=== PATIENT | female | born 1980 | race Caucasian/White ===

== ENCOUNTER 2018-08-13 10:33 | Emergency (ER) | payer MEDICAID ==
[2018-08-13 11:58] LABS: Urine Blood TRACE (NEG); Urine Glucose NEGATIVE (NEG); Urine Protein NEGATIVE (NEG); Urine Specific Gravity 1.025 (1.005-1.030)
--- NOTE | 2018-08-13 12:36 | RAD REPORT ---
EXAM DESCRIPTION: RAD - Hip Right 2 View - 08/13/2018 12:24 pm CLINICAL HISTORY: Fall, persistent right hip pain COMPARISON: None. FINDINGS: AP and frog-leg views of the right hip were obtained. There is no fracture or dislocation . No acute or destructive bony process seen. IMPRESSION: Negative right hip examination for acute findings.
--- NOTE | 2018-08-13 12:46 | EDPHYS ---
Physician Documentation [facility] Name: Meredith Gillette Age: 38 yrs Sex: Female : 1980 Arrival Date: 08/13/2018 Time: 10:35 Bed 12 [facility] MD: DK RAYO ED Physician Masoud Camp HPI: 08/13 12:42 This 38 yrs old Female presents to ER via Ambulatory with complaints of Right pm1 Hip Pain. 12:42 The patient or guardian reports pain. that occurred at home, sustained from a fall, pm1 from a standing position, There is no obvious deformity, The patient is able to self ambulate. The patient is able to bear their full body weight. There is no radiation of the patient's discomfort. The complaints affect the right hip. Onset: The symptoms/episode began/occurred 2 week(s) ago. Modifying factors: The symptoms are alleviated by remaining still, the symptoms are aggravated by palpation and walking. Associated signs and symptoms: Pertinent negatives: chest pain, fever, shortness of breath, calf pain and tenderness. Severity of symptoms: in the emergency department the symptoms are unchanged. The patient has not experienced similar symptoms in the past. The patient has not recently seen a physician. Patient tripped on her bed frame and landed on her hips. Patient with bruise to left hip with initial pain that has resolved. Patient with right hip pain that has continued. Patient has been able to walk since the injury. 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 - Social history:: Smoking status: Patient uses tobacco products, unknown amount. - Ebola Screening: : No symptoms or risks identified at this time. ROS: 12:42 Constitutional: Negative for fever, chills, and weight loss, Eyes: Negative for injury, pm1 pain, redness, and discharge, ENT: Negative for injury, pain, and discharge, Neck: Negative for injury, pain, and swelling, Cardiovascular: Negative for chest pain, palpitations, and edema, Respiratory: Negative for shortness of breath, cough, wheezing, and pleuritic chest pain, Abdomen/GI: Negative for abdominal pain, nausea, vomiting, diarrhea, and constipation, Back: Negative for injury and pain, : Negative for injury, bleeding, discharge, and swelling. 12:42 Skin: Negative for injury, rash, and discoloration, Neuro: Negative for headache, weakness, numbness, tingling, and seizure. 12:42 MS/extremity: Positive for pain, of the right hip, Negative for decreased range of motion, deformity. Exam: 12:42 Constitutional: This is a well developed, well nourished patient who is awake, alert, pm1 and in no acute distress. Head/Face: Normocephalic, atraumatic. Eyes: Pupils equal round and reactive to light, extra-ocular motions intact. Lids and lashes normal. Conjunctiva and sclera are non-icteric and not injected. Cornea within normal limits. Periorbital areas with no swelling, redness, or edema. ENT: Nares patent. No nasal discharge, no septal abnormalities noted. Tympanic membranes are normal and external auditory canals are clear. Oropharynx with no redness, swelling, or masses, exudates, or evidence of obstruction, uvula midline. Mucous membranes moist. Neck: Trachea midline, no thyromegaly or masses palpated, and no cervical lymphadenopathy. Supple, full range of motion without nuchal rigidity, or vertebral point tenderness. No Meningismus. Chest/axilla: Normal chest wall appearance and motion. Nontender with no deformity. No lesions are appreciated. Cardiovascular: Regular rate and rhythm with a normal S1 and S2. No gallops, murmurs, or rubs. Normal PMI, no JVD. No pulse deficits. Respiratory: Lungs have equal breath sounds bilaterally, clear to auscultation and percussion. No rales, rhonchi or wheezes noted. No increased work of breathing, no retractions or nasal flaring. Abdomen/GI: Soft, non-tender, with normal bowel sounds. No distension or tympany. No guarding or rebound. No evidence of tenderness throughout. Back: No spinal tenderness. No costovertebral tenderness. Full range of motion. Skin: Warm, dry with normal turgor. Normal color with no rashes, no lesions, and no evidence of cellulitis. MS/ Extremity: Pulses equal, no cyanosis. Neurovascular intact. Full, normal range of motion. 12:42 Neuro: Orientation: is normal, Motor: is normal, Sensation: is normal, no obvious gross deficits. Vital Signs: 11:07 BP 101 / 74; Pulse 90; Resp 18; Temp 98.1; Pulse Ox 100% on R/A; Weight 90.72 kg; ph Height 5 ft. 9 in. (175.26 cm); Pain 4/10; 11:37 BP 103 / 81; Pulse 90; Resp 18; Pulse Ox 100% on R/A; ph 11:07 Body Mass Index 29.53 (90.72 kg, 175.26 cm) ph MDM: 10:57 Patient medically screened. pm1 12:42 Data reviewed: vital signs. Data interpreted: Pulse oximetry: on room air is 100 %. pm1 Interpretation: normal. Counseling: I had a detailed discussion with the patient and/or guardian regarding: the historical points, exam findings, and any diagnostic results supporting the discharge/admit diagnosis, radiology results, the need for outpatient follow up, to return to the emergency department if symptoms worsen or persist or if there are any questions or concerns that arise at home. 08/13 11:46 Order name: Urine Dipstick--Ancillary (enter results); Complete Time: 11:59 eb 08/13 11:46 Order name: Urine --Ancillary (enter results); Complete Time: 11:59 eb 08/13 11:12 Order name: Hip Right 2 View XRAY; Complete Time: 12:37 pm1 08/13 11:12 Order name: Urine Dipstick-Ancillary (obtain specimen); Complete Time: 11:26 pm1 08/13 11:12 Order name: Urine Test (obtain specimen); Complete Time: 11:26 pm1 Administered Medications: 12:50 Drug: [place] 5 mg-325 mg 1 tabs Route: PO; iw 12:50 Drug: Ibuprofen 600 mg Route: PO; iw Disposition: 08/13/18 12:45 Discharged to Home. Impression: Pain in right hip. - Condition is Stable. - Discharge Instructions: Musculoskeletal Pain, Hip Pain. - Prescriptions for Tylenol- Codeine #3 300-30 mg Oral Tablet - take 2 tablets by ORAL route every 6 hours As needed; 20 tablet. - Medication Reconciliation Form, Thank You Letter, Antibiotic Education, Prescription Opioid Use form. - Follow up: Emergency Department; When: As needed; Reason: Worsening of condition. Follow up: Private Physician; When: 2 - 3 days; Reason: Recheck today's complaints, Continuance of care, Re-evaluation by your physician. - Problem is new. - Symptoms have improved. Addendum: 08/16/2018 08:24 Co-signature as Attending Physician, Masoud Camp MD I agree with the assessment and k dr plan of care. Signatures: Dispatcher [employer] EDMS Masoud Camp MD MD kdr Fifi Bob RN RN iw Danielle Bowers RN RN ph Joselo Deutsch, ASHANTI GRAIN MILLER HELPER pm1 Corrections: (The following items were deleted from the chart) 08/13 13:25 12:45 08/13/2018 12:45 Discharged to Home. Impression: Pain in right hip. Condition is ph Stable. Forms are Medication Reconciliation Form, Thank You Letter, Antibiotic Education, Prescription Opioid Use. Follow up: Emergency Department; When: As needed; Reason: Worsening of condition. Follow up: Private Physician; When: 2 - 3 days; Reason: Recheck today's complaints, Continuance of care, Re-evaluation by your physician. Problem is new. Symptoms have improved. pm1
--- NOTE | 2018-08-13 12:46 | ER ---
Nurse's Notes [facility] Name: Meredith Gillette Age: 38 yrs Sex: Female : 1980 Arrival Date: 08/13/2018 Time: 10:35 Bed 12 [facility] MD: DK RAYO Diagnosis: Pain in right hip Presentation: 08/13 10:59 Presenting complaint: Patient states: she "tripped over her bed" about a week and a ph half ago. PT states she has right hip pain that radiates down her leg. Transition of care: patient was not received from another setting of care. Onset of symptoms was August 13, 2018. Risk Assessment: Do you want to hurt yourself or someone else? Patient reports no desire to harm self or others. Initial Sepsis Screen: Does the patient meet any 2 criteria? No. Patient's initial sepsis screen is negative. Does the patient have a suspected source of infection? No. Patient's initial sepsis screen is negative. Care prior to arrival: None. 10:59 Method Of Arrival: Ambulatory ph 10:59 Acuity: MIL 4 ph Triage Assessment: 11:09 General: Appears in no apparent distress. uncomfortable, Behavior is calm, cooperative, ph appropriate for age, Denies fever. Pain: Complains of pain in right leg Pain radiates to lower leg Pain currently is 4 out of 10 on a pain scale. Pain began 1.5 weeks ago. EENT:. Neuro: Level of Consciousness is awake, alert, obeys commands, Oriented to person, place, time, situation. Cardiovascular: Capillary refill < 3 seconds in bilateral toes Patient's skin is warm and dry. Pulses are all present. Respiratory: Airway is patent Trachea midline Respiratory effort is even, unlabored, Respiratory pattern is regular, symmetrical. Derm: Skin is intact, is healthy with good turgor, Skin is dry, Skin is pink, warm \\T\\ dry. Skin temperature is warm. Musculoskeletal: Circulation, motion, and sensation intact. Range of motion: intact in all extremities. 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 - Social history:: Smoking status: Patient uses tobacco products, unknown amount. - Ebola Screening: : No symptoms or risks identified at this time. Screenin:14 Abuse screen: Denies threats or abuse. Nutritional screening: No deficits noted. ph Tuberculosis screening: No symptoms or risk factors identified. Fall Risk None identified. Assessment: 11:50 Reassessment: Patient appears in no apparent distress at this time. Patient and/or iw family updated on plan of care and expected duration. Pain level reassessed. Patient is alert, oriented x 3, equal unlabored respirations, skin warm/dry/pink. pt ambulatory to bed 12. Vital Signs: 11:07 BP 101 / 74; Pulse 90; Resp 18; Temp 98.1; Pulse Ox 100% on R/A; Weight 90.72 kg; ph Height 5 ft. 9 in. (175.26 cm); Pain 4/10; 11:37 BP 103 / 81; Pulse 90; Resp 18; Pulse Ox 100% on R/A; ph 11:07 Body Mass Index 29.53 (90.72 kg, 175.26 cm) ph ED Course: 10:35 Patient arrived in ED. rg4 10:36 DK RAYO is Private Physician. rg4 10:55 Danielle Bowers, RN is Primary Nurse. ph 10:56 Joselo Deutsch [facility] pm1 10:56 Masoud Camp MD is Attending Physician. pm1 11:00 Arm band placed on. ph 11:03 Triage completed. ph 11:16 Patient has correct armband on for positive identification. Bed in low position. Call ph light in reach. Warm blanket given. 12:18 Patient moved to radiology via wheelchair. mh1 12:19 Hip Right 2 View XRAY In Process Unspecified. EDMS 12:22 Primary Nurse role handed off by Danielle Bowers, MARTIN iw 12:22 Fifi Bob, RN is Primary Nurse. iw 12:22 No provider procedures requiring assistance completed. Patient did not have IV access iw during this emergency room visit. Administered Medications: 12:50 Drug: [place] 5 mg-325 mg 1 tabs Route: PO; iw 12:50 Drug: Ibuprofen 600 mg Route: PO; iw Outcome: 12:45 Discharge ordered by . pm1 13:24 Discharged to home ambulatory. iw 13:24 Condition: good 13:24 Discharge instructions given to patient, Instructed on discharge instructions, follow up and referral plans. medication usage, Demonstrated understanding of instructions, follow-up care, medications, Prescriptions given X 1. 13:25 Patient left the ED. ph Signatures: Dispatcher [employer] EDMS Cassie Bella 1 Fifi Bob RN RN iw Danielle Bowers RN RN ph Joselo Deutsch, ASHANTI NEUROLOGY PROFESSOR pm[address] rg4 Corrections: (The following items were deleted from the chart) 11:20 11:07 BP 101 / 74; Pulse 90bpm; Resp 18bpm; Pulse Ox 100% RA; Pain 4/10; ph ph
[2018-08-13] MEDS ORDERED: IBUPROFEN 200 MG TAB PO ONE (13:04)
[2018-08-13] MEDS ORDERED: HYDROCODONE/APAP 5/325 MG TAB ONE (13:04)
[2018-08-13 13:30] VITALS: TEMP 98.1; O2SAT 100
[2018-08-13 13:31] VITALS: BP 103/81
== END 2018-08-13 13:25 | disposition home or self-care (01) ==
LOC: ER 10:33
DX: M25.551 Pain in right hip (principal); I10 Essential (primary) hypertension; J44.9 Chronic obstructive pulmonary disease, unspecified; F32.9 Major depressive disorder, single episode, unspecified; Z72.0 Tobacco use
CPT/HCPCS: 81003; 81025; 99283

== ENCOUNTER 2019-01-31 17:48 | Emergency (ER) | payer MEDICAID ==
--- NOTE | 2019-01-31 19:50 | ER ---
Nurse's Notes [facility] Name: Meredith Gillette Age: 38 yrs Sex: Female : 1980 Arrival Date: 01/31/2019 Time: 17:53 Bed 5 Private MD: Diagnosis: Dental caries on smooth surface penetrating into dentin Presentation: 01/31 17:59 Presenting complaint: Patient states: Left lower dental pain. Went to dentist today, la1 needs to see oral surgeonmissy not working. Transition of care: patient was not received from another setting of care. Onset of symptoms was January 31, 2019. Risk Assessment: Do you want to hurt yourself or someone else? Patient reports no desire to harm self or others. Initial Sepsis Screen: Does the patient meet any 2 criteria? No. Patient's initial sepsis screen is negative. Does the patient have a suspected source of infection? No. Patient's initial sepsis screen is negative. Care prior to arrival: None. 17:59 Method Of Arrival: Ambulatory la1 17:59 Acuity: MIL 5 la1 Historical: - Allergies: 18:00 No Known Allergies; la1 - Home Meds: 20:10 Buspirone Oral [Active]; gabapentin Oral [Active]; lisinopril Oral [Active]; Topamax lp1 Oral [Active]; - PMHx: 18:00 COPD; Depression; Hypertension; Migraines; la1 - Immunization history:: Adult Immunizations up to date. - Social history:: Smoking status: Patient/guardian denies using tobacco. - Ebola Screening: : No symptoms or risks identified at this time. Screenin:04 Abuse screen: Denies threats or abuse. Denies injuries from another. Nutritional lp1 screening: No deficits noted. Tuberculosis screening: No symptoms or risk factors identified. Fall Risk Assessment: 20:04 General: Appears uncomfortable, Behavior is appropriate for age. Pain: Complains of lp1 pain in mouth Pain currently is 10 out of 10 on a pain scale. Neuro: Level of Consciousness is awake, alert, obeys commands, Oriented to person, place, time, situation. Cardiovascular: Patient's skin is warm and dry. Respiratory: Respiratory effort is even, unlabored, Respiratory pattern is regular, Breath sounds are clear bilaterally. GI: No deficits noted. : No deficits noted. EENT: Oral mucosa is moist. Poor dentition noted. Reports pain in mouth. Derm: Skin is pink, warm \T\ dry. Musculoskeletal: No deficits noted. Vital Signs: 18:00 BP 144 / 102; Pulse 98; Resp 16; Temp 98.7; Pulse Ox 100% on R/A; Weight 99.79 kg; la1 Height 5 ft. 9 in. (175.26 cm); 20:03 BP 138 / 88; Pulse 86; Resp 18; Pulse Ox 96% on R/A; lp1 18:00 Body Mass Index 32.49 (99.79 kg, 175.26 cm) la1 ED Course: 17:53 Patient arrived in ED. am2 18:00 Triage completed. la1 18:00 Arm band placed on right wrist. la1 18:53 Ramonita Chavis FNP-C is [facility]. snw 18:54 Kyle Vera MD is Attending Physician. snw 19:50 Apple Douglas, RN is Primary Nurse. lp1 20:05 Patient has correct armband on for positive identification. lp1 20:05 No provider procedures requiring assistance completed. Patient did not have IV access lp1 during this emergency room visit. Administered Medications: 20:02 Drug: Augmentin 875 mg Route: PO; lp1 20:08 Follow up: Response: Medication administered at discharge. lp1 20:02 Drug: TORadol 30 mg Route: IM; Site: right deltoid; lp1 20:08 Follow up: Response: Medication administered at discharge. lp1 20:03 Drug: [place] 5 mg-325 mg 1 tabs Route: PO; lp1 20:08 Follow up: Response: Medication administered at discharge. lp1 Outcome: 19:49 Discharge ordered by . snw 20:09 Discharged to home ambulatory, with significant other. lp1 20:09 Condition: good 20:09 Discharge instructions given to patient, Instructed on discharge instructions, follow up and referral plans. medication usage, Demonstrated understanding of instructions, follow-up care, medications, Prescriptions given X 3. 20:12 Patient left the ED. lp1 Signatures: Ramonita Chavis FNP-C GARMENT SEWING MACHINE OPERATOR-Csnw Apple Douglas RN RN lp1 Bola Cade RN RN la1 Meredith Deleon am2 Corrections: (The following items were deleted from the chart) 20:05 20:04 Pain: Complains of pain in mouth Pain currently is 10 out of 10 on a pain scale. lp1 lp1 20:06 20:04 EENT: Oral mucosa is moist. Poor dentition noted. lp1 lp1
--- NOTE | 2019-01-31 19:50 | EDPHYS ---
Physician Documentation [facility] Name: Meredith Gillette Age: 38 yrs Sex: Female : 1980 Arrival Date: 01/31/2019 Time: 17:53 Bed 5 Private MD: ED Physician Kyle Vera HPI: 02/01 00:25 This 38 yrs old Female presents to ER via Ambulatory with complaints of snw Toothache. 00:25 The patient presents with pain. The problem is located in the lower right second molar. snw Onset: The symptoms/episode began/occurred gradually, 2 month(s) ago, and became worse yesterday, and became persistent. Duration: The symptoms are continuous. Associated signs and symptoms: Pertinent positives: pain. Severity of symptoms: At their worst the symptoms were moderate. It is unknown whether or not the patient has had similar symptoms in the past. The patient has not recently seen a physician. Historical: - Allergies: 01/31 18:00 No Known Allergies; la1 - Home Meds: 20:10 Buspirone Oral [Active]; gabapentin Oral [Active]; lisinopril Oral [Active]; Topamax lp1 Oral [Active]; - PMHx: 18:00 COPD; Depression; Hypertension; Migraines; la1 - Immunization history:: Adult Immunizations up to date. - Social history:: Smoking status: Patient/guardian denies using tobacco. - Ebola Screening: : No symptoms or risks identified at this time. ROS: 02/01 00:21 Constitutional: Negative for fever, chills, and weight loss, Eyes: Negative for injury, snw pain, redness, and discharge, ENT: Negative for injury, pain, and discharge, Neck: Negative for injury, pain, and swelling, Cardiovascular: Negative for chest pain, palpitations, and edema, Respiratory: Negative for shortness of breath, cough, wheezing, and pleuritic chest pain, Abdomen/GI: Negative for abdominal pain, nausea, vomiting, diarrhea, and constipation, Back: Negative for injury and pain, : Negative for injury, bleeding, discharge, and swelling, MS/Extremity: Negative for injury and deformity, Skin: Negative for injury, rash, and discoloration, Neuro: Negative for headache, weakness, numbness, tingling, and seizure. ENT: Positive for dental pain, Negative for injury or acute deformity. Exam: 00:21 Constitutional: This is a well developed, well nourished patient who is awake, alert, snw and in no acute distress. Head/Face: Normocephalic, atraumatic. Eyes: Pupils equal round and reactive to light, extra-ocular motions intact. Lids and lashes normal. Conjunctiva and sclera are non-icteric and not injected. Cornea within normal limits. Periorbital areas with no swelling, redness, or edema. ENT: Nares patent. No nasal discharge, no septal abnormalities noted. Tympanic membranes are normal and external auditory canals are clear. Oropharynx with no redness, swelling, or masses, exudates, or evidence of obstruction, uvula midline. Mucous membranes moist. dental pain to left mandibular 1st molar Neck: Trachea midline, no thyromegaly or masses palpated, and no cervical lymphadenopathy. Supple, full range of motion without nuchal rigidity, or vertebral point tenderness. No Meningismus. Chest/axilla: Normal chest wall appearance and motion. Nontender with no deformity. No lesions are appreciated. Cardiovascular: Regular rate and rhythm with a normal S1 and S2. No gallops, murmurs, or rubs. Normal PMI, no JVD. No pulse deficits. Respiratory: Lungs have equal breath sounds bilaterally, clear to auscultation and percussion. No rales, rhonchi or wheezes noted. No increased work of breathing, no retractions or nasal flaring. Abdomen/GI: Soft, non-tender, with normal bowel sounds. No distension or tympany. No guarding or rebound. No evidence of tenderness throughout. Back: No spinal tenderness. No costovertebral tenderness. Full range of motion. Skin: Warm, dry with normal turgor. Normal color with no rashes, no lesions, and no evidence of cellulitis. MS/ Extremity: Pulses equal, no cyanosis. Neurovascular intact. Full, normal range of motion. Neuro: Awake and alert, GCS 15, oriented to person, place, time, and situation. Cranial nerves II-XII grossly intact. Motor strength 5/5 in all extremities. Sensory grossly intact. Cerebellar exam normal. Normal gait. Psych: Awake, alert, with orientation to person, place and time. Behavior, mood, and affect are within normal limits. Vital Signs: 01/31 18:00 BP 144 / 102; Pulse 98; Resp 16; Temp 98.7; Pulse Ox 100% on R/A; Weight 99.79 kg; la1 Height 5 ft. 9 in. (175.26 cm); 20:03 BP 138 / 88; Pulse 86; Resp 18; Pulse Ox 96% on R/A; lp1 18:00 Body Mass Index 32.49 (99.79 kg, 175.26 cm) la1 MDM: 19:48 Patient medically screened. snw 02/01 00:24 Data reviewed: vital signs, nurses notes. Data interpreted: Pulse oximetry: on room air snw is 96 %. Interpretation: acceptable. Counseling: I had a detailed discussion with the patient and/or guardian regarding: the historical points, exam findings, and any diagnostic results supporting the discharge/admit diagnosis, the presence of at least one elevated blood pressure reading (>120/80) during this emergency department visit, the need for outpatient follow up, to return to the emergency department if symptoms worsen or persist or if there are any questions or concerns that arise at home. Response to treatment: the patient's symptoms have mildly improved after treatment. Special discussion: Based on the history and exam findings, there is no indication for further emergent testing or inpatient evaluation. I discussed with the patient/guardian the need to see a dentist for further evaluation of the symptoms. Administered Medications: 01/31 20:02 Drug: Augmentin 875 mg Route: PO; lp1 20:08 Follow up: Response: Medication administered at discharge. lp1 20:02 Drug: TORadol 30 mg Route: IM; Site: right deltoid; lp1 20:08 Follow up: Response: Medication administered at discharge. lp1 20:03 Drug: [place] 5 mg-325 mg 1 tabs Route: PO; lp1 20:08 Follow up: Response: Medication administered at discharge. lp1 Disposition: 01/31/19 19:49 Discharged to Home. Impression: Dental caries on smooth surface penetrating into dentin. - Condition is Stable. - Discharge Instructions: Dental Caries, Adult, Dental Pain, Preventive Dental Care, Adult. - Prescriptions for chlorhexidine gluconate 0.12 % Mucous Membrane mouthwash - place 15 milliliter by MUCOUS MEMBRANE route 2 times per day after brushing teeth, swish in mouth for 30 seconds then spit out; 480 milliliter. Amoxicillin 500 mg Oral Capsule - take 1 capsule by ORAL route every 8 hours for 10 days; 30 tablet. Mobic 7.5 mg Oral Tablet - take 1 tablet by ORAL route once daily take with food; 20 tablet. - Medication Reconciliation Form, Thank You Letter, Antibiotic Education, Prescription Opioid Use form. - Follow up: Private Physician; When: 2 - 3 days; Reason: Recheck today's complaints, Continuance of care, Re-evaluation by your physician. Follow up: Emergency Department; When: As needed; Reason: Fever > 102 F. Signatures: Ramonita Chavis, GLOBAL COMPENSATION DIRECTOR-C GLOBAL COMPENSATION DIRECTOR-Csnw Apple Douglas, RN RN lp1 Bola Cade RN RN la1 Corrections: (The following items were deleted from the chart) 20:12 19:49 01/31/2019 19:49 Discharged to Home. Impression: Dental caries on smooth surface lp1 penetrating into dentin. Condition is Stable. Forms are Medication Reconciliation Form, Thank You Letter, Antibiotic Education, Prescription Opioid Use. Follow up: Private Physician; When: 2 - 3 days; Reason: Recheck today's complaints, Continuance of care, Re-evaluation by your physician. Follow up: Emergency Department; When: As needed; Reason: Fever > 102 F. snw
[2019-01-31] MEDS ORDERED: KETOROLAC 30 MG/ML INJ ONE (19:55)
[2019-01-31] MEDS ORDERED: HYDROCODONE/APAP 5/325 MG TAB ONE (19:55)
[2019-01-31] MEDS ORDERED: AMOX/K CLAV 875 MG TAB ONE (19:55)
[2019-01-31 21:43] VITALS: TEMP 98.7
[2019-01-31 21:44] VITALS: BP 138/88; O2SAT 96
== END 2019-01-31 20:12 | disposition home or self-care (01) ==
LOC: ER 17:48
DX: K02.62 Dental caries on smooth surface penetrating into dentin (principal); I10 Essential (primary) hypertension; J44.9 Chronic obstructive pulmonary disease, unspecified; G43.909 Migraine, unspecified, not intractable, without status migrainosus; F32.9 Major depressive disorder, single episode, unspecified
CPT/HCPCS: 96372; 99283

== ENCOUNTER 2019-05-02 10:05 | Emergency (ER) | payer MEDICAID ==
--- NOTE | 2019-05-02 11:34 | RAD REPORT ---
EXAM DESCRIPTION: CT - Thorax Wo Con - 05/02/2019 11:17 am CLINICAL HISTORY: Chest pain 5 COMPARISON: None TECHNIQUE: Computed axial tomography of the chest was obtained. Contrast was not requested. All CT scans are performed using dose optimization technique as appropriate and may include automated exposure control or mA/KV adjustment according to patient size. FINDINGS: The evaluation of mediastinum, blaire and vessels is limited secondary to lack of IV contras t administration. Nondisplaced fractures involve the left fourth and fifth anterolateral ribs Small left pleural effusion. Minimal ground-glass opacities left lung. No mediastinal hematoma IMPRESSION: Nondisplaced fractures involve the left fourth and fifth anterolateral ribs Small left pleural effusion
--- NOTE | 2019-05-02 11:49 | ER ---
Nurse's Notes [facility] Name: Meredith Gillette Age: 39 yrs Sex: Female : 1980 Arrival Date: 05/02/2019 Time: 10:07 Bed 14 Private MD: Diagnosis: Multiple fractures of ribs, left side Presentation: 05/02 10:15 Presenting complaint: Patient states: I was seated on the floor when my son picked me sg up from behind to help me up, squeezing my ribs, have pain on the left side of my ribs and chest, reports increased pain with deep breathing and cough, denies SOB at rest. Transition of care: patient was not received from another setting of care. Onset of symptoms was May 02, 2019. Risk Assessment: Do you want to hurt yourself or someone else? Patient reports no desire to harm self or others. Initial Sepsis Screen: Does the patient meet any 2 criteria? No. Patient's initial sepsis screen is negative. Does the patient have a suspected source of infection? No. Patient's initial sepsis screen is negative. Care prior to arrival: None. 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 - Social history:: Smoking status: Patient/guardian denies using tobacco. - Ebola Screening: : Patient negative for fever greater than or equal to 101.5 degrees Fahrenheit, and additional compatible Ebola Virus Disease symptoms Patient denies exposure to infectious person Patient denies travel to an Ebola-affected area in the 21 days before illness onset No symptoms or risks identified at this time. Screenin:51 Abuse screen: Denies threats or abuse. Denies injuries from another. Nutritional ca1 screening: No deficits noted. Tuberculosis screening: No symptoms or risk factors identified. Fall Risk None identified. Assessment: 10:51 General: Appears in no apparent distress. comfortable, Behavior is calm, cooperative, ca1 appropriate for age. Pain: Complains of pain in left lateral posterior chest Pain does not radiate. Pain currently is 8 out of 10 on a pain scale. Neuro: Level of Consciousness is awake, alert, obeys commands, Oriented to person, place, time, situation, Appropriate for age. Cardiovascular: Heart tones S1 S2 present Capillary refill < 3 seconds Patient's skin is warm and dry. Respiratory: Airway is patent Respiratory effort is even, unlabored, Respiratory pattern is regular, symmetrical, Breath sounds are clear bilaterally. GI: Abdomen is round non-distended, Bowel sounds present X 4 quads. Abd is soft and non tender X 4 quads. : No deficits noted. No signs and/or symptoms were reported regarding the genitourinary system. EENT: No deficits noted. No signs and/or symptoms were reported regarding the EENT system. Derm: Skin is intact, is healthy with good turgor, Skin is pink, warm \T\ dry. Musculoskeletal: Circulation, motion, and sensation intact. Capillary refill < 3 seconds, Range of motion: intact in all extremities. 11:56 Reassessment: Instructed on use of Incentive Spirometer. Demonstrated understanding by ca1 use of IS. Reassessment: Patient appears in no apparent distress at this time. Patient is alert, oriented x 3, equal unlabored respirations, skin warm/dry/pink. Vital Signs: 10:17 BP 154 / 95; Pulse 89; Resp 18; Pulse Ox 100% on R/A; sg 11:25 BP 137 / 94; Pulse 86; Resp 17 S; Pulse Ox 98% on R/A; ca1 ED Course: 10:07 Patient arrived in ED. rg4 10:15 Arm band placed on. sg 10:17 Triage completed. sg 10:39 Alondra Menjivar, MARTIN is Primary Nurse. ca1 10:41 William Angeles PA is PHCP. jr8 10:41 Dejuan Tolbert MD is Attending Physician. jr8 10:51 Patient has correct armband on for positive identification. Bed in low position. Call ca1 light in reach. Side rails up X 1. Pulse ox on. NIBP on. Warm blanket given. 11:17 CT Chest Wo Con In Process Unspecified. EDMS 12:05 No provider procedures requiring assistance completed. Patient did not have IV access ca1 during this emergency room visit. Administered Medications: No medications were administered Outcome: 11:48 Discharge ordered by . jr8 12:05 Discharged to home ambulatory, with significant other. ca1 12:05 Condition: stable 12:05 Discharge instructions given to patient, Instructed on discharge instructions, follow up and referral plans. no drinking with medication, no driving heavy equipment, medication usage, Demonstrated understanding of instructions, follow-up care, medications, Prescriptions given X 2. 12:06 Patient left the ED. ca1 Signatures: Dispatcher [employer] EDMS Maurice Lopez RN RN sg Roszak, Josh, PA PA jr[address] Alondra Menjivar RN RN ca1 Corrections: (The following items were deleted from the chart) 12:06 12:05 Discharge instructions given to patient, Instructed on discharge instructions, ca1 follow up and referral plans. no drinking with medication, no driving heavy equipment, medication usage, Demonstrated understanding of instructions, follow-up care, medications, ca1
--- NOTE | 2019-05-02 11:49 | EDPHYS ---
Physician Documentation [facility] Name: Meredith Gillette Age: 39 yrs Sex: Female : 1980 Arrival Date: 05/02/2019 Time: 10:07 Bed 14 Private MD: ED Physician Dejuan Tolbert HPI: 05/02 11:14 This 39 yrs old Female presents to ER via Ambulatory with complaints of Rib jr8 Pain. 11:14 The patient or guardian reports chest pain that is located primarily in the left jr8 lateral anterior chest. Onset: acutely, 5 day(s) ago. The pain does not radiate. Associated signs and symptoms: The patient has no apparent associated signs or symptoms. The chest pain is described as sharp. Modifying factors: The symptoms are alleviated by nothing. the symptoms are aggravated by activity, breathing, cough. Severity of pain: At its worst the pain was moderate in the emergency department the pain is unchanged. The patient has not experienced similar symptoms in the past. The patient has not recently seen a physician. Patient stated that she was intoxicated and was found on the floor. Son of patient had put her in bed. Stated that upon waking up stated that she had left sided rib pain that is not going away now . 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 - Social history:: Smoking status: Patient/guardian denies using tobacco. - Ebola Screening: : Patient negative for fever greater than or equal to 101.5 degrees Fahrenheit, and additional compatible Ebola Virus Disease symptoms Patient denies exposure to infectious person Patient denies travel to an Ebola-affected area in the 21 days before illness onset No symptoms or risks identified at this time. ROS: 11:14 Constitutional: Negative for fever, chills, and weight loss. jr8 11:14 Cardiovascular: Positive for chest pain, Negative for edema, orthopnea, palpitations, paroxysmal nocturnal dyspnea. 11:14 All other systems are negative. Exam: 11:14 Eyes: Pupils equal round and reactive to light, extra-ocular motions intact. Lids and jr8 lashes normal. Conjunctiva and sclera are non-icteric and not injected. Cornea within normal limits. Periorbital areas with no swelling, redness, or edema. ENT: Nares patent. No nasal discharge, no septal abnormalities noted. Tympanic membranes are normal and external auditory canals are clear. Oropharynx with no redness, swelling, or masses, exudates, or evidence of obstruction, uvula midline. Mucous membranes moist. Neck: Trachea midline, no thyromegaly or masses palpated, and no cervical lymphadenopathy. Supple, full range of motion without nuchal rigidity, or vertebral point tenderness. No Meningismus. Respiratory: Lungs have equal breath sounds bilaterally, clear to auscultation and percussion. No rales, rhonchi or wheezes noted. No increased work of breathing, no retractions or nasal flaring. Abdomen/GI: Soft, non-tender, with normal bowel sounds. No distension or tympany. No guarding or rebound. No evidence of tenderness throughout. Back: No spinal tenderness. No costovertebral tenderness. Full range of motion. Skin: Warm, dry with normal turgor. Normal color with no rashes, no lesions, and no evidence of cellulitis. MS/ Extremity: Pulses equal, no cyanosis. Neurovascular intact. Full, normal range of motion. Neuro: Awake and alert, GCS 15, oriented to person, place, time, and situation. Cranial nerves II-XII grossly intact. Motor strength 5/5 in all extremities. Sensory grossly intact. Cerebellar exam normal. Normal gait. 11:14 Cardiovascular: Regular rate and rhythm with a normal S1 and S2. No gallops, murmurs, or rubs. Normal PMI, no JVD. No pulse deficits. 11:14 Chest/axilla: Inspection: normal, Palpation: tenderness, that is moderate, of the left lateral anterior chest, that totally reproduces the patient's complaints. Vital Signs: 10:17 BP 154 / 95; Pulse 89; Resp 18; Pulse Ox 100% on R/A; sg 11:25 BP 137 / 94; Pulse 86; Resp 17 S; Pulse Ox 98% on R/A; ca1 MDM: 10:41 Patient medically screened. jr8 11:46 Data reviewed: vital signs, nurses notes, radiologic studies, CT scan. Data jr8 interpreted: Pulse oximetry: on room air is 98 %. Interpretation: normal. Counseling: I had a detailed discussion with the patient and/or guardian regarding: the historical points, exam findings, and any diagnostic results supporting the discharge/admit diagnosis, radiology results, the need for outpatient follow up, a family practitioner, to return to the emergency department if symptoms worsen or persist or if there are any questions or concerns that arise at home. 05/02 11:04 Order name: CT Chest Wo Con; Complete Time: 11:36 jr8 Administered Medications: No medications were administered Disposition: 16:23 Co-signature as Attending Physician, Dejuan Tolbert MD Signing chart for administrative ps1 purposes. Did not see or evaluate patient. . Disposition: 05/02/19 11:48 Discharged to Home. Impression: Multiple fractures of ribs, left side. - Condition is Stable. - Discharge Instructions: Rib Fracture, Incentive Spirometer. - Prescriptions for Ibuprofen 800 mg Oral Tablet - take 1 tablet by ORAL route every 12 hours As needed take with food; 20 tablet. Tylenol- Codeine #3 300-30 mg Oral Tablet - take 2 tablets by ORAL route every 6 hours As needed; 20 tablet. - Medication Reconciliation Form, Thank You Letter, Antibiotic Education, Prescription Opioid Use form. - Follow up: Private Physician; When: 5 - 6 days; Reason: Recheck today's complaints, Continuance of care, Re-evaluation by your physician. - Problem is new. - Symptoms have improved. Signatures: Dispatcher [employer] EDID Maurice Lopez, RN RN sg William Angeles PA PA jr8 Dejuan Tolbert MD MD ps1 Alondra Menjivar RN RN ca1 Corrections: (The following items were deleted from the chart) 11:10 10:20 Chest Pa And Lat (2 Views)+[id number] ordered. [facility] 12:06 11:48 05/02/2019 11:48 Discharged to Home. Impression: Multiple fractures of ribs, left ca1 side. Condition is Stable. Forms are Medication Reconciliation Form, Thank You Letter, Antibiotic Education, Prescription Opioid Use. Follow up: Private Physician; When: 5 - 6 days; Reason: Recheck today's complaints, Continuance of care, Re-evaluation by your physician. Problem is new. Symptoms have improved. jr8
[2019-05-02 12:29] VITALS: BP 137/94; O2SAT 98
== END 2019-05-02 12:06 | disposition home or self-care (01) ==
LOC: ER 10:05
DX: S22.42XA Multiple fractures of ribs, left side, initial encounter for closed fracture (principal); I10 Essential (primary) hypertension
CPT/HCPCS: 71250; 99283

== ENCOUNTER 2020-07-31 16:50 | Emergency (ER) | payer MEDICAID, OTHER ==
--- OUTSIDE RECORDS SUMMARY | 2020-07-31 16:53 | XMS REPORT | Continuity of Care Document ---
:1980 Author Organization [facility] t Address [address] [place] [address] Care Team Providers Name Role Phone Unavailable Unavailable Unavailable Problems This patient has no known problems. Allergies, Adverse Reactions, Alerts This patient has no known allergies or adverse reactions. Medications Ordered Filled Start Stop Current Ordering Indication Dosage Frequency Signature Comments Components Source Medication Medication Date Date Medication? Clinician (SIG) Name Name Depo-Benzene Worker Depo-Benzene Worker 2019-0 2020- No Na Mathias [address] [facility] Lisinopril Lisinopril Yes Na Mathias [address] [facility] Topamax Topamax Yes Na Mathias [address] [facility] Amlodipine Amlodipine Yes Na Mathias [address] [facility] Besylate Besylate [facility] Gabapentin Gabapentin Yes Na Mathias [address] [facility] Procedures This patient has no known procedures. Encounters Start End Encounter Admission Attending Care Care Encounter Source Date/Time Date/Time Type Type Clinicians Facility Department ID 2020-05-24 2020-05-24 [facility] [id number] 2020-04-17 2020-04-17 [facility] [id number] [facility] 2020-03-21 2020-03-21 [facility] [id number] [facility] 2020-03-19 2020-03-19 Outpatient [facility] [id number] [facility] 2020-01-25 2020-01-25 Outpatient [facility] [id number] [facility] 2020-01-17 2020-01-17 [facility] [id number] [facility] 13[facility]40[facility]40[facility] 2020-01-16 2020-01-16 [facility] [id number] [facility] 10:47[facility]00 10:47[facility]00 [facility] 2020-01-06 2020-01-06 [facility] [id number] [facility] 18:38[facility]00 18:38:00 [facility] 2020-01-06 2020-01-06 [facility] [id number] [facility] 09[facility]00[facility]00 09[facility]00[facility]00 [facility] Clin[facility] Results This patient has no known results.
[2020-07-31] MEDS ORDERED: METOCLOPRAMIDE 10 MG/2mL INJ ONE (19:05)
[2020-07-31] MEDS ORDERED: DIPHENHYDRAMINE 50 MG/ML VIAL ONE (19:05)
[2020-07-31] MEDS ORDERED: MORPHINE 4 MG/ML SYR ONE (19:06)
[2020-07-31] MEDS ORDERED: NA CHLORIDE 0.9% 1,000 ML ONE ×2 (19:06→20:44)
[2020-07-31] MEDS ORDERED: KETOROLAC 30 MG/ML INJ ONE (19:06)
--- NOTE | 2020-07-31 19:30 | RAD REPORT ---
EXAM DESCRIPTION: Ciarra Single View07/31/2020 7:13 pm CLINICAL HISTORY: Chest pain COMPARISON: 2017 FINDINGS: The lungs appear clear of acute infiltrate. The heart is normal size IMPRESSION: No acute abnormalities displayed
[2020-07-31 19:37] LABS: Absolute Lymphocytes (CBC) 2.8 K/uL (0.7-4.9); Basophils % 0.9 % (0-1.3); Hematocrit 41.9 % (36.0-45.0); Lymphocytes % 29.4 % (15.3-44.8); MPV 8.1 fL (7.6-11.3); Protime INR 1.08; RBC Red Blood Cell Count 4.41 M/uL (3.86-4.86)
--- NOTE | 2020-07-31 19:43 | RAD REPORT ---
EXAM DESCRIPTION: CT - Head Brain Wo Cont - 07/31/2020 7:35 pm CLINICAL HISTORY: Headache COMPARISON: 2014 TECHNIQUE: Computed axial tomography of the head was obtained. IV contrast was not requested. All CT scans are performed using dose optimization technique as appropriate and may include automated exposure control or mA/KV adjustment according to patient size. FINDINGS: An intracranial bleed is not seen . The ventricles are normal in caliber. No extra-axial fluid collection is noted. Fluid within the sinuses/ mastoids is not seen. IMPRESSION: No acute intracranial abnormality is seen. If patient's symptoms persist MRI of the bra in would be recommended.
[2020-07-31 19:52] LABS: ALT/SGPT 29 U/L (12-78); AST/SGOT 32 U/L (15-37); Albumin 3.3 g/dL (3.4-5.0); Alkaline Phosphatase 109 U/L (45-117); BUN Blood Urea Nitrogen 7 mg/dL (7-18); Bicarbonate 29 mmol/L (21-32); Bilirubin Direct < 0.1 mg/dL (0-0.2); Bilirubin Total 0.2 mg/dL (0.2-1.0); Glucose Level 120 mg/dL (74-106); NT PRO-BNP 49 pg/mL (<125); Protein, Total 7.5 g/dL (6.4-8.2); Sodium Level 141 mmol/L (136-145); Troponin (Emerg Dept Use Only) < 0.02 ng/mL (0.0-0.045)
[2020-07-31 19:55] LABS: Magnesium 1.2 mg/dL (1.8-2.4); Potassium 2.8 mmol/L (3.5-5.1)
[2020-07-31] MEDS ORDERED: Magnesium Sulfate 2gm IVPB 2 G/50 ML BAG IV ONE (20:39)
[2020-07-31] MEDS ORDERED: POTASSIUM 25 MEQ EFFERV TAB ONE (20:39)
[2020-07-31] MEDS ORDERED: KCL 20 MEQ/100 mL IVPB 20 MEQ/100 ML BAG IV ONE (20:39)
[2020-07-31 22:01] LABS: SARS-COV-2 RT PCR NEGATIVE (NEGATIVE)
--- NOTE | 2020-07-31 22:58 | ER ---
Nurse's Notes [facility] Name: Meredith Gillette Age: 40 yrs Sex: Female : 1980 Arrival Date: 07/31/2020 Time: 16:54 Bed 20 Private MD: Natalia Mathias Diagnosis: Hypokalemia;Hypomagnesemia;Chest pain, unspecified;Headache Presentation: 07/31 16:57 Chief complaint: Patient states: R CP radiates down R arm for 2 days. NIETO, cold sweats, ll1 fatigue for 1 week. Coronavirus screen: Client denies travel out of the [place] in the last 14 days. chills, congestion, cough unrelated to allergies, diarrhea, difficulty breathing, fatigue, headache, muscle pain, nausea, runny nose, shaking with chills, shortness of breath, Client presents with at least one sign or symptom that may indicate coronavirus-19. Standard/surgical mask placed on the client. Ebola Screen: Patient denies travel to an Ebola-affected area in the 21 days before illness onset. Initial Sepsis Screen: Does the patient meet any 2 criteria? HR > 90 bpm. No. Patient's initial sepsis screen is negative. Does the patient have a suspected source of infection? Yes: Productive cough/pneumonia. Risk Assessment: Do you want to hurt yourself or someone else? Patient reports no desire to harm self or others. Onset of symptoms was July 25, 2020. 16:57 Method Of Arrival: Ambulatory ll1 16:57 Acuity: MIL 3 ll1 Historical: - Allergies: 20:32 No Known Allergies; rr5 - PMHx: 17:00 Hypertension; Depression; COPD; Migraines; ll1 - PSHx: 17:00 ; Tonsillectomy; ll1 - Immunization history:: Flu vaccine is up to date. - Social history:: Smoking status: Patient reports the use of cigarette tobacco products, smokes one-half pack cigarettes per day. Screenin:35 Abuse screen: Denies threats or abuse. Denies injuries from another. Nutritional zb screening: No deficits noted. Tuberculosis screening: No symptoms or risk factors identified. Fall Risk None identified. Assessment: 19:00 General: Appears uncomfortable, Behavior is calm, cooperative, appropriate for age. zb Pain: Complains of pain in headache, and right side chest pain Pain does not radiate. Pain currently is 10 out of 10 on a pain scale. Quality of pain is described as sharp, Pain began 1 day ago. Neuro: Level of Consciousness is awake, alert, obeys commands, Oriented to person, place, time, situation. Cardiovascular: Heart tones S1 S2 present Capillary refill < 3 seconds Patient's skin is warm and dry. Rhythm is regular Chest pain is described as mild. Respiratory: Reports cough that is Airway is patent Respiratory effort is even, unlabored, Respiratory pattern is regular, symmetrical, Breath sounds are clear bilaterally. Denies shortness of breath. GI: Abdomen is flat. Derm: Skin is intact, is healthy with good turgor, Skin is dry, Skin is normal, Skin temperature is warm. Musculoskeletal: Range of motion: intact in all extremities. 19:55 Reassessment: MG 1.2, K 2.8 christian from laboratory called ED provider aware. rr5 20:36 Reassessment: Patient appears in no apparent distress at this time. Patient and/or zb family updated on plan of care and expected duration. Pain level reassessed. Patient is alert, oriented x 3, equal unlabored respirations, skin warm/dry/pink. Patient states feeling better. 21:30 Reassessment: Patient appears in no apparent distress at this time. Patient and/or zb family updated on plan of care and expected duration. Pain level reassessed. Patient is alert, oriented x 3, equal unlabored respirations, skin warm/dry/pink. no changes at this time. pain well manage IV medication infusing. 22:14 Reassessment: IV medication completed. zb 23:03 Reassessment: Patient appears in no apparent distress at this time. Patient and/or zb family updated on plan of care and expected duration. Pain level reassessed. Patient is alert, oriented x 3, equal unlabored respirations, skin warm/dry/pink. Patient denies pain at this time. Vital Signs: 16:57 BP 117 / 75; Pulse 110; Resp 18; Temp 98.9; Pulse Ox 95% on R/A; Weight 107.05 kg; ll1 Height 5 ft. 9 in. (175.26 cm); Pain 10/10; 20:00 BP 104 / 78; Pulse 99; Resp 16; Pulse Ox 99% on R/A; zb 21:00 BP 105 / 82; Pulse 87; Resp 16; Pulse Ox 97% on R/A; zb 22:20 BP 111 / 89; Pulse 89; Resp 16; Pulse Ox 98% on R/A; zb 16:57 Body Mass Index 34.85 (107.05 kg, 175.26 cm) ll1 ED Course: 16:54 Patient arrived in ED. mr 16:54 Natalia Mathias MD is Private Physician. mr 17:00 Triage completed. ll1 17:01 Arm band placed on. ll1 18:21 Joselo Deutsch NP is PHCP. pm1 18:21 Kyle Vera MD is Attending Physician. pm1 18:34 Raya Tomlin RN is Primary Nurse. zb 18:59 Inserted saline lock: 20 gauge in right antecubital area, using aseptic technique. zb Blood collected. Patient maintains SpO2 saturation greater than 95% on room air. 19:13 XRAY Chest (1 view) In Process Unspecified. EDMS 19:35 CT Head Brain wo Cont In Process Unspecified. EDMS 20:35 Patient has correct armband on for positive identification. Bed in low position. Call zb light in reach. Side rails up X 1. hall monitor on. Pulse ox on. NIBP on. Door closed. Noise minimized. Warm blanket given. 20:35 No provider procedures requiring assistance completed. zb 23:03 IV discontinued, intact, bleeding controlled, No redness/swelling at site. Pressure zb dressing applied. Administered Medications: 19:09 Drug: NS 0.9% 1000 ml Route: IV; Rate: 1000 ml; Site: right antecubital; zb 23:33 Follow up: Response: No adverse reaction; Marked relief of symptoms; IV Status: zb Completed infusion; IV Intake: 1000ml 19:09 Drug: Reglan 10 mg Route: IVP; Site: right antecubital; zb 19:20 Follow up: Response: No adverse reaction; Marked relief of symptoms zb 19:09 Drug: Benadryl (diphenhydrAMINE) 25 mg Route: IVP; Site: right antecubital; zb 20:00 Follow up: Response: No adverse reaction; Marked relief of symptoms zb 19:09 Drug: TORadol 30 mg Route: IVP; Site: right antecubital; zb 19:59 Follow up: Response: No adverse reaction; No change in condition zb 20:37 Follow up: Response: No adverse reaction; Marked relief of symptoms; Pain is decreased zb 19:10 Drug: morphine 4 mg {Note: RASS 0.} Route: IVP; Site: right antecubital; zb 19:30 Follow up: Response: No adverse reaction; Marked relief of symptoms; Pain is decreased; zb RASS: Alert and Calm (0) 20:31 Drug: Potassium Effervescent Tablet 50 mEq Route: PO; rr5 22:17 Follow up: Response: No adverse reaction zb 20:31 Drug: NS 0.9% 1000 ml Route: IV; Rate: 1000 ml; Site: right antecubital; rr5 22:16 Follow up: Response: No adverse reaction; Marked relief of symptoms; IV Status: zb Completed infusion; IV Intake: 1000ml 20:32 Drug: Potassium Chloride 20 mEq Route: IV; Rate: calculated rate; Site: right rr5 antecubital; 22:17 Follow up: Response: No adverse reaction; IV Status: Completed infusion; IV Intake: 50mlzb 21:32 Drug: Magnesium Sulfate 2 grams Route: IVPB; Infused Over: 2 hrs; Site: right zb antecubital; 22:17 Follow up: Response: No adverse reaction; IV Status: Completed infusion; IV Intake: 50mlzb Intake: 22:16 IV: 1000ml; Total: 1000ml. zb 22:17 IV: 50ml; Total: 1050ml. zb 22:17 IV: 50ml; Total: 1100ml. zb 23:33 IV: 1000ml; Total: 2100ml. zb Outcome: 22:58 Discharge ordered by . pm1 23:02 Condition: stable zb 23:33 Discharged to home ambulatory. zb 23:33 Discharge instructions given to patient, Instructed on discharge instructions, follow up and referral plans. Demonstrated understanding of instructions, follow-up care. 23:34 Patient left the ED. zb Signatures: Dispatcher [employer] EDAdry Mejía Joselo, MEDICARE INTERVIEWER MEDICARE INTERVIEWER pm1 Codey Cardozo RN RN rr5 Jb David RN RN ll1 Raya Tomlin RN RN zb Corrections: (The following items were deleted from the chart) 22:21 22:14 BP 104 / 78; Pulse 99bpm; Resp 16bpm; Pulse Ox 99% RA; zb zb
--- NOTE | 2020-07-31 22:59 | EDPHYS ---
Physician Documentation [facility] Name: Meredith Gillette Age: 40 yrs Sex: Female : 1980 Arrival Date: 07/31/2020 Time: 16:54 Bed 20 Private MD: Natalia Mathias ED Physician Kyle Vera HPI: 07/31 19:06 This 40 yrs old Female presents to ER via Ambulatory with complaints of Chest pm1 Pain, Headache. 19:06 The patient or guardian reports chest pain that is located primarily in the anterior pm1 aspect of right upper chest. 19:06 Onset: 2 day(s) ago. The pain radiates to the right arm. Associated signs and symptoms: pm1 Pertinent positives: headache, Pertinent negatives: nausea, shortness of breath, vomiting. The chest pain is described as sharp. Duration: The patient or guardian reports multiple episodes, that have now resolved. Modifying factors: The symptoms are alleviated by nothing. the symptoms are aggravated by emotionally stressful situations. Severity of pain: in the emergency department the pain chest pain is resolved. Headache still present. The patient has not recently seen a physician. Historical: - Allergies: 20:32 No Known Allergies; rr5 - PMHx: 17:00 Hypertension; Depression; COPD; Migraines; ll1 - PSHx: 17:00 ; Tonsillectomy; ll1 - Immunization history:: Flu vaccine is up to date. - Social history:: Smoking status: Patient reports the use of cigarette tobacco products, smokes one-half pack cigarettes per day. ROS: 19:06 Constitutional: Negative for fever, chills, and weight loss. pm1 19:06 Respiratory: Negative for shortness of breath, cough, wheezing, and pleuritic chest pain, Abdomen/GI: Negative for abdominal pain, nausea, vomiting, diarrhea, and constipation, Back: Negative for injury and pain, : Negative for injury, bleeding, discharge, and swelling, MS/Extremity: Negative for injury and deformity, Skin: Negative for injury, rash, and discoloration. 19:06 Cardiovascular: Positive for chest pain, Negative for edema, palpitations. 19:06 Neuro: Positive for headache, Negative for dizziness, numbness, tingling, weakness. Exam: 19:06 Constitutional: This is a well developed, well nourished patient who is awake, alert, pm1 and in no acute distress. 19:06 Neck: Trachea midline, no thyromegaly or masses palpated, and no cervical lymphadenopathy. Supple, full range of motion without nuchal rigidity, or vertebral point tenderness. No Meningismus. 19:06 Back: No spinal tenderness. No costovertebral tenderness. Full range of motion. Skin: Warm, dry with normal turgor. Normal color with no rashes, no lesions, and no evidence of cellulitis. MS/ Extremity: Pulses equal, no cyanosis. Neurovascular intact. Full, normal range of motion. 19:06 Head/face: Noted is no obvious of injury or deformity except tenderness, that is mild, of the forehead. 19:06 Cardiovascular: Exam negative for acute changes, Rate: normal, Rhythm: regular, Pulses: no pulse deficits are appreciated, Heart sounds: normal, normal S1and S2. 19:06 Respiratory: Exam negative for acute changes, respiratory distress, shortness of breath, Breath sounds: are clear throughout. 19:06 Neuro: Exam negative for acute changes, Orientation: is normal, Mentation: is normal, Motor: is normal, moves all fours. Vital Signs: 16:57 BP 117 / 75; Pulse 110; Resp 18; Temp 98.9; Pulse Ox 95% on R/A; Weight 107.05 kg; ll1 Height 5 ft. 9 in. (175.26 cm); Pain 10/10; 20:00 BP 104 / 78; Pulse 99; Resp 16; Pulse Ox 99% on R/A; zb 21:00 BP 105 / 82; Pulse 87; Resp 16; Pulse Ox 97% on R/A; zb 22:20 BP 111 / 89; Pulse 89; Resp 16; Pulse Ox 98% on R/A; zb 16:57 Body Mass Index 34.85 (107.05 kg, 175.26 cm) ll1 MDM: 18:22 Patient medically screened. pm1 22:57 Data reviewed: vital signs. Data interpreted: Pulse oximetry: on room air is 98 %. pm1 Interpretation: normal. Counseling: I had a detailed discussion with the patient and/or guardian regarding: the historical points, exam findings, and any diagnostic results supporting the discharge/admit diagnosis, lab results, radiology results, the need for outpatient follow up, to return to the emergency department if symptoms worsen or persist or if there are any questions or concerns that arise at home. 07/31 18:42 Order name: Basic Metabolic Panel pm1 07/31 18:42 Order name: CBC with Diff; Complete Time: 19:58 pm1 07/31 18:42 Order name: LFT's pm1 07/31 18:42 Order name: Magnesium; Complete Time: 19:58 pm1 07/31 18:42 Order name: NT PRO-BNP; Complete Time: 19:58 pm1 07/31 18:42 Order name: PT-INR; Complete Time: 19:58 pm1 07/31 18:42 Order name: Troponin (emerg Dept Use Only); Complete Time: 19:58 pm1 07/31 18:42 Order name: Basic Metabolic Panel; Complete Time: 19:58 EDMS 07/31 18:43 Order name: Liver (Hepatic) Function; Complete Time: 19:58 EDMS 07/31 19:50 Order name: Strep; Complete Time: 21:26 pm1 07/31 21:26 Order name: Throat Culture EDMS 07/31 22:01 Order name: COVID-19/FLU A+B; Complete Time: 22:53 EDMS 07/31 17:02 Order name: EKG; Complete Time: 17:02 aa5 07/31 18:42 Order name: XRAY Chest (1 view); Complete Time: 19:48 pm1 07/31 18:42 Order name: Cardiac monitoring; Complete Time: 20:36 pm1 07/31 18:42 Order name: EKG - Nurse/Tech; Complete Time: 20:37 pm07/31 18:42 Order name: IV Saline Lock; Complete Time: 20:37 pm07/31 18:42 Order name: Labs collected and sent; Complete Time: 20:37 pm1 07/31 18:42 Order name: CT Head Brain wo Cont; Complete Time: 19:48 pm1 07/31 18:42 Order name: O2 Per Protocol; Complete Time: 20:37 pm1 07/31 18:42 Order name: O2 Sat Monitoring; Complete Time: 20:37 pm1 07/31 18:42 Order name: Urine Dipstick-Ancillary (obtain specimen); Complete Time: 23:33 pm1 07/31 18:42 Order name: Urine Test (obtain specimen); Complete Time: 23:33 pm1 Administered Medications: 19:09 Drug: NS 0.9% 1000 ml Route: IV; Rate: 1000 ml; Site: right antecubital; zb 23:33 Follow up: Response: No adverse reaction; Marked relief of symptoms; IV Status: zb Completed infusion; IV Intake: 1000ml 19:09 Drug: Reglan 10 mg Route: IVP; Site: right antecubital; zb 19:20 Follow up: Response: No adverse reaction; Marked relief of symptoms zb 19:09 Drug: Benadryl (diphenhydrAMINE) 25 mg Route: IVP; Site: right antecubital; zb 20:00 Follow up: Response: No adverse reaction; Marked relief of symptoms zb 19:09 Drug: TORadol 30 mg Route: IVP; Site: right antecubital; zb 19:59 Follow up: Response: No adverse reaction; No change in condition zb 20:37 Follow up: Response: No adverse reaction; Marked relief of symptoms; Pain is decreased zb 19:10 Drug: morphine 4 mg {Note: RASS 0.} Route: IVP; Site: right antecubital; zb 19:30 Follow up: Response: No adverse reaction; Marked relief of symptoms; Pain is decreased; zb RASS: Alert and Calm (0) 20:31 Drug: Potassium Effervescent Tablet 50 mEq Route: PO; rr5 22:17 Follow up: Response: No adverse reaction zb 20:31 Drug: NS 0.9% 1000 ml Route: IV; Rate: 1000 ml; Site: right antecubital; rr5 22:16 Follow up: Response: No adverse reaction; Marked relief of symptoms; IV Status: zb Completed infusion; IV Intake: 1000ml 20:32 Drug: Potassium Chloride 20 mEq Route: IV; Rate: calculated rate; Site: right rr5 antecubital; 22:17 Follow up: Response: No adverse reaction; IV Status: Completed infusion; IV Intake: 50mlzb 21:32 Drug: Magnesium Sulfate 2 grams Route: IVPB; Infused Over: 2 hrs; Site: right zb antecubital; 22:17 Follow up: Response: No adverse reaction; IV Status: Completed infusion; IV Intake: 50mlzb Disposition: 07/31/20 22:58 Discharged to Home. Impression: Hypokalemia, Hypomagnesemia, Chest pain, unspecified, Headache. - Condition is Stable. - Discharge Instructions: Nonspecific Chest Pain, Potassium Content of Foods, General Headache Without Cause, Tension Headache, Adult, Hypomagnesemia, Stress and Stress Management, Hypokalemia. - Medication Reconciliation Form, Thank You Letter, Antibiotic Education, Prescription Opioid Use form. - Follow up: Emergency Department; When: As needed; Reason: Worsening of condition. Follow up: Private Physician; When: 2 - 3 days; Reason: Recheck today's complaints, Continuance of care, Re-evaluation by your physician. - Problem is new. - Symptoms have improved. Addendum: 08/03/2020 15:41 Co-signature as Attending Physician, Kyle Vera MD. m a2 Signatures: Dispatcher [employer] EDOH Joselo Deutsch, K 9 HANDLER/ DEPUTY K 9 HANDLER/ DEPUTY pm1 Kyle Vera MD MD ma2 Codey Cardozo, RN RN rr5 Jb David RN RN ll1 Raya Tomlin RN RN zb Corrections: (The following items were deleted from the chart) 07/31 21:15 19:50 CORONAVIRUS+MR.LAB.BRZ ordered. EDOH EDOH 21:15 19:50 Influenza Screen (A \T\ B)+BA.LAB.BRZ ordered. [facility] EDOH 23:34 22:58 07/31/2020 22:58 Discharged to Home. Impression: Hypokalemia; Hypomagnesemia; zb Chest pain, unspecified; Headache. Condition is Stable. Forms are Medication Reconciliation Form, Thank You Letter, Antibiotic Education, Prescription Opioid Use. Follow up: Emergency Department; When: As needed; Reason: Worsening of condition. Follow up: Private Physician; When: 2 - 3 days; Reason: Recheck today's complaints, Continuance of care, Re-evaluation by your physician. Problem is new. Symptoms have improved. pm1
[2020-07-31 23:35] LABS: Urine Blood 1+ (Negative); Urine Glucose Negative (Negative); Urine Protein Negative (Negative); Urine pH 5.5 (5.0-7.0)
[2020-07-31 23:44] VITALS: TEMP 98.9
[2020-07-31 23:48] VITALS: BP 111/89; O2SAT 98
--- NOTE | 2020-08-01 17:02 | EKG ---
Test Date: 2020-07-31 Test Time: 17:07:22 Disintegrator Feeder: NISHANT MEASUREMENT RESULTS: Intervals: Rate: 104 ND: 126 QRSD: 78 QT: 346 QTc: 454 [place]: P: 74 ND: 126 QRS: 72 T: 84 INTERPRETIVE STATEMENTS: Sinus tachycardia Nonspecific ST abnormality Abnormal ECG Compared to ECG 06/12/2015 19:00:53 ST (T wave) deviation now present Electronically Signed On 08-01-20 17:00:35 CDT by Lambert Woodard
--- NOTE | 2020-08-01 17:02 | EKG ---
Test Date: 2020-07-31 Test Time: 17:08:06 Rocket Assembly Operator: NISHANT MEASUREMENT RESULTS: Intervals: Rate: 102 MN: 130 QRSD: 80 QT: 352 QTc: 458 [place]: P: 75 MN: 130 QRS: 69 T: 80 INTERPRETIVE STATEMENTS: Sinus tachycardia Nonspecific ST and T wave abnormality Abnormal ECG Compared to ECG 07/31/2020 17:07:22 No significant changes Electronically Signed On 08-01-20 17:00:34 CDT by Lambert Woodard
== END 2020-07-31 23:34 | disposition home or self-care (01) ==
LOC: ER 16:50
DX: E87.6 Hypokalemia (principal); E83.42 Hypomagnesemia; R51.9 Headache, unspecified; I10 Essential (primary) hypertension; F17.210 Nicotine dependence, cigarettes, uncomplicated; Z20.822 Contact with and (suspected) exposure to COVID-19
CPT/HCPCS: 96365; 96361; 93005 ×2; 87070; 85025; 80048; 36415; 83735; 85610; 80076; 87081; 81003; 84484; 83880; 0240U; 70450; 71045; 96375; 99285; J2765; J1200; J3480; J3475; J7030 ×2

== ENCOUNTER 2021-05-24 17:32 | Emergency (ER) | payer OTHER ==
--- OUTSIDE RECORDS SUMMARY | 2021-05-24 17:34 | XMS REPORT | Continuity of Care Document ---
:1980 Author Organization [facility] t Address [address] [place] [address] Care Team Providers Name Role Phone Unavailable Unavailable Unavailable Problems This patient has no known problems. Allergies, Adverse Reactions, Alerts This patient has no known allergies or adverse reactions. Medications Ordered Filled Start Stop Current Ordering Indication Dosage Frequency Signature Comments Components Source Medication Medication Date Date Medication? Clinician (SIG) Name Name Depo-Home Staging Specialist Depo-Home Staging Specialist 2020-0 2020- No Na Mathias [address] [facility] Lisinopril Lisinopril Yes Na Mathias [address] [facility] Topamax Topamax Yes Na Mathias [address] [facility] Amlodipine Amlodipine Yes Na Mathias [address] [facility] Besylate Besylate kes - [facility] Gabapentin Gabapentin Yes Na Mathias [address] [facility] Procedures This patient has no known procedures. Encounters Start End Encounter Admission Attending Care Care Encounter Source Date/Time Date/Time Type Type Clinicians Facility Department ID 2021-05-03 2021-05-03 [facility] [id number] 2021-04-01 2021-04-01 [facility] [id number] [facility] 2021-03-14 2021-03-14 [facility] [id number] [facility] 2020-12-03 2020-12-03 [facility] [id number] [facility] 2020-10-16 2020-10-16 [facility] [id number] [facility] 2020-10-11 2020[facility]10-11 [facility] [id number] [facility] 2020-09-13 2020-09-13 [facility] [id number] [facility] 2020-08-27 2020-08-27 [facility] [id number] [facility] 2020-08-07 2020-08-07 [facility] [id number] [facility] 2020-07-31 2020-07-31 [facility] [id number] [facility] 2020-05-24 2020-05-24 [facility] [id number] [facility] 2020-04-17 2020-04-17 [facility] [id number] [facility] 2020-03-21 2020-03-21 [facility] [id number] [facility] 2020-03-19 2020-03-19 Outpatient [facility] [id number] [facility] 2020-01-25 2020-01-25 Outpatient [facility] [id number] [facility]00 [facility] 2020-01-17 2020-01-17 [facility] [id number] [facility] 13[facility]40[facility]00 13:40[facility]00 [facility] 2020-01-16 2020-01-16 [facility] [id number] 10:47[facility]00 10:47:00 [facility] 2020-01-06 2020-01-06 [facility] [id number] [facility] 18:38:00 18:38:00 [facility] 2020-01-06 2020-01-06 [facility] [id number] [facility] 09:00[facility]00 09:00:00 [facility] Results This patient has no known results.
--- NOTE | 2021-05-24 18:49 | RAD REPORT ---
EXAM DESCRIPTION: RAD - Ankle Left 3 View - 05/24/2021 6:23 pm CLINICAL HISTORY: PAIN COMPARISON: No comparisons FINDINGS/IMPRESSION: Minimally displaced spiral fracture of the distal fibular diaphysis. The fractu re line extends to the tibiofibular syndesmosis. Alignment is near anatomic.
[2021-05-24] MEDS ORDERED: MORPHINE 4 MG/ML SYR ONE (20:29)
--- NOTE | 2021-05-24 21:16 | ER ---
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 Splint in ll1 place by EMS. EMS states: Splint applied, VSS. No meds given. Coronavirus screen: Vaccine status: Patient reports receiving the 2nd dose of the covid vaccine. Client denies travel out of the [place] in the last 14 days. At this time, the client does not indicate any symptoms associated with coronavirus-19. Ebola Screen: Patient denies travel to an Ebola-affected area in the 21 days before illness onset. Initial Sepsis Screen: Does the patient meet any 2 criteria? HR > 90 bpm. No. Patient's initial sepsis screen is negative. Does the patient have a suspected source of infection? Yes: Bone or joint infection. Risk Assessment: Do you want to hurt yourself or someone else? Patient reports no desire to harm self or others. Onset of symptoms was May 24, 2021. 17:38 Method Of Arrival: EMS ll1 17:38 Acuity: MIL 4 ll1 21:43 Care prior to arrival: None. Mechanism of Injury: No Mechanism of Injury. tw5 Triage Assessment: 17:41 General: Appears uncomfortable, Behavior is calm, cooperative, appropriate for age. ll1 Pain: Complains of pain in L ankle Quality of pain is described as aching, throbbing, Aggravated by increased activity. Neuro: No deficits noted. Cardiovascular: No deficits noted. Respiratory: No deficits noted. Musculoskeletal: Circulation, motion, and sensation intact. Capillary refill < 3 seconds, Reports pain in L ankle. Historical: - Allergies: 17:40 No Known Drug Allergies; ll1 - PMHx: 17:40 COPD; Depression; Hypertension; Migraines; gatric ulcer; ll1 - PSHx: 17:40 Tonsillectomy; section; ll1 - Immunization history:: Client reports receiving the 2nd dose of the Covid vaccine. - Social history:: Smoking status: Patient reports the use of cigarette tobacco products, smokes one-half pack cigarettes per day. - Immunization history: Last tetanus immunization: - up to date. Screenin:57 Abuse screen: Denies threats or abuse. Denies injuries from another. Nutritional as6 screening: No deficits noted. Tuberculosis screening: No symptoms or risk factors identified. Fall Risk Fall in past 12 months (25 points). Total Major Fall Scale indicates Low Risk Score (25-44 pts). Frequent Obs/Assesments occuring As available Patient and Family Educated on Fall Prevention Program and strategies. Primary Survey: 19:57 NO uncontrolled hemorrhage observed. A: The patient is alert. Breathing/Chest: as6 Respiratory pattern: regular, Respiratory effort: spontaneous. Circulation: Pulses: palpable . Disability Alert. Exposure/Environment: Obvious injury(ies) are noted at this time: l ankle pain. 21:43 Reassessment Breathing/Chest Respiratory pattern Regular. tw5 Assessment: 19:55 General: Appears uncomfortable, Behavior is calm, cooperative. Pain: Complains of pain as6 in left lateral ankle and left Achilles. Neuro: Level of Consciousness is awake, alert, obeys commands, Oriented to person, place, time, situation. Cardiovascular: Capillary refill < 3 seconds Patient's skin is warm and dry. Respiratory: Airway is patent Trachea midline Respiratory effort is even, unlabored, Respiratory pattern is regular, symmetrical. Musculoskeletal: Swelling present in left lateral ankle, left Achilles, left medial ankle and anterior aspect of left ankle Reports pain in left lateral ankle, left Achilles, left medial ankle and anterior aspect of left ankle. 20:33 Reassessment: Patient appears in no apparent distress at this time. No changes from tw5 previously documented assessment. Pain: Pain currently is 10 out of 10 on a pain scale. 20:34 General: socks provided. tw5 21:41 General: Appears in no apparent distress. Behavior is calm, cooperative, appropriate tw5 for age. Vital Signs: 17:38 BP 110 / 74; Pulse 107; Resp 18; Temp 97.5; Pulse Ox 98% ; Height 5 ft. 8 in. (172.72 ll1 cm); Pain 10/10; 19:53 BP 117 / 74; Pulse 103; Resp 18 S; Pulse Ox 99% on R/A; as6 21:41 Pulse 97; Resp 18; Pulse Ox 97% on R/A; Pain 9/10; tw5 Stefan Coma Score: 19:58 Eye Response: spontaneous(4). Verbal Response: oriented(5). Motor Response: obeys as6 commands(6). Total: 15. Trauma Score (Adult): 19:58 Eye Response: spontaneous(1); Verbal Response: oriented(1); Motor Response: obeys as6 commands(2); Systolic BP: > 89 mm Hg(4); Respiratory Rate: 10 to 29 per min(4); Stefan Score: 15; Trauma Score: 12 ED Course: 17:35 Patient arrived in ED. as 17:40 Triage completed. ll1 17:41 Arm band placed on. ll1 18:24 Ankle Left 3 View XRAY In Process Unspecified. EDMS 19:27 Alfie Brady MD is Attending Physician. 7 19:53 Tommy Sabillon RN is Primary Nurse. as6 20:33 Patient has correct armband on for positive identification. tw5 20:33 Assisted to bathroom. crutch walking. tw5 20:33 Patient did not have IV access during this emergency room visit. tw5 21:13 Orthoglass splint: Posterior short lleg splint applied on left leg. oe 21:14 Terrance Randle MD is Referral Physician. 7 21:41 No provider procedures requiring assistance completed. tw5 Administered Medications: 20:33 Drug: morphine 4 mg Route: IM; Site: right deltoid; tw5 21:40 Follow up: Response: No adverse reaction; RASS: Alert and Calm (0) tw5 21:40 Drug: HYDROcodone-acetaminophen 5 mg-325 mg 1 tabs Route: PO; tw5 21:41 Follow up: Response: No adverse reaction; Medication administered at discharge. tw5 Intake: 21:44 PO: 0ml; Total: 0ml. tw5 Output: 21:44 Urine: 0ml; Total: 0ml. tw5 Outcome: 21:15 Discharge ordered by . 7 21:41 Discharged to home via wheelchair. tw5 21:41 Condition: improved 21:41 Discharge instructions given to patient, Instructed on crutch walking. 21:44 Patient left the ED. tw5 Signatures: Dispatcher [employer] EDMS Melissa Chung [place] oe Lewis, Lynsay, RN RN ll1 Alfie Brady MD MD mh7 Harika Javed tw5 Tommy Sabillon RN RN as6
--- NOTE | 2021-05-24 21:16 | EDPHYS ---
Physician Documentation [facility] Name: Meredith Gillette Age: 41 yrs Sex: Female : 1980 Arrival Date: 05/24/2021 Time: 17:35 Bed 11 Private MD: ED Physician Alfie Brady HPI: 05/24 20:22 This 41 yrs old Female presents to ER via EMS with complaints of Fall Injury. mh7 20:22 The patient presents with an injury. mh7 20:22 The complaints affect the left ankle. Onset: The symptoms/episode began/occurred just mh7 prior to arrival, today. Context: The problem was sustained at a friend's home, resulted from a mis-step by the patient, on a floor edge, Twisted, unknown if inversion or eversion The patient is unable to bear weight. The patient is not able to ambulate. Associated signs and symptoms: Pertinent positives: swelling, Pertinent negatives: calf tenderness, fever, nausea, numbness, rash, tingling, vomiting, warmth, weakness. Modifying factors: The symptoms are alleviated by nothing, the symptoms are aggravated by weight bearing, movement. Severity of symptoms: At their worst the symptoms were moderate, earlier today, in the emergency department the symptoms are unchanged. Patient states that she accidentally cut her left foot stuck between 2 objects at a friend's home and twisted her ankle while falling. She denies any head injury or LOC. She denies any numbness/tingling, or weakness.. Historical: - Allergies: 17:40 No Known Drug Allergies; ll1 - PMHx: 17:40 COPD; Depression; Hypertension; Migraines; gatric ulcer; ll1 - PSHx: 17:40 Tonsillectomy; section; ll1 - Immunization history:: Client reports receiving the 2nd dose of the Covid vaccine. - Social history:: Smoking status: Patient reports the use of cigarette tobacco products, smokes one-half pack cigarettes per day. - Immunization history: Last tetanus immunization: - up to date. ROS: 20:22 Constitutional: Negative for fever, chills, and weight loss, Eyes: Negative for injury, mh7 pain, redness, and discharge, ENT: Negative for injury, pain, and discharge, Neck: Negative for injury, pain, and swelling, Cardiovascular: Negative for chest pain, palpitations, and edema, Respiratory: Negative for shortness of breath, cough, wheezing, and pleuritic chest pain, Abdomen/GI: Negative for abdominal pain, nausea, vomiting, diarrhea, and constipation, Back: Negative for injury and pain, : Negative for injury, bleeding, discharge, and swelling, Skin: Negative for injury, rash, and discoloration, Neuro: Negative for headache, weakness, numbness, tingling, and seizure, Psych: Negative for depression, anxiety, suicide ideation, homicidal ideation, and hallucinations, Allergy/Immunology: Negative for hives, rash, and allergies, Endocrine: Negative for neck swelling, polydipsia, polyuria, polyphagia, and marked weight changes, Hematologic/Lymphatic: Negative for swollen nodes, abnormal bleeding, and unusual bruising. Exam: 20:22 Head/Face: Normocephalic, atraumatic. Skin: Warm, dry with normal turgor. Normal mh7 color with no rashes, no lesions, and no evidence of cellulitis. 20:22 Neuro: Awake and alert, GCS 15, oriented to person, place, time, and situation. Cranial nerves II-XII grossly intact. Motor strength 5/5 in all extremities. Sensory grossly intact. Cerebellar exam normal. Normal gait. Psych: Awake, alert, with orientation to person, place and time. Behavior, mood, and affect are within normal limits. 20:22 Constitutional: The patient appears in no acute distress, alert, awake, uncomfortable. 20:22 Musculoskeletal/extremity: Extremities: noted in the left lateral ankle: decreased ROM, pain, swelling, tenderness, ROM: limited active range of motion due to pain, in the Left ankle, limited passive range of motion due to pain, in the Left ankle, Circulation is intact in all extremities. Sensation intact. Compartment Syndrome exam of affected extremity: is normal. no numbness, no tingling, no sensation deficit, no palor, no weak pulses, Joints: the left ankle displays painful range of motion, swelling, tenderness, Weight bearing: is unable to bear weight, Tendon exam: specific tendon testing normal through active and passive range of motion 20:22 Musculoskeletal/extremity: No left knee or leg tenderness, swelling, ecchymosis.. mh7 Vital Signs: 17:38 BP 110 / 74; Pulse 107; Resp 18; Temp 97.5; Pulse Ox 98% ; Height 5 ft. 8 in. (172.72 ll1 cm); Pain 10/10; 19:53 BP 117 / 74; Pulse 103; Resp 18 S; Pulse Ox 99% on R/A; as6 21:41 Pulse 97; Resp 18; Pulse Ox 97% on R/A; Pain 9/10; tw5 Citra Coma Score: 19:58 Eye Response: spontaneous(4). Verbal Response: oriented(5). Motor Response: obeys as6 commands(6). Total: 15. Trauma Score (Adult): 19:58 Eye Response: spontaneous(1); Verbal Response: oriented(1); Motor Response: obeys as6 commands(2); Systolic BP: > 89 mm Hg(4); Respiratory Rate: 10 to 29 per min(4); Citra Score: 15; Trauma Score: 12 Procedures: 21:12 Splinting: Splint applied to left ankle using Orthoglass splint, applied by [facility] Examined by me, post splint application: neurovascular intact, 2+ distal pulses palpable, brisk capillary refill noted, Patient tolerated well. MDM: 21:09 Differential diagnosis: fracture, sprain, arthritis. Data reviewed: vital signs, nurses [facility] notes, EMS record, radiologic studies, plain films. Data interpreted: Pulse oximetry: on room air is 99 %. Interpretation: normal. Counseling: I had a detailed discussion with the patient and/or guardian regarding: the historical points, exam findings, and any diagnostic results supporting the discharge/admit diagnosis, radiology results, the need for outpatient follow up, a orthopedic surgeon, to return to the emergency department if symptoms worsen or persist or if there are any questions or concerns that arise at home. Response to treatment: the patient's symptoms have markedly improved after treatment. 21:12 ED course: Feels better, well-appearing, no acute distress, vital signs stable, 7 neurovascular intact, no focal neurological deficits. Discussed test results and findings with the patient. She request to be discharged from the ED at this time. She will follow up with orthopedics, but explained to return to ED if worsening of symptoms or any other urgent concerns.. 21:15 Patient medically screened. [facility] 05/24 17:56 Order name: Ankle Left 3 View XRAY; Complete Time: 19:54 ll1 05/24 20:16 Order name: Splint - Ankle: Posterior; Complete Time: 21:13 mh7 05/24 20:17 Order name: Crutches; Complete Time: 21:44 mh7 Administered Medications: 20:33 Drug: morphine 4 mg Route: IM; Site: right deltoid; tw5 21:40 Follow up: Response: No adverse reaction; RASS: Alert and Calm (0) tw5 21:40 Drug: HYDROcodone-acetaminophen 5 mg-325 mg 1 tabs Route: PO; tw5 21:41 Follow up: Response: No adverse reaction; Medication administered at discharge. tw5 Disposition Summary: 05/24/21 21:15 Discharge Ordered Location: Home [facility] Problem: new [facility] Symptoms: have improved [facility] Condition: Stable [facility] Diagnosis - Distal fibula fracture, left mh7 Followup: 7 - With: Private Physician - When: 1 - 2 days - Reason: Worsening of condition, Recheck today's complaints, Continuance of care, Re-evaluation by your physician Followup: [facility] - With: Terrance Randle MD - When: 2 - 3 days - Reason: Worsening of condition, Recheck today's complaints, Continuance of care Discharge Instructions: - Discharge Summary Sheet [facility] - Crutch Use, Adult, [id number] [facility] - Cast or Splint Care, Adult, [id number] [facility] - Ankle Fracture, [id number] [facility] Forms: - Medication Reconciliation Form [facility] - Thank You Letter [facility] - Antibiotic Education [facility] - Prescription Opioid Use [facility] Prescriptions: - Tylenol-Codeine #3 300 mg-30 mg Oral - take 2 tablet by ORAL route every 6 hours As needed; 30 tablet; Refills: 0, mh7 Product Selection Permitted Signatures: Dispatcher [employer] EDJb Arambula RN RN ll1 Alfie Brady MD MD mh7 Harika Javed tw5 Corrections: (The following items were deleted from the chart) 20:23 20:22 Details of fall: The patient fell from an upright position, while walking, and [facility] struck [facility] 20:31 20:31 Musculoskeletal/extremity: [place] [id number]
[2021-05-24] MEDS ORDERED: HYDROCODONE/APAP 5/325 MG TAB ONE (21:35)
[2021-05-24 22:45] VITALS: TEMP 97.5
[2021-05-24 22:46] VITALS: BP 117/74
[2021-05-24 22:47] VITALS: O2SAT 97
== END 2021-05-24 21:44 | disposition home or self-care (01) ==
LOC: ER 17:32
PROC: 2W3RX1Z Immobilization of Left Lower Leg using Splint (ICD-10-PCS; principal; 2021-05-24)
DX: S82.832A Other fracture of upper and lower end of left fibula, initial encounter for closed fracture (principal); W19.XXXA Unspecified fall, initial encounter
CPT/HCPCS: 96372; 99284

== ENCOUNTER 2023-01-21 12:52 | Emergency (ER) | payer OTHER ==
[2023-01-21] MEDS ORDERED: ETOMIDATE 20 MG/10 ML VIAL IV ONE (12:53)
[2023-01-21] MEDS ORDERED: ROCURONIUM 50 MG/5 ML VIAL IV ONE (12:53)
--- OUTSIDE RECORDS SUMMARY | 2023-01-21 12:55 | XMS REPORT | Continuity of Care Document ---
:1980 Author Organization [facility] t Address [address] [place] [address] Care Team Providers Name Role Phone Leann Attending Clinician Unavailable Natalia Mathias Attending Clinician Unavailable Payers Payer Name Policy Type Policy Number Effective Date Expiration Date Grover Burgos [id number] 2021 [facility] 00:00:00 [facility] Community Plan [facility] Problems Condition Condition Condition Status Onset Resolution Last Treating Co mments Source Name Details Category Date Date Treatment Clinician Date Arthralgia Left ankle Problem Active C ommon of the pain [facility] ankle - [facility]I and/or foot [facility] [id number] Closed Problem Active Common nondisplac Spirit ed - [facility]I fracture St of lateral [facility] malleolus Medical of left Center fibula with routine healing, subsequent encounter [id number] Continuous Problem Active C ommon [id number] dependence Spirit on - [facility] cigarette [facility] [id number] PUD Problem Active Common (peptic Spirit ulcer - [facility] disease) [facility] Swelling Swelling Problem Active Commo n Spirit - [facility] [id number] Essential Problem Active Comm on hypertensi Spirit on - [facility] [id number] Cigarette Problem Active Comm on nicotine Spirit dependence - [facility] without complicati [facility] on [facility] [id number] Primary Problem Active Common insomnia Spirit - [facility] Hypertensi HTN Problem Active Commo n on (hypertens Spirit ion) - [facility] [id number] Sciatica Problem Active Commo n of right Spirit side - [facility]I [facility] COPD - COPD Problem Active Common Chronic (chronic Spirit obstructiv obstructiv - [facility] e e St pulmonary pulmonary [place] [facility] disease disease) [facility] [id number] Encounter Problem Active Com mon for Spirit management - [facility] and [facility] Medical depo-Prove Center ra Stroke Stroke Problem Active Common [facility] - [facility] [id number] Other Problem Active Common chronic Spirit pain - [facility] [id number] History of Problem Active Co mmon colon Spirit polyps - [facility] [id number] 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 Social History Social Habit Start Date Stop Date Quantity Comments Source History of Tobacco Current Smoker Co mmon [facility] - [facility] Use [facility] Sex Assigned At Com mon [facility] - [facility] Smoking Status Start Date Stop Date Source Current Smoker 2021-09-13 00:00:00 Common Spiri t - [facility] Medications Ordered Filled Start Stop Current Ordering Indication Dosage Frequency Signature Comments Components Source Medication Medication Date Date Medication? Clinician (SIG) Name Name Neomycin-Po Neomycin-Po 2020-05 No 4{drops TID Neomycin-P lymyxin-HC lymyxin-HC 05-14 _into_a olymyxin-H . 3. 00:00: ffected C 00 _ear} . Topiramate Topiramate 2020-05 No 1{table BID Topiramate 50 MG 50 MG 05-14 t} 50 MG 00:00: 00 Neomycin-Po Neomycin-Po 2020-05 No 4{drops TID lymyxin-HC lymyxin-HC 05-14 _into_a .. 00:00: ffected 00 _ear} Topiramate Topiramate 2020-05 No 1{table BID 50 MG 50 MG - t} 00:00: 00 Topiramate Topiramate 2020-05 No 1{table BID Topiramate 50 MG 50 MG - t} 50 MG 00:00: 00 Neomycin-Po Neomycin-Po 2020-05 No 4{drops TID Neomycin-P lymyxin-HC lymyxin-HC 1-11 _into_a olymyxin-H 3.513475-0 3.565086-8 00:00: ffected C 00 _ear} 3.5- Neomycin-Po Neomycin-Po 2020-05 No 4{drops TID Neomycin-P lymyxin-HC lymyxin-HC 1-11 _into_a olymyxin-H 3.563192-3 3.582875-5 00:00: ffected C 00 _ear} 3.5- Neomycin-Po Neomycin-Po 2020-05 No 4{drops TID Neomycin-P lymyxin-HC lymyxin-HC 1-11 _into_a olymyxin-H 3.514016-6 3.599225-0 00:00: ffected C 00 _ear} 3.5- Neomycin-Po Neomycin-Po 2020-05 No 4{drops TID Neomycin-P lymyxin-HC lymyxin-HC 1-11 _into_a olymyxin-H 3.596760-5 3.570881-6 00:00: ffected C 00 _ear} 3.5- Neomycin-Po Neomycin-Po 2020-05 No 4{drops TID Neomycin-P lymyxin-HC lymyxin-HC 1-11 _into_a olymyxin-H 3.518701-8 3.563400-3 00:00: ffected C 00 _ear} 3.5-- Neomycin-Po Neomycin-Po 2020-05 No 4{drops TID Neomycin-P lymyxin-HC lymyxin-HC 1-11 _into_a olymyxin-H 3.556247-2 3.555756-9 00:00: ffected C 00 _ear} 3.5-- Neomycin-Po Neomycin-Po 2020-05 No 4{drops TID Neomycin-P lymyxin-HC lymyxin-HC 1-11 _into_a olymyxin-H 3.538687-6 3.518923-5 00:00: ffected C 00 _ear} 3.5 Neomycin-Po Neomycin-Po 2020-05 No 4{drops TID Neomycin-P lymyxin-HC lymyxin-HC 1-11 _into_a olymyxin-H 3.514777-1 3.5 00:00: ffected C 00 _ear} 3.5 Neomycin-Po Neomycin-Po 2020-05 No 4{drops TID Neomycin-P lymyxin-HC lymyxin-HC 1-11 _into_a olymyxin-H 3.-1 3. 00:00: ffected C 00 _ear} 3. Neomycin-Po Neomycin-Po 2020-05 No 4{drops TID Neomycin-P lymyxin-HC lymyxin-HC 1-11 _into_a olymyxin-H 3.-1 3. 00:00: ffected C 00 _ear} 3. Topiramate Topiramate 2020-05 No 1{table BID Topiramate 50 MG 50 MG 1-11 t} 50 MG 00:00: 00 Neomycin-Po Neomycin-Po 2020-05 No 4{drops TID Neomycin-P lymyxin-HC lymyxin-HC 1-11 _into_a olymyxin-H 3.573637-4 3. 00:00: ffected C 00 _ear} 3. [employer] Operations Manager Dep[employer]-Studio Operations Manager No 150mg Common a a 6-15 Spirit (Medroxypro (Medroxypro 00:00: - CHI gesterone gesterone ) ) [facility] Depo-Studio Operations Manager Dep[employer]-Studio Operations Manager No 150mg Common a a 6-15 Spirit (Medroxypro (Medroxypro 00:00: - CHI gesterone gesterone ) ac) [facility] Dep[employer]-Studio Operations Manager [employer] Operations Manager No 150mg Common a a 6-15 Spirit (Medroxypro (Medroxypro 00:00: - CHI gesterone gesterone ) ac) [facility] [employer] Operations Manager [employer] Operations Manager No 150mg Common a a 6-15 Spirit (Medroxypro (Medroxypro 00:00: - CHI gesterone gesterone ) ac) [facility] Dep[employer]Studio Operations Manager Dep[employer]-Studio Operations Manager No 150mg Common a a 6-15 Spirit (Medroxypro (Medroxypro 00:00: - CHI gesterone gesterone ) ac) [facility] Dep[employer]-Studio Operations Manager Dep[employer]-Studio Operations Manager No 150mg Common a a 6-15 Spirit (Medroxypro (Medroxypro 00:00: - CHI gesterone gesterone ) ) [facility] Dep[employer]Studio Operations Manager Dep[employer] Operations Manager No 150mg Common a a 6-15 Spirit (Medroxypro (Medroxypro 00:00: - CHI gesterone gesterone ) ) [facility] Albuterol Albuterol No 2{puffs Albuterol Sulfate HFA Sulfate HFA 1-21 } Sulfate 108 (90 108 (90 00:00: HFA 108 Base) Base) 00 (90 Base) MCG/ACT MCG/ACT MCG/ACT Albuterol Albuterol No 2{puffs Sulfate HFA Sulfate HFA 1-21 } 108 (90 108 (90 00:00: Base) Base) 00 MCG/ACT MCG/ACT Albuterol Albuterol No 2{puffs Albuterol Sulfate HFA Sulfate HFA 1-21 } Sulfate 108 (90 108 (90 00:00: HFA 108 Base) Base) 00 (90 Base) MCG/ACT MCG/ACT MCG/ACT Albuterol Albuterol No 2{puffs Albuterol Sulfate HFA Sulfate HFA 1-21 } Sulfate 108 (90 108 (90 00:00: HFA 108 Base) Base) 00 (90 Base) MCG/ACT MCG/ACT MCG/ACT Albuterol Albuterol No 2{puffs Albuterol Sulfate HFA Sulfate HFA 1-21 } Sulfate 108 (90 108 (90 00:00: HFA 108 Base) Base) 00 (90 Base) MCG/ACT MCG/ACT MCG/ACT Albuterol Albuterol No 2{puffs Albuterol Sulfate HFA Sulfate HFA 1-21 } Sulfate 108 (90 108 (90 00:00: HFA 108 Base) Base) 00 (90 Base) MCG/ACT MCG/ACT MCG/ACT Albuterol Albuterol No 2{puffs Albuterol Sulfate HFA Sulfate HFA 1-21 } Sulfate 108 (90 108 (90 00:00: HFA 108 Base) Base) 00 (90 Base) MCG/ACT MCG/ACT MCG/ACT Albuterol Albuterol No 2{puffs Albuterol Sulfate HFA Sulfate HFA 1-21 } Sulfate 108 (90 108 (90 00:00: HFA 108 Base) Base) 00 (90 Base) MCG/ACT MCG/ACT MCG/ACT Albuterol Albuterol No 2{puffs Albuterol Sulfate HFA Sulfate HFA 1-21 } Sulfate 108 (90 108 (90 00:00: HFA 108 Base) Base) 00 (90 Base) MCG/ACT MCG/ACT MCG/ACT [employer] Operations Manager Dep[employer]-Studio Operations Manager 2019-0 No 150mg Common a a 9-15 Spirit (Medroxypro (Medroxypro 00:00: - CHI gesterone gesterone ) ) [facility] Dep[employer]-Studio Operations Manager Dep[employer]-Studio Operations Manager 2019-0 No 150mg Common a a 9-15 Spirit (Medroxypro (Medroxypro 00:00: - [facility]I gesterone gesterone ) ) [facility] Dep[employer]-Studio Operations Manager Dep[employer]-Studio Operations Manager 2019-0 No 150mg Common a a 9-15 Spirit (Medroxypro (Medroxypro 00:00: - [facility]I gesterone gesterone St ac) ) [facility] Dep[employer]-Studio Operations Manager Dep[employer]-Studio Operations Manager 2019-0 No 150mg Common a a 9-15 Spirit (Medroxypro (Medroxypro 00:00: - [facility]I gesterone gesterone [address] ) ) [facility] Dep[employer]-Studio Operations Manager Dep[employer]-Studio Operations Manager 2020-0 No 150mg Common a a 9-15 Spirit (Medroxypro (Medroxypro 00:00: - [facility]I gesterone gesterone [address] [facility] ) ac) [facility] Dep[employer]-Studio Operations Manager Depo-Studio Operations Manager 2020-0 No 150mg Common a a 9-15 Spirit (Medroxypro (Medroxypro 00:00: - [facility] gesterone gesterone [facility] ) ac) [facility] Dep[employer]-Studio Operations Manager Depo-Studio Operations Manager 2020-0 No 150mg Common a a 9-15 Spirit (Medroxypro (Medroxypro 00:00: - [facility] gesterone gesterone St ) ) [facility] Dep[employer]-Studio Operations Manager Depo-Studio Operations Manager 2020-0 2020- No Na Mathias 1 ml Common a a 01-16- Spirit 00:00: 00:00 - [facility]I 00 :00 [facility] Lisinopril Lisinopril Yes Na Mathias 1 tablet Common [facility] Topamax Topamax Yes Na Mathias 2 tablet Co mmon [facility] Amlodipine Amlodipine Yes Na Mathias 1 tablet Common Besylate Besylate [facility] Gabapentin Gabapentin Yes Na Mathias 1 tablet Common [facility] Losartan Losartan No Losartan Potassium Potassium Potassium 50 MG 50 MG 50 MG Topamax 100 Topamax 100 No 2{table QD Topamax MG MG t} 100 MG Lisinopril Lisinopril No 1{table QD Lisinopril 40 MG 40 MG t} 40 MG SEROquel SEROquel No 1{table QD SEROquel 100 MG 100 MG t_at_be 100 MG dtime} hydroCHLORO hydroCHLORO No hydroCHLOR thiazide 25 thiazide 25 Othiazide MG MG 25 MG Gabapentin Gabapentin No Gabapentin 600 MG 600 MG 600 MG amLODIPine amLODIPine No 1{table QD amLODIPine Besylate 10 Besylate 10 t} Besylate MG MG 10 MG Topamax 100 Topamax 100 No 2{table QD MG MG t} Lisinopril Lisinopril No 1{table QD 40 MG 40 MG t} Gabapentin Gabapentin No 600 MG 600 MG Losartan Losartan No Potassium Potassium 50 MG 50 MG QUEtiapine QUEtiapine No Fumarate Fumarate 100 MG 100 MG hydroCHLORO hydroCHLORO No thiazide 25 thiazide 25 MG MG amLODIPine amLODIPine No 1{table QD Besylate 10 Besylate 10 t} MG MG amLODIPine amLODIPine No 1{table QD amLODIPine Besylate 10 Besylate 10 t} Besylate MG MG 10 MG Gabapentin Gabapentin No Gabapentin 600 MG 600 MG 600 MG Lisinopril Lisinopril No 1{table QD Lisinopril 40 MG 40 MG t} 40 MG QUEtiapine QUEtiapine No QUEtiapine Fumarate Fumarate Fumarate 100 MG 100 MG 100 MG hydroCHLORO hydroCHLORO No hydroCHLOR thiazide 25 thiazide 25 Othiazide MG MG 25 MG Topamax 100 Topamax 100 No 2{table QD Topamax MG MG t} 100 MG Losartan Losartan No Losartan Potassium Potassium Potassium 50 MG 50 MG 50 MG hydroCHLORO hydroCHLORO No hydroCHLOR thiazide 25 thiazide 25 Othiazide MG MG 25 MG QUEtiapine QUEtiapine No QUEtiapine Fumarate Fumarate Fumarate 100 MG 100 MG 100 MG amLODIPine amLODIPine No 1{table QD amLODIPine Besylate 10 Besylate 10 t} Besylate MG MG 10 MG Topamax 100 Topamax 100 No 2{table QD Topamax MG MG t} 100 MG Gabapentin Gabapentin No Gabapentin 600 MG 600 MG 600 MG Topiramate Topiramate No Topiramate 50 MG 50 MG 50 MG Losartan Losartan No Losartan Potassium Potassium Potassium 50 MG 50 MG 50 MG Lisinopril Lisinopril No 1{table QD Lisinopril 40 MG 40 MG t} 40 MG hydroCHLORO hydroCHLORO No hydroCHLOR thiazide 25 thiazide 25 Othiazide MG MG 25 MG Losartan Losartan No Losartan Potassium Potassium Potassium 50 MG 50 MG 50 MG Lisinopril Lisinopril No 1{table QD Lisinopril 40 MG 40 MG t} 40 MG Topamax 100 Topamax 100 No 2{table QD Topamax MG MG t} 100 MG Gabapentin Gabapentin No Gabapentin 600 MG 600 MG 600 MG QUEtiapine QUEtiapine No QUEtiapine Fumarate Fumarate Fumarate 100 MG 100 MG 100 MG amLODIPine amLODIPine No 1{table QD amLODIPine Besylate 10 Besylate 10 t} Besylate MG MG 10 MG Topiramate Topiramate No Topiramate 50 MG 50 MG 50 MG hydroCHLORO hydroCHLORO No hydroCHLOR thiazide 25 thiazide 25 Othiazide MG MG 25 MG Losartan Losartan No Losartan Potassium Potassium Potassium 50 MG 50 MG 50 MG Lisinopril Lisinopril No 1{table QD Lisinopril 40 MG 40 MG t} 40 MG Topamax 100 Topamax 100 No 2{table QD Topamax MG MG t} 100 MG Gabapentin Gabapentin No Gabapentin 600 MG 600 MG 600 MG QUEtiapine QUEtiapine No QUEtiapine Fumarate Fumarate Fumarate 100 MG 100 MG 100 MG amLODIPine amLODIPine No 1{table QD amLODIPine Besylate 10 Besylate 10 t} Besylate MG MG 10 MG Topiramate Topiramate No Topiramate 50 MG 50 MG 50 MG hydroCHLORO hydroCHLORO No hydroCHLOR thiazide 25 thiazide 25 Othiazide MG MG 25 MG Losartan Losartan No Losartan Potassium Potassium Potassium 50 MG 50 MG 50 MG Lisinopril Lisinopril No 1{table QD Lisinopril 40 MG 40 MG t} 40 MG Topamax 100 Topamax 100 No 2{table QD Topamax MG MG t} 100 MG Gabapentin Gabapentin No Gabapentin 600 MG 600 MG 600 MG QUEtiapine QUEtiapine No QUEtiapine Fumarate Fumarate Fumarate 100 MG 100 MG 100 MG amLODIPine amLODIPine No 1{table QD amLODIPine Besylate 10 Besylate 10 t} Besylate MG MG 10 MG Topiramate Topiramate No Topiramate 50 MG 50 MG 50 MG hydroCHLORO hydroCHLORO No hydroCHLOR thiazide 25 thiazide 25 Othiazide MG MG 25 MG Losartan Losartan No Losartan Potassium Potassium Potassium 50 MG 50 MG 50 MG Lisinopril Lisinopril No 1{table QD Lisinopril 40 MG 40 MG t} 40 MG Topamax 100 Topamax 100 No 2{table QD Topamax MG MG t} 100 MG Topiramate Topiramate No Topiramate 50 MG 50 MG 50 MG QUEtiapine QUEtiapine No QUEtiapine Fumarate Fumarate Fumarate 100 MG 100 MG 100 MG amLODIPine amLODIPine No 1{table QD amLODIPine Besylate 10 Besylate 10 t} Besylate MG MG 10 MG Gabapentin Gabapentin No Gabapentin 600 MG 600 MG 600 MG Topiramate Topiramate No 1{table BID Topiramate 50 MG 50 MG t} 50 MG Symbicort Symbicort No 2{puffs BID Symbicort 160-4.5 160-4.5 } 160-4.5 MCG/ACT MCG/ACT MCG/ACT Gabapentin Gabapentin No Gabapentin 600 MG 600 MG 600 MG Lisinopril Lisinopril No 1{table QD Lisinopril 40 MG 40 MG t} 40 MG hydroCHLORO hydroCHLORO No hydroCHLOR thiazide 25 thiazide 25 Othiazide MG MG 25 MG amLODIPine amLODIPine No 1{table QD amLODIPine Besylate 10 Besylate 10 t} Besylate MG MG 10 MG Losartan Losartan No Losartan Potassium Potassium Potassium 50 MG 50 MG 50 MG Topiramate Topiramate No Topiramate 50 MG 50 MG 50 MG Albuterol Albuterol No 2{puffs Albuterol Sulfate HFA Sulfate HFA } Sulfate 108 (90 108 (90 HFA 108 Base) Base) (90 Base) MCG/ACT MCG/ACT MCG/ACT Topamax 100 Topamax 100 No 2{table QD Topamax MG MG t} 100 MG QUEtiapine QUEtiapine No QUEtiapine Fumarate Fumarate Fumarate 100 MG 100 MG 100 MG Topiramate Topiramate No 1{table BID Topiramate 50 MG 50 MG t} 50 MG Symbicort Symbicort No 2{puffs BID Symbicort 160-4.5 160-4.5 } 160-4.5 MCG/ACT MCG/ACT MCG/ACT Gabapentin Gabapentin No Gabapentin 600 MG 600 MG 600 MG Lisinopril Lisinopril No 1{table QD Lisinopril 40 MG 40 MG t} 40 MG hydroCHLORO hydroCHLORO No hydroCHLOR thiazide 25 thiazide 25 Othiazide MG MG 25 MG amLODIPine amLODIPine No 1{table QD amLODIPine Besylate 10 Besylate 10 t} Besylate MG MG 10 MG Losartan Losartan No Losartan Potassium Potassium Potassium 50 MG 50 MG 50 MG Topiramate Topiramate No Topiramate 50 MG 50 MG 50 MG Albuterol Albuterol No 2{puffs Albuterol Sulfate HFA Sulfate HFA } Sulfate 108 (90 108 (90 HFA 108 Base) Base) (90 Base) MCG/ACT MCG/ACT MCG/ACT Topamax 100 Topamax 100 No 2{table QD Topamax MG MG t} 100 MG QUEtiapine QUEtiapine No QUEtiapine Fumarate Fumarate Fumarate 100 MG 100 MG 100 MG Topiramate Topiramate No 1{table BID Topiramate 50 MG 50 MG t} 50 MG Symbicort Symbicort No 2{puffs BID Symbicort 160-4.5 160-4.5 } 160-4.5 MCG/ACT MCG/ACT MCG/ACT amLODIPine amLODIPine No 1{table QD amLODIPine Besylate 10 Besylate 10 t} Besylate MG MG 10 MG Gabapentin Gabapentin No 1{table TID Gabapentin 600 MG 600 MG t} 600 MG Losartan Losartan No Losartan Potassium Potassium Potassium 50 MG 50 MG 50 MG hydroCHLORO hydroCHLORO No hydroCHLOR thiazide 25 thiazide 25 Othiazide MG MG 25 MG Topiramate Topiramate No Topiramate 50 MG 50 MG 50 MG Albuterol Albuterol No 2{puffs Albuterol Sulfate HFA Sulfate HFA } Sulfate 108 (90 108 (90 HFA 108 Base) Base) (90 Base) MCG/ACT MCG/ACT MCG/ACT Topamax 100 Topamax 100 No 2{table QD Topamax MG MG t} 100 MG QUEtiapine QUEtiapine No 1{table QD QUEtiapine Fumarate Fumarate t_at_be Fumarate 100 MG 100 MG dtime} 100 MG Topiramate Topiramate No 1{table BID Topiramate 50 MG 50 MG t} 50 MG Symbicort Symbicort No 2{puffs BID Symbicort 160-4.5 160-4.5 } 160-4.5 MCG/ACT MCG/ACT MCG/ACT amLODIPine amLODIPine No 1{table QD amLODIPine Besylate 10 Besylate 10 t} Besylate MG MG 10 MG Gabapentin Gabapentin No 1{table TID Gabapentin 600 MG 600 MG t} 600 MG Losartan Losartan No Losartan Potassium Potassium Potassium 50 MG 50 MG 50 MG hydroCHLORO hydroCHLORO No hydroCHLOR thiazide 25 thiazide 25 Othiazide MG MG 25 MG Topiramate Topiramate No Topiramate 50 MG 50 MG 50 MG Albuterol Albuterol No 2{puffs Albuterol Sulfate HFA Sulfate HFA } Sulfate 108 (90 108 (90 HFA 108 Base) Base) (90 Base) MCG/ACT MCG/ACT MCG/ACT Topamax 100 Topamax 100 No 2{table QD Topamax MG MG t} 100 MG QUEtiapine QUEtiapine No 1{table QD QUEtiapine Fumarate Fumarate t_at_be Fumarate 100 MG 100 MG dtime} 100 MG Losartan Losartan No Losartan Potassium Potassium Potassium 50 MG 50 MG 50 MG Topamax 100 Topamax 100 No 2{table QD Topamax MG MG t} 100 MG Lisinopril Lisinopril No 1{table QD Lisinopril 40 MG 40 MG t} 40 MG amLODIPine amLODIPine No 1{table QD amLODIPine Besylate 10 Besylate 10 t} Besylate MG MG 10 MG SEROquel SEROquel No 1{table QD SEROquel 100 MG 100 MG t_at_be 100 MG dtime} Gabapentin Gabapentin No Gabapentin 600 MG 600 MG 600 MG hydroCHLORO hydroCHLORO No hydroCHLOR thiazide 25 thiazide 25 Othiazide MG MG 25 MG Vital Signs Vital Name Observation Time Observation Value Comments Source height 2021-09-13 11:20:00 69.00 [in_i] [facility] weight 2021-09-13 11:20:00 240.2 [lb_av] [facility] temperature 2021-09-13 11:20:00 97.8 [degF] [facility] bmi 2021-09-13 11:20:00 35.47 kg/m2 [facility] oximetry 2021-09-13 11:20:00 98 % [facility] respiratory rate 2021-09-13 11:20:00 18 /min Comm on [facility] blood pressure 2021-09-13 11:20:00 130 mm[Hg] [facility] - systolic [facility] blood pressure 2021-09-13 11:20:00 81 mm[Hg] [facility] - diastolic [facility] height 2021-07-03 14:15:00 69.00 [in_i] [facility] weight 2021-07-03 14:15:00 258 [lb_av] [facility] temperature 2021-07-03 14:15:00 98.0 [degF] [facility] bmi 2021-07-03 14:15:00 38.1 kg/m2 [facility] blood pressure 2021-07-03 14:15:00 136 mm[Hg] [facility] - systolic [facility] blood pressure 2021-07-03 14:15:00 84 mm[Hg] [facility] - diastolic [facility] height 2021-06-19 15:00:00 69.00 [in_i] Common S pirit - [facility] weight 2021-06-19 15:00:00 258 [lb_av] Common S pirit - [facility] bmi 2021-06-19 15:00:00 38.1 kg/m2 Common S pirit - [facility] blood pressure 2021-06-19 15:00:00 118 mm[Hg] [facility] - systolic [facility] blood pressure 2021-06-19 15:00:00 75 mm[Hg] [facility] - diastolic [facility] height 2021-06-04 13:00:00 69.00 [in_i] Common S pirit [facility] weight 2021-06-04 13:00:00 258 [lb_av] Common S pirit - [facility] bmi 2021-06-04 13:00:00 38.1 kg/m2 Common S pirit [facility] blood pressure 2021-06-04 13:00:00 110 mm[Hg] [facility] - systolic [facility] blood pressure 2021-06-04 13:00:00 72 mm[Hg] [facility] - diastolic [facility] height 2021-06-03 13:20:00 69.00 [in_i] Common S pirit - [facility] weight 2021-06-03 13:20:00 258.2 [lb_av] Common [facility] - [facility] bmi 2021-06-03 13:20:00 38.13 kg/m2 Common S pirit [facility] bmi 2021-03-14 13:00:00 38.13 kg/m2 Common S pirit [facility] oximetry 2021-03-14 13:00:00 96 % [facility] 2021-03-14 13:00:00 16 /min Comm on [facility] blood pressure 2021-03-14 13:00:00 109 mm[Hg] Common [facility] - systolic [facility] blood pressure 2021-03-14 13:00:00 64 mm[Hg] Common [facility] - diastolic [facility] height 2021-03-14 13:00:00 69.00 [in_i] [facility] 2021-03-14 13:00:00 258.2 [lb_av] Common [facility] temperature 2021-03-14 13:00:00 97.9 [degF] [facility] Procedures This patient has no known procedures. Encounters Start End Encounter Admission Attending Care Care Encounter Source Date/Time Date/Time Type Type Clinicians Facility Department ID 2022-10-08 Outpatient STLMLC STLMLC [id number] Common 13:45:00 [id number] [facility] 2022-09-30 Outpatient Leann, STLMLC STLMLC [id number] Common 15:36:00 [id number] [facility] 2022-06-18 Outpatient Leann, STLMLC STLMLC [id number] Common 13:59:01 [id number] [facility] 2021-09-13 Outpatient Mathias, Na STLMLC STLMLC [id number] Common 11:20:00 [facility] 2021-09-11 Outpatient Mathias, Na STLMLC STLMLC [id number] 2 Common 13:29:01 [facility] 2021-07-29 Outpatient Mathias, Na STLMLC STLMLC [id number] 2 Common 08:51:02 [facility] 2021-07-25 Outpatient Mathias, Na STLMLC STLMLC [id number] 2 Common 10:37:02 [facility] 2021-06-14 Outpatient Mathias, Na STLMLC STLMLC [id number] 2 Common 16:24:03 [facility] 2021-06-13 Outpatient Mathias, Na STLMLC STLMLC [id number] 2 Common 14:58:00 [facility] 2021-06-06 Outpatient Mathias, Na STLMLC STLMLC [id number] 2 Common 08:05:00 [facility] 2021-06-04 Outpatient Mathias, Na STLMLC STLMLC [id number] 2 Common 14:17:01 [facility] 2021-06-03 Outpatient Mathias, Na STLMLC STLMLC [id number] 2 Common 15:45:02 [facility] 2021-05-29 Outpatient Mathias, Na STLMLC STLMLC [id number] 2 Common 14:29:06 [facility] 2021-05-29 Outpatient Mathias, Na STLMLC STLMLC [id number] 2 Common 14:27:14 [facility] 2021-05-29 Outpatient Mathias, Na STLMLC STLMLC [id number] 2 Common 13:56:00 [facility] 2021-05-29 Outpatient Mathias, Na STLMLC STLMLC [id number] 2 Common 13:06:52 [id number] [facility] 2021-05-29 Outpatient Mathias, Na STLMLC STLMLC [id number] 2 Common 13:03:04 [id number] [facility] 2021-05-29 Outpatient Mathias, Na STLMLC STLMLC [id number] Common 13:02:25 [id number] [facility] 2021-05-29 Outpatient Mathias, Na STLMLC STLMLC [id number] 2 Common 12:55:55 [facility] 2021-05-29 Outpatient Mathias, Na STLMLC STLMLC [id number] 2 Common 12:26:37 [id number] [facility] 2021-05-29 Outpatient Mathais, Na STLMLC STLMLC [id number] 2 Common 12:23:42 [facility] 2021-05-29 Outpatient Mathias, Na STLMLC STLMLC [id number] 2 Common 12:23:37 [facility] 2021-05-29 Outpatient Mathias, Na STLMLC STLMLC [id number] 2 Common 12:10:33 [id number] [facility] 2021-05-29 Outpatient Mathias, Na STLMLC STLMLC [id number] 2 Common 12:06:38 [id number] [facility] 2021-05-29 Outpatient Mathias, Na STLMLC STLMLC [id number] 2 Common 12:05:32 [id number] [facility] 2021-05-29 Outpatient Mathias, Na STLMLC STLMLC [id number] 2 Common 12:02:25 [id number] [facility] 2021-05-29 Outpatient Mathias, Na STLMLC STLMLC [id number] 2 Common 12:01:15 [id number] [facility] 2021-05-29 Outpatient Mathias, Na STLMLC STLMLC [id number] 2 Common 11:43:31 [id number] [facility] 2023-01-15 2023-01-15 Outpatient [facility] [id number] Fredy 13:27:33 13:27:33 [id number] [place] 2022-11-28 2022-11-28 Outpatient [facility] [id number] Fredy 14:58:37 14:58:37 [id number] F [place] 2021-12-11 2021-12-11 (TEL) STLMLC STLMLC [id number] Co mmon 00:00:00 00:00:00 [facility] 2021-10-07 2021-10-07 (TEL) STLMLC STLMLC [id number] Co mmon 00:00:00 00:00:00 [facility] 2021-10-01 2021-10-01 (TEL) STLMLC STLMLC [id number] Co mmon 00:00:00 00:00:00 [facility] 2021-09-13 2021-09-13 OFFICE STLMLC STLMLC [id number] Co mmon 00:00:00 00:00:00 VISIT EST Spir it PT LEVEL [address] [place] [address] 2021-07-25 2021-07-25 (TEL) STLMLC STLMLC [id number] Co mmon 00:00:00 00:00:00 [facility] 2021-07-03 2021-07-03 OFFICE STLMLC STLMLC [id number] Co mmon 00:00:00 00:00:00 VISIT EST Spir it PT LEVEL 3 - [facility] 2021-06-19 2021-06-19 OFFICE STLMLC STLMLC [id number] Co mmon 00:00:00 00:00:00 VISIT EST Spir it PT LEVEL 3 - [facility] 2021-06-04 2021-06-04 CONSULT - STLMLC STLMLC [id number] Common 00:00:00 00:00:00 OFFICE, L3 [facility] 2021-06-03 2021-06-03 OL DIG E/M STLMLC STLMLC [id number] Common 00:00:00 00:00:00 SVC 21+ [facility] 2021-05-27 2021-05-27 (TEL) STLMLC STLMLC [id number] Co mmon 00:00:00 00:00:00 [facility] 2021-05-03 2021-05-03 (TEL) STLMLC STLMLC [id number] Co mmon 00:00:00 00:00:00 [facility] 2021-04-01 2021-04-01 (TEL) STLMLC STLMLC [id number] Co mmon 00:00:00 00:00:00 [facility] 2021-03-14 2021-03-14 OFFICE STLMLC STLMLC [id number] Co mmon 00:00:00 00:00:00 VISIT Spirit ESTAB PT - [facility] LEVEL 4 [facility] 2020-12-03 2020-12-03 Outpatient STLMLC STLMLC [id number] Common 00:00:00 00:00:00 [facility] 2020-10-16 2020-10-16 Outpatient STLMLC STLMLC [id number] Common 00:00:00 00:00:00 [facility] 2020-10-11 2020-10-11 Outpatient STLMLC STLMLC [id number] Common 00:00:00 00:00:00 [facility] 2020-09-13 2020-09-13 Outpatient STLMLC STLMLC [id number] Common 00:00:00 00:00:00 [facility] 2020-08-27 2020-08-27 Outpatient STLMLC STLMLC [id number] Common 00:00:00 00:00:00 [facility] 2020-08-07 2020-08-07 Outpatient STLMLC STLMLC [id number] Common 00:00:00 00:00:00 [facility] 2020-07-31 2020-07-31 Outpatient STLMLC STLMLC [id number] Common 00:00:00 00:00:00 [facility] 2020-05-24 2020-05-24 Outpatient STLMLC STLMLC [id number] Common 00:00:00 00:00:00 [facility] 2020-04-17 2020-04-17 Outpatient STLMLC STLMLC [id number] Common 00:00:00 00:00:00 [facility] 2020-03-21 2020-03-21 Outpatient STLMLC STLMLC [id number] Common 00:00:00 00:00:00 [facility] 2020-03-19 2020-03-19 Outpatient STLMLC STLMLC [id number] Common 00:00:00 00:00:00 [facility] 2020-01-25 2020-01-25 Outpatient STLMLC STLMLC [id number] Common 00:00:00 00:00:00 [facility] 2020-01-17 2020-01-17 [id number] Common 13:40:00 13:40:00 t Tixie ([employer] [address] [facility] 2020-01-16 2020-01-16 [facility] [id number] Common 10:47:00 10:47:00 t Tixie ([employer] [address] [facility] 2020-01-06 2020-01-06 Out[facility] [id number] Common 18:38:00 18:38:00 t Tixie ([employer] [address] [facility] 2020-01-06 2020-01-06 Outpatient Ricky Gotti [id number] Common 09:00:00 09:00:[address] [employer] [address] [facility] Results This patient has no known results.
[2023-01-21] MEDS ORDERED: LORazepam 2 MG/ML VIAL ONE (13:03)
[2023-01-21] MEDS ORDERED: RSI MEDICATION KIT IV ONE (13:09)
[2023-01-21] MEDS ORDERED: VECURONIUM 10 MG/VIAL IV ONE (13:10)
[2023-01-21] MEDS ORDERED: NA CHLORIDE 0.9% 1,000 ML ONE (13:13)
[2023-01-21] MEDS ORDERED: propofoL 1,000 MG/100 ML VIAL IV ONE ×4 (13:21→23:03)
[2023-01-21 13:35] LABS: Absolute Lymphocytes (CBC) 4.5 K/uL (0.7-4.9); Hematocrit 42.1 % (36.0-45.0); Lymphocytes % 26.5 % (15.3-44.8); MCV 105.1 fL (80-100); MPV 7.4 fL (7.6-11.3); Platelets 452 thou/uL (152-406); RBC Red Blood Cell Count 4.01 M/uL (3.86-4.86)
[2023-01-21 13:37] LABS: Specific Gravity 1.019 (1.005-1.030)
[2023-01-21 13:43] LABS: Specific Gravity 1.019 (1.005-1.030); Urine Bacteria 20-50 /HPF (<20); Urine Bilirubin NEGATIVE (Negative); Urine Blood Negative (Negative); Urine Clarity Turbid (Clear); Urine Color Light-Yellow (Yellow); Urine Glucose NEGATIVE (Negative); Urine Mucus Slight /HPF (None Seen); Urine Protein NEGATIVE (Negative); Urine RBC <5 /HPF (None Seen); Urine Urobilinogen Normal (Normal)
[2023-01-21 13:46] LABS: ALT/SGPT 43 U/L (13-56); AST/SGOT 34 U/L (15-37); Albumin 2.6 g/dL (3.4-5.0); Alkaline Phosphatase 112 U/L (45-117); BUN Blood Urea Nitrogen 10 mg/dL (7-18); Bicarbonate 20 mEq/L (21-32); Bilirubin Direct 0.1 mg/dL (0-0.2); Bilirubin Total 0.1 mg/dL (0.2-1.0); Creatine Phosphokinase 45 U/L (26-192); Glomerular Filtration Rate 91 ml/min (=/>90); Glucose Level 244 mg/dL (74-106); Sodium Level 133 mEq/L (136-145)
[2023-01-21 13:46] LABS: Barbiturates NEGATIVE (NEGATIVE); Benzodiazepines NEGATIVE (NEGATIVE); Cocaine NEGATIVE (NEGATIVE); METHAMPHETAM POSITIVE (NEGATIVE); Methadone NEGATIVE (NEGATIVE); Opiates NEGATIVE (NEGATIVE); Phencyclidine NEGATIVE (NEGATIVE); THC Cannibis POSITIVE (NEGATIVE)
[2023-01-21 13:49] LABS: Potassium 2.4 mEq/L (3.5-5.1)
[2023-01-21 13:52] LABS: Arterial Blood Carboxyhemoglob 4.4 % (0-1.5); Blood Gas Oxyhemoglobin 92.9 % (94-97); Blood O2 Saturation 98.7 % (92-98.5)
--- NOTE | 2023-01-21 14:09 | RAD REPORT ---
EXAM DESCRIPTION: CT - Head Brain Wo Cont - 01/21/2023 1:37 pm CLINICAL HISTORY: ams COMPARISON: Head Brain Wo Cont dated 07/31/2020; HEAD BRAIN W O CONTRAST dated 04/10/2015 TECHNIQUE: Noncontrast head CT images ad were obtained without IV contrast. Multiplanar reformats we re generated and reviewed. All CT scans are performed using dose optimization technique as appropriate and may include automated exposure control or mA/KV adjustment according to patient size. FINDINGS: No intracranial hemorrhage, mass, or edema. Midline structures are unremarkable. Normal ventricular caliber for age. Cruz-white matter differentiation is preserved, without evidence of acute infarct. No abnormal extra- axial fluid collections. Mastoid air cells and visualized portions of the paranasal sinuses are clear. No acute bony findings. IMPRESSION: No evidence of an acute intracranial process.
[2023-01-21] MEDS ORDERED: KCL 20 MEQ/100 mL IVPB 200 ML IV ONE (14:10)
[2023-01-21 14:17] LABS: Protime INR 0.83
--- NOTE | 2023-01-21 14:31 | RAD REPORT ---
[facility] CLINICAL HISTORY: intubation COMPARISON: Chest Single View dated 07/31/2020; Chest Pa And Lat (2 Views) dated 07/22/2017; CHEST PA AND LAT 2 VIEW dated 06/23/2011; ABDOMEN ACUTE SERIES dated 01/21/2008 TECHNIQUE: Portable AP view of the chest. FINDINGS: Endotracheal tube terminates 3.7 cm above the ellen. Enteric tube courses below the lower film margin. The lungs are clear although decreased inspiratory effort somewhat limits evaluation. No pneumothora x or effusion. The cardiomediastinal contours are unremarkable. IMPRESSION: Satisfactory placement of enteric tube. No acute cardiopulmonary process.
[2023-01-21] MEDS ORDERED: POTASSIUM 25 MEQ EFFERV TAB ONE (15:12)
--- NOTE | 2023-01-21 16:25 | RAD REPORT ---
EXAM DESCRIPTION: CT - Head angio - 01/21/2023 3:47 pm CLINICAL HISTORY: ams COMPARISON: Head Brain Wo Cont dated 01/21/2023; Head Brain Wo Cont dated 07/31/2020 TECHNIQUE: Axial CT angiography images of the head was performed with multiplanar and maximum intens ity projection reconstructions. Images performed following intravenous administration of 100mL Isovue 370. All CT scans are performed using dose optimization technique as appropriate and may include automated exposure control or mA/KV adjustment according to patient size. FINDINGS: No evidence of large vessel occlusion. No evidence of aneurysm or dissection flap is detec major. No flow-limiting stenosis or vascular malformation identified. Antegrade flow is seen in the vertebral arteries. The vertebral arteries are codominant. The visualized dural venous sinuses are grossly patent. IMPRESSION: No evidence of large vessel occlusion or flow-limiting stenosis.
--- NOTE | 2023-01-21 16:41 | RAD REPORT ---
EXAM DESCRIPTION: CT - Neck Angio - 01/21/2023 3:47 pm CLINICAL HISTORY: ams COMPARISON: No comparisons TECHNIQUE: Axial CT angiography images of the head was performed with multiplanar and maximum intens ity projection reconstructions. Images performed following intravenous administration of 100mL Isovue 370. All CT scans are performed using dose optimization technique as appropriate and may include automated exposure control or mA/KV adjustment according to patient size. Quantification of carotid stenosis, if any, is performed according to NASCET criteria. FINDINGS: A left aortic arch is identified with normal three vessel configuration of the great vesse ls. No significant flow abnormality is seen of the common carotid bilaterally. No significant stenosis is identified involving the cervical segments of both internal carotid arteri es. Normal flow is seen within both vertebral arteries. Endotracheal and oral enteric tube in place. Fluid opacification in the nasopharynx. IMPRESSION: No significant flow abnormality of the neck vessels is identified. CAROTID STENOSIS REFERENCE USING NASCET CRITERIA: % ICA stenosis = (1 - narrowest ICA diameter/diameter of distal cervical ICA) x 100. Mild - <50% stenosis. Moderate - 50-69% stenosis. Severe - 70-94% stenosis. Near occlusion - 95-99% stenosis. Occluded - 100% stenosis.
--- NOTE | 2023-01-21 16:51 | EDPHYS ---
Physician Documentation [facility] Name: Meredith Gillette Age: 42 yrs Sex: Female : 1980 Arrival Date: 01/21/2023 Time: 12:52 Bed 3 Private MD: ED Physician Rogelio Bassett HPI: 01/21 14:14 This 42 yrs old Female presents to ER via EMS with complaints of Overdose. rt 14:14 History limited due to patient with altered mental status. Patient was reportedly rt consuming large with alcohol, took approximate 20 ibuprofens and an unknown amount of BuSpar. Patient was talking to the PD, became unresponsive prior to EMSs room arrival. No further history could be obtained. Symptoms are severe in severity, no other aggravating relieving factors reported. ACTIVITIES AIDE: 13:17 LMP N/A - Hysterectomy, Not ko1 Historical: - Allergies: 13:17 No Known Allergies; ko1 - PMHx: 13:17 COPD; Depression; gatric ulcer; Hypertension; Migraines; ko1 - PSHx: 13:17 section; Tonsillectomy; ko1 - Immunization history:: Adult Immunizations unknown. - Social history:: Smoking status: Patient reports the use of cigarette tobacco products, unknown amount. - Unable to obtain history due to: altered mental status. ROS: 14:14 Unable to obtain ROS due to altered mental status, rt Exam: 14:14 Eyes: Pinpoint pupils, left gaze deviation, no corneal reflexes present. rt 14:14 Respiratory: Sonorous respirations noted, not protecting airway, 14:14 Neuro: GCS 3, 15:08 Head/Face: Normocephalic, atraumatic. Chest/axilla: Normal chest wall appearance and rt motion. Nontender with no deformity. No lesions are appreciated. Cardiovascular: Regular rate and rhythm with a normal S1 and S2. No gallops, murmurs, or rubs. Normal PMI, no JVD. No pulse deficits. Abdomen/GI: Soft, non-tender, with normal bowel sounds. No distension or tympany. No guarding or rebound. No evidence of tenderness throughout. Skin: Warm, dry with normal turgor. Normal color with no rashes, no lesions, and no evidence of cellulitis. 15:08 Constitutional: The patient appears Unresponsive, in acute distress 15:08 ECG was reviewed by the Attending Physician. Vital Signs: 13:00 BP 87 / 59; Pulse 100; Resp 18 S; Pulse Ox 96% on R/A; aa5 13:05 BP 98 / 75; Pulse 109; Resp 16 A; Pulse Ox 99% on ETT vent; aa5 13:09 BP 111 / 74; Pulse 103; Resp 16 A; Pulse Ox 100% on ETT vent; aa5 13:12 Weight 91.63 kg (M); aa5 13:14 BP 114 / 77; Pulse 99; Resp 16 S; Pulse Ox 100% on ETT vent; aa5 13:25 BP 119 / 79; Pulse 97; Resp 16 S; Pulse Ox 100% on ETT vent; aa5 13:55 BP 124 / 88; Pulse 104; Resp 16 A; Pulse Ox 100% on ETT vent; aa5 14:30 BP 128 / 86; Pulse 104; Resp 16; Pulse Ox 100% ; FiO2 60 %; ko1 14:45 BP 126 / 92; Pulse 101; Resp 18; Pulse Ox 99% on ETT vent; FiO2 60 %; ko1 15:00 BP 128 / 100; Pulse 100; Resp 18; Pulse Ox 99% ; FiO2 60 %; ko1 15:15 BP 131 / 98; Pulse 102; Resp 16; Pulse Ox 100% ; FiO2 60 %; ko1 15:30 BP 123 / 97; Pulse 94; Resp 16; Pulse Ox 99% ; FiO2 60 %; ko1 16:00 BP 128 / 104; Pulse 100; Resp 16; Pulse Ox 100% ; FiO2 60 %; ko1 16:30 BP 126 / 102; Pulse 93; Resp 16; Pulse Ox 100% ; ko1 18:54 BP 128 / 99; Pulse 106; Resp 18; Pulse Ox 100% on ETT vent; FiO2 40 %; ko1 19:15 BP 131 / 105; Pulse 112; Resp 22; Pulse Ox 100% on ETT vent; FiO2 40 %; kd3 19:30 BP 131 / 108; Pulse 106; Resp 17; Pulse Ox 100% ; FiO2 40 %; kd3 19:45 BP 118 / 92; Pulse 103; Resp 18; Pulse Ox 100% ; FiO2 40 %; kd3 20:00 BP 122 / 88; Pulse 111; Resp 19; Pulse Ox 100% ; FiO2 40 %; kd3 20:15 BP 118 / 86; Pulse 112; Resp 19; Pulse Ox 100% ; FiO2 40 %; kd3 20:30 BP 109 / 82; Pulse 111; Resp 18; Pulse Ox 100% ; kd3 21:00 BP 115 / 82; Pulse 112; Resp 18; Pulse Ox 100% on ETT vent; FiO2 35 %; kd3 21:30 BP 123 / 96; Pulse 104; Resp 18; Pulse Ox 100% ; FiO2 35 %; kd3 22:00 BP 124 / 106; Pulse 108; Resp 19; Pulse Ox 100% ; FiO2 35 %; kd3 22:30 BP 123 / 90; Pulse 106; Resp 18; Pulse Ox 100% ; FiO2 35 %; kd3 23:00 BP 118 / 88; Pulse 107; Resp 18; Pulse Ox 100% ; FiO2 35 %; kd3 23:30 BP 118 / 86; Pulse 105; Resp 18; Pulse Ox 100% ; FiO2 35 %; kd3 23:56 BP 134 / 107; Pulse 112; Resp 20; Pulse Ox 100% ; FiO2 35 %; kd3 Stefan Coma Score: 23:56 Eye Response: none(1). Modifying Factors: Intubated. Modifying Factors: Medicated. kd3 Motor Response: none(1). Verbal Response: none(1). Total: 3. MDM: 13:06 Patient medically screened. rt 17:25 Differential diagnosis: Intentional ingestion of BuSpar, seizure due to BuSpar, rt ibuprofen overdose, hypokalemia. Data reviewed: vital signs, nurses notes, lab test result(s), EKG, radiologic studies. Consideration of Admission/Observation Patient requires transfer for higher level care. 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 who accepts patient in transfer.. I considered the following discharge prescriptions or medication management in the emergency department Medications were administered in the Emergency Department. See MAR. Independent interpretation of the following test(s) in the Emergency Department CT Scan: My interpretation is No hemorrhage syndrome interpretation CT scan images. Care significantly affected by the following chronic conditions: Chronic Obstructive Pulmonary Disease. Response to treatment: the patient's symptoms have markedly improved after treatment. 01/21 13:08 Order name: Acetaminophen; Complete Time: 13:51 rt 01/21 13:08 Order name: Basic Metabolic Panel; Complete Time: 13:51 rt 01/21 13:08 Order name: CBC with Diff; Complete Time: 13:51 rt 01/21 13:08 Order name: ETOH Level; Complete Time: 13:51 rt 01/21 13:08 Order name: Hepatic Function; Complete Time: 13:51 rt 01/21 13:08 Order name: PT-INR; Complete Time: 14:52 rt 01/21 13:08 Order name: Test, Urine; Complete Time: 13:51 rt 01/21 13:08 Order name: Ptt, Activated; Complete Time: 14:52 rt 01/21 13:08 Order name: Salicylate; Complete Time: 14:52 rt 01/21 13:08 Order name: Urinalysis w/ reflexes; Complete Time: 13:51 rt 01/21 13:08 Order name: Urine Drug Screen; Complete Time: 13:51 rt 01/21 13:08 Order name: CPK; Complete Time: 13:51 rt 01/21 13:39 Order name: ABG; Complete Time: 15:38 rt 01/21 13:08 Order name: CT Head Brain wo Cont; Complete Time: 14:52 rt 01/21 13:19 Order name: Chest Single View XRAY; Complete Time: 14:52 rt 01/21 15:16 Order name: CT Head Angio; Complete Time: 18:55 rt 01/21 15:16 Order name: CT Neck Angio; Complete Time: 18:55 rt 01/21 15:35 Order name: ARTERIAL BLOOD GAS EDMS 01/21 13:08 Order name: EKG; Complete Time: 13:09 rt 01/21 13:08 Order name: EKG - Nurse/Tech; Complete Time: 14:07 rt 01/21 13:08 Order name: IV Saline Lock; Complete Time: 13:16 rt 01/21 13:08 Order name: Labs collected and sent; Complete Time: 13:22 rt EC:08 Rate is 110 beats/min. Rhythm is regular, Sinus tachycardia with No ectopy. QRS [place] is rt Normal. IA interval is normal. QRS interval is normal. QT interval is normal. No Q waves. Interpreted by me. Administered Medications: 12:55 Drug: Ativan IVP 2 mg IVP once {Note: VO received prior to administration. .} Route: aa5 IVP; Site: left hand; 23:59 Follow up: Response: No adverse reaction kd3 12:55 Drug: NS 0.9% IV 1000 ml IV at 1000 ml once; VO at 1255 Route: IV; Rate: 1000 ml; Site: aa right antecubital; 13:54 Follow up: IV Status: Completed infusion; IV Intake: 1000ml aa5 13:02 Drug: Etomidate IVP 20 mg IVP once {Note: VO received prior to administration. .} aa5 Route: IVP; Site: right antecubital; 23:59 Follow up: Response: No adverse reaction kd3 13:03 Drug: Rocuronium IVP 50 mg IVP once {Note: VO received prior to administration. .} aa5 Route: IVP; Site: right antecubital; 23:58 Follow up: Response: No adverse reaction kd3 13:16 Drug: Propofol IV 5 mcg/kg/min IV at calculated rate See Administration Instructions; aa5 Standard concentration 1000 mg / 100 mL; Recommended max rate 50 mcg/kg/min; Titrate 2 mcg/kg/min every 5 minutes to achieve goal (see titration policy); Goal parameter RASS score 0 to -2 Route: IV; Rate: calculated rate; Site: left hand; 13:30 Follow up: Rate change 7 mcg/kg/min ko1 13:35 Follow up: Response: No adverse reaction; RASS: Restless (+1); Rate change 9 mcg/kg/min ko1 13:50 Follow up: Response: No adverse reaction; RASS: Restless (+1); Rate change 11 mcg/kg/minko1 14:00 Follow up: Response: No adverse reaction; RASS: Agitated (+2); Rate change 13 mcg/kg/minko1 14:15 Follow up: Response: RASS: Drowsy (-1); Rate change 15 mcg/kg/min ko1 14:25 Follow up: Response: RASS: Restless (+1); Rate change 17 mcg/kg/min ko1 14:30 Follow up: Response: No adverse reaction; RASS: Restless (+1); Rate change 19 mcg/kg/minko1 14:35 Follow up: Response: RASS: Agitated (+2); Rate change 21 mcg/kg/min ko1 14:40 Follow up: Response: RASS: Restless (+1); Rate change 23 mcg/kg/min ko1 14:50 Follow up: Response: RASS: Agitated (+2); Rate change 25 mcg/kg/min ko1 14:55 Follow up: Response: No adverse reaction; RASS: Agitated (+2); Rate change 27 mcg/kg/minko1 15:00 Follow up: Response: RASS: Restless (+1); Rate change 29 mcg/kg/min ko1 15:05 Follow up: Response: RASS: Agitated (+2); Rate change 31 mcg/kg/min ko1 15:10 Follow up: Response: RASS: Restless (+1); Rate change 33 mcg/kg/min ko1 15:15 Follow up: Response: RASS: Restless (+1); Rate change 35 mcg/kg/min ko1 15:25 Follow up: Response: RASS: Restless (+1); Rate change 37 mcg/kg/min ko1 15:30 Follow up: Response: RASS: Restless (+1); Rate change 39 mcg/kg/min ko1 15:40 Follow up: Response: RASS: Restless (+1); Rate change 41 mcg/kg/min ko1 15:45 Follow up: Response: RASS: Agitated (+2); Rate change 43 mcg/kg/min ko1 15:50 Follow up: Response: RASS: Agitated (+2); Rate change 45 mcg/kg/min ko1 15:55 Follow up: Response: RASS: Restless (+1); Rate change 47 mcg/kg/min ko1 16:00 Follow up: Response: No adverse reaction; RASS: Restless (+1); Rate change 49 mcg/kg/minko1 16:08 Follow up: Response: RASS: Restless (+1); Rate change 50 mcg/kg/min ko1 23:58 Follow up: IV Status: Infusion continued upon transfer kd3 13:18 CANCELLED (Physician Discretion): [id number] mg IVP once aa5 14:07 Drug: Potassium Chloride IV 40 mEq IV at calculated rate once; administer over 4 hours ko1 Route: IV; Rate: calculated rate; Site: left hand; 23:58 Follow up: IV Status: Completed infusion; IV Intake: 100ml kd3 15:09 Drug: Potassium Chloride PO Liquid 40 mEq PO once; via ng tube Route: PO; ko1 23:58 Follow up: Response: No adverse reaction kd3 19:25 Drug: Midazolam IVP or IV 0.01 mg/kg/h IV at calculated rate See Administration rv Instructions; (Standard concentration: 100 mg / 100 mL NS); Recommended max rate 0.1 mg/kg/hr; Titrate 0.01 mg/kg/hr as often as every 30 minutes to achieve goal (see titration policy); Goal parameter RASS 0 to -2 Route: IV; Rate: calculated rate; Site: left hand; 23:58 Follow up: IV Status: Infusion continued upon transfer kd3 Disposition Summary: 01/21/23 16:51 Transfer Ordered Notes: Reason: Higher level of care rt Condition: Critical rt Problem: new rt Symptoms: have improved rt Transfer Location: [facility](01/21/23 22:39) [facility] Accepting Physician: icu [facility](01/21/23 23:59) kd3 Diagnosis - Overdose of buspirone with seizure rt - Alcohol intoxication rt - Hypokalemia rt - Overdose of ibuprofen rt - Acute respiratory failure rt Forms: - Medication Reconciliation Form rt - SBAR form rt Critical care time excluding procedures: 17:25 Critical care time: Bedside Care: 40 minutes, Consultation: 10 minutes. Total time: 50 rt minutes Signatures: Dispatcher [employer] EDRogelio Piña MD MD cha Calderon, Audri RN RN mo5 Deandre Vu, RN Ting Day RN RN kd3 Jen Holloway, MARTIN RN Des Leggett MD MD rt Corrections: (The following items were deleted from the chart) 13:18 13:08 Rocuronium IVP 100 mg IVP once ordered. rt aa5 22:39 16:51 Dr. Friedman rt chang 22:39 16:51 [facility] rt [facility] 23:59 22:[address] [facility] chang kd3
--- NOTE | 2023-01-21 16:51 | ER ---
Nurse's Notes [facility] Name: Meredith Gillette Age: 42 yrs Sex: Female : 1980 Arrival Date: 01/21/2023 Time: 12:52 Bed 3 Private MD: Diagnosis: Overdose of buspirone with seizure;Alcohol intoxication;Hypokalemia;Overdose of ibuprofen;Acute respiratory failure Presentation: 01/21 12:52 Chief complaint: EMS states: family called stating patient had taken a bunch of buspar, ko1 ibuprofen, and drank alcohol, she was awake until just prior to EMS arrival when she became unresponsive. She has been unresponsive since then but so far she is maintaining her own airway. Coronavirus screen: At this time, the client does not indicate any symptoms associated with coronavirus-19. Initial Sepsis Screen: Does the patient meet any 2 criteria? No. Patient's initial sepsis screen is negative. Does the patient have a suspected source of infection? No. Patient's initial sepsis screen is negative. Risk Assessment: Do you want to hurt yourself or someone else? Unable to obtain. Onset of symptoms was January 21, 2023. Care prior to arrival: IV initiated. 20 GA, in the left hand, Oxygen administered. via a non-rebreather mask. Care prior to arrival: Glucose check: . Activity prior to arrival: loss of consciousness, unresponsive. 12:52 Method Of Arrival: EMS: [facility] ko1 12:52 Acuity: MIL 1 ko1 12:52 Ebola Screen: No symptoms or risks identified at this time. ko1 Triage Assessment: 13:17 General: Appears obese, Behavior is unresponsive. Pain: Unable to use pain scale. ko1 Patient is unresponsive. 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 - Social history:: Smoking status: Patient reports the use of cigarette tobacco products, unknown amount. - Unable to obtain history due to: altered mental status. Screenin:55 [facility] ED Fall Risk Assessment (Adult) History of falling in the last 3 months, ko1 including since admission No falls in past 3 months (0 pts) Confusion or Disorientation Yes (5 pts) Intoxicated or Sedated Yes (3 pts) Impaired Gait No (0 pts) Mobility Assist Device Used No (0 pt) Altered Elimination No (0 pt) Score/Fall Risk Level 3 or more points = High Risk Oriented to surroundings, Maintained a safe environment, Educated pt \T\ family on fall prevention, incl call for assistance when getting out of bed, Assessed \T\ reinforced patient's understanding of fall precautions, Provided non-skid footwear, Hourly rounding (assess needs \T\ fall precautionary measures) done, Used ambulatory aids as needed (educated on \T\ assisted with), Used gait belt as appropriate Implemented a Fall Risk Plan of Care, Remained with patient while ambulating, Utilized family, sitter, or virtual glass lathe operator as indicated. Abuse screen: Denies threats or abuse. Denies injuries from another. Nutritional screening: No deficits noted. Tuberculosis screening: No symptoms or risk factors identified. Assessment: 12:55 Neuro: Level of Consciousness is unresponsive. Cardiovascular: No deficits noted. ko1 Respiratory: Airway is patent Trachea midline Respiratory effort is even, shallow, Respiratory pattern is regular. GI: No deficits noted. : No deficits noted. EENT: No deficits noted. Derm: No deficits noted. Musculoskeletal: No deficits noted. 13:29 Reassessment: Contacted poison control, recommendations are as follow: obtain toxic aa5 work-up, risk for nausea/vomiting and abd pain, risk for metabolic acidosis and baseline ABG is recommended, monitor until back to baseline, Case # [id number]. was notified. . Vital Signs: 13:00 BP 87 / 59; Pulse 100; Resp 18 S; Pulse Ox 96% on R/A; aa5 13:05 BP 98 / 75; Pulse 109; Resp 16 A; Pulse Ox 99% on ETT vent; aa5 13:09 BP 111 / 74; Pulse 103; Resp 16 A; Pulse Ox 100% on ETT vent; aa5 13:12 Weight 91.63 kg (M); aa5 13:14 BP 114 / 77; Pulse 99; Resp 16 S; Pulse Ox 100% on ETT vent; aa5 13:25 BP 119 / 79; Pulse 97; Resp 16 S; Pulse Ox 100% on ETT vent; aa5 13:55 BP 124 / 88; Pulse 104; Resp 16 A; Pulse Ox 100% on ETT vent; aa5 14:30 BP 128 / 86; Pulse 104; Resp 16; Pulse Ox 100% ; FiO2 60 %; ko1 14:45 BP 126 / 92; Pulse 101; Resp 18; Pulse Ox 99% on ETT vent; FiO2 60 %; ko1 15:00 BP 128 / 100; Pulse 100; Resp 18; Pulse Ox 99% ; FiO2 60 %; ko1 15:15 BP 131 / 98; Pulse 102; Resp 16; Pulse Ox 100% ; FiO2 60 %; ko1 15:30 BP 123 / 97; Pulse 94; Resp 16; Pulse Ox 99% ; FiO2 60 %; ko1 16:00 BP 128 / 104; Pulse 100; Resp 16; Pulse Ox 100% ; FiO2 60 %; ko1 16:30 BP 126 / 102; Pulse 93; Resp 16; Pulse Ox 100% ; ko1 18:54 BP 128 / 99; Pulse 106; Resp 18; Pulse Ox 100% on ETT vent; FiO2 40 %; ko1 19:15 BP 131 / 105; Pulse 112; Resp 22; Pulse Ox 100% on ETT vent; FiO2 40 %; kd3 19:30 BP 131 / 108; Pulse 106; Resp 17; Pulse Ox 100% ; FiO2 40 %; kd3 19:45 BP 118 / 92; Pulse 103; Resp 18; Pulse Ox 100% ; FiO2 40 %; kd3 20:00 BP 122 / 88; Pulse 111; Resp 19; Pulse Ox 100% ; FiO2 40 %; kd3 20:15 BP 118 / 86; Pulse 112; Resp 19; Pulse Ox 100% ; FiO2 40 %; kd3 20:30 BP 109 / 82; Pulse 111; Resp 18; Pulse Ox 100% ; kd3 21:00 BP 115 / 82; Pulse 112; Resp 18; Pulse Ox 100% on ETT vent; FiO2 35 %; kd3 21:30 BP 123 / 96; Pulse 104; Resp 18; Pulse Ox 100% ; FiO2 35 %; kd3 22:00 BP 124 / 106; Pulse 108; Resp 19; Pulse Ox 100% ; FiO2 35 %; kd3 22:30 BP 123 / 90; Pulse 106; Resp 18; Pulse Ox 100% ; FiO2 35 %; kd3 23:00 BP 118 / 88; Pulse 107; Resp 18; Pulse Ox 100% ; FiO2 35 %; kd3 23:30 BP 118 / 86; Pulse 105; Resp 18; Pulse Ox 100% ; FiO2 35 %; kd3 23:56 BP 134 / 107; Pulse 112; Resp 20; Pulse Ox 100% ; FiO2 35 %; kd3 Rescue Coma Score: 23:56 Eye Response: none(1). Modifying Factors: Intubated. Modifying Factors: Medicated. kd3 Motor Response: none(1). Verbal Response: none(1). Total: 3. ED Course: 12:52 Arm band placed on. aa5 12:55 Patient has correct armband on for positive identification. Placed in gown. Bed in low ko1 position. Call light in reach. Side rails up X2. Seizure precautions initiated. Provided Education on:. Client placed on continuous cardiac and pulse oximetry monitoring. NIBP monitoring applied. 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 Door closed. Noise minimized. Warm blanket given. 12:55 Maintain EMS IV. Dressing intact. Good blood return noted. Site clean \T\ dry. Gauge \T\ ko 1 site: 20g left hand. 12:55 Inserted saline lock: 20 gauge in right antecubital area, using aseptic technique. IV aa5 inserted by Chelsea Arora RN. 13:05 Patient arrived in ED. bd 13:05 Assisted provider with intubation using 7.5 mm ETT via oral route. ET tube secured at aa5 24cm at the teeth. Set up intubation tray. Intubated by Des Rhodes MD Placement verified by CO2 detector w/ + color change, auscultating bilateral breath sounds. 13:06 Des Rhodes MD is Attending Physician. rt 13:17 Triage completed. ko1 13:17 Acetaminophen Sent. cp4 13:17 Basic Metabolic Panel Sent. cp4 13:17 CBC with Diff Sent. cp4 13:17 ETOH Level Sent. cp4 13:17 Hepatic Function Sent. cp4 13:17 PT-INR Sent. cp4 13:17 Ptt, Activated Sent. cp4 13:17 Salicylate Sent. cp4 13:38 CT Head Brain wo Cont In Process Unspecified. EDMS 13:52 Jen Holloway, RN is Primary Nurse. ko1 13:56 Rodriguez cath inserted, using sterile technique, 18 Fr., by mo, balloon inflated, to cp4 gravity drainage, urine specimen collected. 16 FR OG tube right mouth. 13:59 initiated transfer to [facility]. bd 14:11 Chest Single View XRAY In Process Unspecified. EDMS 15:49 CT Head Angio In Process Unspecified. EDMS 15:49 CT Neck Angio In Process Unspecified. EDMS 21:10 Called for update on bed placement, Luna said they are still waiting for an ICU bed rv1 to open but that Cost Coordinator is working on it. 22:35 Attending Physician role handed off by Des Rhodes MD chang 22:35 Rgoelio Bassett MD is Attending Physician. chang 22:36 Elzbieta from [facility] called back and declined pt due to capacity. rv1 22:38 Initiated transfer with Nellie at [facility]. rv1 22:[address] Scruggs to [facility] [place] 8B Rm 830. rv1 23:57 Patient transferred, IV remains in place. kd3 Administered Medications: 12:55 Drug: Ativan IVP 2 mg IVP once {Note: VO received prior to administration. .} Route: aa5 IVP; Site: left hand; 23:59 Follow up: Response: No adverse reaction kd3 12:55 Drug: NS 0.9% IV 1000 ml IV at 1000 ml once; VO at 1255 Route: IV; Rate: 1000 ml; Site: aa5 right antecubital; 13:54 Follow up: IV Status: Completed infusion; IV Intake: 1000ml aa5 13:02 Drug: Etomidate IVP 20 mg IVP once {Note: VO received prior to administration. .} aa5 Route: IVP; Site: right antecubital; 23:59 Follow up: Response: No adverse reaction kd3 13:03 Drug: Rocuronium IVP 50 mg IVP once {Note: VO received prior to administration. .} aa5 Route: IVP; Site: right antecubital; 23:58 Follow up: Response: No adverse reaction kd3 13:16 Drug: Propofol IV 5 mcg/kg/min IV at calculated rate See Administration Instructions; aa5 Standard concentration 1000 mg / 100 mL; Recommended max rate 50 mcg/kg/min; Titrate 2 mcg/kg/min every 5 minutes to achieve goal (see titration policy); Goal parameter RASS score 0 to -2 Route: IV; Rate: calculated rate; Site: left hand; 13:30 Follow up: Rate change 7 mcg/kg/min ko1 13:35 Follow up: Response: No adverse reaction; RASS: Restless (+1); Rate change 9 mcg/kg/min ko1 13:50 Follow up: Response: No adverse reaction; RASS: Restless (+1); Rate change 11 mcg/kg/minko1 14:00 Follow up: Response: No adverse reaction; RASS: Agitated (+2); Rate change 13 mcg/kg/minko1 14:15 Follow up: Response: RASS: Drowsy (-1); Rate change 15 mcg/kg/min ko1 14:25 Follow up: Response: RASS: Restless (+1); Rate change 17 mcg/kg/min ko1 14:30 Follow up: Response: No adverse reaction; RASS: Restless (+1); Rate change 19 mcg/kg/minko1 14:35 Follow up: Response: RASS: Agitated (+2); Rate change 21 mcg/kg/min ko1 14:40 Follow up: Response: RASS: Restless (+1); Rate change 23 mcg/kg/min ko1 14:50 Follow up: Response: RASS: Agitated (+2); Rate change 25 mcg/kg/min ko1 14:55 Follow up: Response: No adverse reaction; RASS: Agitated (+2); Rate change 27 mcg/kg/minko1 15:00 Follow up: Response: RASS: Restless (+1); Rate change 29 mcg/kg/min ko1 15:05 Follow up: Response: RASS: Agitated (+2); Rate change 31 mcg/kg/min ko1 15:10 Follow up: Response: RASS: Restless (+1); Rate change 33 mcg/kg/min ko1 15:15 Follow up: Response: RASS: Restless (+1); Rate change 35 mcg/kg/min ko1 15:25 Follow up: Response: RASS: Restless (+1); Rate change 37 mcg/kg/min ko1 15:30 Follow up: Response: RASS: Restless (+1); Rate change 39 mcg/kg/min ko1 15:40 Follow up: Response: RASS: Restless (+1); Rate change 41 mcg/kg/min ko1 15:45 Follow up: Response: RASS: Agitated (+2); Rate change 43 mcg/kg/min ko1 15:50 Follow up: Response: RASS: Agitated (+2); Rate change 45 mcg/kg/min ko1 15:55 Follow up: Response: RASS: Restless (+1); Rate change 47 mcg/kg/min ko1 16:00 Follow up: Response: No adverse reaction; RASS: Restless (+1); Rate change 49 mcg/kg/minko1 16:08 Follow up: Response: RASS: Restless (+1); Rate change 50 mcg/kg/min ko1 23:58 Follow up: IV Status: Infusion continued upon transfer kd3 13:18 CANCELLED (Physician Discretion): [id number] mg IVP once aa5 14:07 Drug: Potassium Chloride IV 40 mEq IV at calculated rate once; administer over 4 hours ko1 Route: IV; Rate: calculated rate; Site: left hand; 23:58 Follow up: IV Status: Completed infusion; IV Intake: 100ml kd3 15:09 Drug: Potassium Chloride PO Liquid 40 mEq PO once; via ng tube Route: PO; ko1 23:58 Follow up: Response: No adverse reaction kd3 19:25 Drug: Midazolam IVP or IV 0.01 mg/kg/h IV at calculated rate See Administration rv Instructions; (Standard concentration: 100 mg / 100 mL NS); Recommended max rate 0.1 mg/kg/hr; Titrate 0.01 mg/kg/hr as often as every 30 minutes to achieve goal (see titration policy); Goal parameter RASS 0 to -2 Route: IV; Rate: calculated rate; Site: left hand; 23:58 Follow up: IV Status: Infusion continued upon transfer kd3 Medication: 16:00 VIS not applicable for this client. ko1 Intake: 13:54 IV: 1000ml; Total: 1000ml. aa5 18:38 IV: 1300ml (IV Fluid); Tubes: 180ml (NGT); Total: 2480ml. ko1 23:58 IV: 100ml; Total: 2580ml. kd3 Output: 18:38 Urine: 1700ml (Rodriguez); Total: 1700ml. ko1 Outcome: 16:51 ER care complete, transfer ordered by . rt 23:57 Transferred by ground EMS to [facility], Transfer form kd3 completed. X-rays sent w/ patient. 23:57 Condition: stable 23:57 Instructed on the need for transfer, 23:59 Patient left the ED. kd3 Signatures: Dispatcher [employer] EDMS Chitra Freitas Corey, MD MD cha Calderon, Audri, RN RN aa5 Deandre Vu RN RN rv Ting Mckoy RN RN kd3 Jen Holloway RN RN ko1 Des Rhodes MD MD rt Melanie Mojica rv1 Chelsea Stewart cp4 Corrections: (The following items were deleted from the chart) 13:17 12:55 Ativan IVP 2 mg IVP in left hand aa5 aa5 13:00 Chief complaint: EMS states: family called stating patient had taken a bunch of ko1 buspar and drank alcohol, she was awake until just prior to EMS arrival when she became unresponsive. She has been unresponsive since then but so far she is maintaining her own airway. ko1 13:00 Coronavirus screen: At this time, the client does not indicate any symptoms ko1 associated with coronavirus-19. ko1 13:00 Ebola Screen: No symptoms or risks identified at this time. ko1 ko1 13: Initial Sepsis Screen: Does the patient meet any 2 criteria? No. Patient's ko1 initial sepsis screen is negative. Does the patient have a suspected source of infection? No. Patient's initial sepsis screen is negative. ko1 13: Risk Assessment: Do you want to hurt yourself or someone else? Unable to obtain ko1 ko1 13:00 Onset of symptoms was January 21, 2023 ko1 ko1 13:00 Care prior to arrival: IV initiated. 20 GA, in the left hand, Oxygen ko1 administered. via a non-rebreather mask, ko1 13:00 Care prior to arrival: Glucose check: ko1 ko1 13:00 Activity prior to arrival: loss of consciousness, unresponsive, ko1 ko1 13:00 Method Of Arrival: EMS: [facility] ko ko1 13:00 Acuity: MIL 1 ko1 ko1 14:53 14:50 Response: No adverse reaction; RASS: Restless (+1); Rate change 11 mcg/kg/min ko1 ko1 15:09 14:58 Response: No adverse reaction; RASS: Restless (+1); Rate change 19 mcg/kg/min ko1 ko1 15:15 15:05 Response: RASS: Restless (+1); Rate change 33 mcg/kg/min ko1 ko1 19:08 12:52 Chief complaint: EMS states: family called stating patient had taken a bunch of aa5 buspar and drank alcohol, she was awake until just prior to EMS arrival when she became unresponsive. She has been unresponsive since then but so far she is maintaining her own airway. ko1 19:41 19:25 Midazolam IVP or IV 3 mg IV at calculated rate in left hand rv rv
[2023-01-21] MEDS ORDERED: MIDAZOLAM HCL IN 0.9 % NACL/PF 100 MG/100 ML BAG IVPB ONE (19:27)
[2023-01-22 00:22] VITALS: O2SAT 100
[2023-01-22 03:21] VITALS: BP 134/107
== END 2023-01-21 23:59 | disposition short-term general hospital (02) ==
LOC: ER 12:52
DX: T43.591A Poisoning by other antipsychotics and neuroleptics, accidental (unintentional), initial encounter (principal); R56.9 Unspecified convulsions; T39.311A Poisoning by propionic acid derivatives, accidental (unintentional), initial encounter; J96.00 Acute respiratory failure, unspecified whether with hypoxia or hypercapnia; F10.129 Alcohol abuse with intoxication, unspecified; E87.6 Hypokalemia; Z72.0 Tobacco use
CPT/HCPCS: 85025; 81001; 80048; 36415; 82550; 81025; 85610; 80076; 85730; 80307; 70450; 70496; 70498; 71045; 82805 ×2; 80143; 80179; 82077; 94002; Q9967; J2704 ×4; J3480; J2250; J7030; 94003; 94760

== ENCOUNTER 2023-03-14 14:00 | Emergency (ER) | payer OTHER ==
--- OUTSIDE RECORDS SUMMARY | 2023-03-14 14:15 | XMS REPORT | Continuity of Care Document ---
:1980 Author Organization [facility] t Address [address] [place] [address]. [address] [place] [address] Care Team Providers Name Role Phone DK RAYO Primary Care Physician Unavailable Rachna Noriega Attending Clinician Unavailable Natalia Mathias Attending Clinician Unavailable [email or web address]_S Attending Clinician Unavailable Luz Marina Bhatia RN Attending Clinician YOSEPH ISAAC Attending Clinician Unavailable Kael Falcon MD, Waldemar Reyes Attending Clinician [phone] Abdi Archibald MD Attending Clinician [phone] Yoseph Isaac MD Attending Clinician [email or web address]_Kadiyala_S Admitting Clinician Unavailable ABDI ARCHIBALD Admitting Clinician Unavailable Abdi Archibald MD Admitting Clinician [phone] Payers Payer Name Policy Type Policy Number Effective Date Expiration Date Grover Urbina [id number] 2021 [facility] 00:00:00 [facility] Community Plan [facility] Problems Condition Condition Condition Status Onset Resolution Last Treating Co mments Source Name Details Category Date Date Treatment Clinician Date Seizures Seizures Disease Active Unive rs 9-21 ity of 00:00: [place] 00 Medical Branch Arthralgia Left ankle Problem Active C ommon of the pain Spirit ankle - [facility] and/or foot [facility] [id number] Closed Problem Active Common nondisplac Spirit ed - [facility]I fracture St of lateral [facility] malleolus Medical of left Center fibula with routine healing, subsequent encounter [id number] Continuous Problem Active C ommon [address] dependence Spirit on - [facility] cigarette smoking [facility] [id number] PUD Problem Active Common (peptic Spirit ulcer - [facility] disease) [facility] Swelling Swelling Problem Active Commo n Spirit - [facility] [id number] Essential Problem Active Comm on hypertensi Spirit on - [facility] [id number] Cigarette Problem Active Comm on nicotine Spirit dependence - [facility] without complicati [facility] [id number] Primary Problem Active Common insomnia Spirit - [facility] Hypertensi HTN Problem Active Commo n on (hypertens Spirit ion) - [facility] [id number] Sciatica Problem Active Commo n of right Spirit side - [facility] COPD - COPD Problem Active Common Chronic (chronic Spirit obstructiv obstructiv - [facility] e e pulmonary pulmonary [place] [facility] disease disease) [facility] [id number] Encounter Problem Active Com mon for Spirit management - [facility] and [facility] depo-Prove Center ra Stroke Stroke Problem Active Common Spirit - [facility] [id number] Other Problem Active Common chronic Spirit pain - [facility] [id number] History of Problem Active Co mmon colon Spirit polyps - [facility] [id number] 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[facility] migraine aura [facility] without Medical cerebral Center infarction and without status migrainosu s Allergies, Adverse Reactions, Alerts Allergy Allergy Status Severity Reaction(s) Onset Inactive Treating Comm ents Source Name Type Date Date Clinician NO KNOWN Drug Active Univers ALLERGIE Class ity of S [facility] Social History Social Habit Start Date Stop Date Quantity Comments Source Sexual orientation Univer sity [facility] History of tobacco Passive smoker Un iversity of use [facility] Tobacco use and 2023-01-26 2023-01-26 Smokeless Universit y of exposure 00:00:00 00:00:00 tobacco non-user [facility] History of Social 2023-01-26 2023-01-26 Univers ity of function 00:00:00 00:00:00 [facility] Tobacco Comment 2023-01-26 2023-01-26 1 1/5 pack a day Uni versity of 00:00:00 00:00:00 [facility] Sex Assigned At [birth year] Universit y of 00:00:00 00:00:00 [facility] Smoking Status Start Date Stop Date Source Smokes tobacco daily 2023-01-26 00:00:00 [facility] Ordered Filled Start Stop Current Ordering Indication Dosage Frequency Signature Comments Components Source Medication Medication Date Date Medication? Clinician (SIG) Name Name risperiDONE 2022- Yes [id number] .5mg Take 1 Univers 0.5 mg 01-29- tablet by ity of tablet 00:00: 05:59 mouth in [place] 00 :[address] [facility] Branch and 1 tablet in the evening. Do all this for 90 days. risperiDONE 2022- Yes [id number] .5mg Take 1 Univers 0.5 mg 01-29- tablet by ity of tablet 00:00: 05:59 mouth in [place] 00 :[address] [facility] Branch and 1 tablet in the evening. Do all this for 90 days. barium 2022- No [id number] 30mL 30 mL, Univ ers sulfate-NO 01-28 Oral, ity of CHARGE- 19:15: 19:05 ONCE, 1 [place] (VARIBAR 00 :00 dose, On Medical NECTOR) 40 Wed Branch % (w/v) 01/28/23 at oral 1415, suspension Routine 30 mL barium 2022- No [id number] 30g 30 g, Unive rs sulfate 01-28 Oral, ity of (VARIBAR 19:00: 19:00 ONCE, 1 [place] THIN 00 :00 dose, On Medical LIQUID) [address] [facility] Branch % (w/w) 01/28/23 at oral powder 1400, 30 g Routine KCL 20 2022-2022- No 40meq 40 mEq, Univer s mEq/15 mL 01-28 Enteral, ity o f solution 40 14:30: 14:24 [place]CE[place] 1 [place] mEq 00 :00 dose, On [facility] 01/28/23 at 0930, Routine thiamine 0 Yes 100mg 100 mg, Unive rs (VITAMIN 01-28 Enteral, ity of B1) tablet 14:00: DAILY, [place] 100 mg 00 First dose Medical (after Branch last modificati on) on Thu01/28/23 at 0900, Until Discontinu ed, Routine foLIC acid Yes 1mg 1 mg, Univer s (FOLATE) 01-28 Enteral, ity of tablet 1 mg 14:00: DAILY, [place] 00 First dose Medical (after Branch last modificati on) on [facility] 01/28/23 at 0900, Until Discontinu ed, Routine risperiDONE 0 Yes .5mg 0.5 mg, Uni vers (RISPERDAL) 01-28 Enteral, ity of tablet 0.5 01:00: BID, First [place] mg 00 dose on [facility] 01/27/23 at 2000, Until Discontinu ed, Routine ramelteon 0 Yes 8mg 8 mg, Univers (ROZEREM) 01-27 Oral, QHS, ity of tablet 8 mg 08:15: First dose [place] 00 on [facility] 01/27/23 at Branch 0315, Until Discontinu ed, Routine midazolam 0 2022- No 1mg 1 mg, IV Uni vers (VERSED) 01-27 Push, ity of injection 1 03:00: 02:36 ONCE, 1 [place] mg 00 :00 dose, On [facility] 01/26/23 at 2200, Routine morpHINE (2 2022-0 2022- No 2mg 2 mg, Slow Univers mg/mL) 01-27 IV Push, ity of injection 2 03:00: 02:37 ONCE, 1 [place] mg 00 :00 dose, On [facility] 01/26/23 at 2200, Routine thiamine 2022- No 100mg IV Univers (VITAMIN 01-26 Piggyback, ity of B1) 100 mg 18:00: 15:00 DAILY, 5 [place] in NaCl 00 :48 doses, Medical 0.9% (NS) First dose Bran ch piggyback on Thu01/26/23 at 1300, Last dose on Thu01/30/23 at 0900, 50 mL pantoprazol Yes 40mg 40 mg, Univ ers e 01-26 Slow IV ity of (PROTONIX) 15:45: Push, [place] injection 00 Q24H, Medical 40 mg First dose Branch on Thu01/26/23 at 1045, Until Discontinu ed acetaminoph Yes 325mg 325 mg, Un alber en 01-26 Oral, ity of (TYLENOL) 14:37: Q4HPRN, [place] 160 mg/5 mL 04 Starting Medi lynda oral liquid on [facility] Branch 325 mg 01/26/23 at 0937, Until Discontinu ed, Routine, Pain (scale 1-3) dexMEDEtomi 2022- No .2ug/kg 0.2-1.5 Univers dine 400 01-25 09-25 /h mcg/kg/hr ity o f mcg in 0.9 15:54: 22:01 ?92 kg [place] % NaCl 100 38 :14 (4.6-34.5 Medi lynda mL mL/hr), IV Branch (PRECEDEX) Infusion, RTU IV TITRATE, infusion Sedation-R ASS score (-1 to -2), Starting on [place] 01/25/23 at 1054
In itiate infusion at 0.2 mcg/kg/hr and titrate by 0.1 mcg/kg/hr every 30 minutes to goal sedation score. Maximum dose = 1.5 mcg/kg/hr. If goal not maintained at maximum allowed dose, contact prescriber .
polyethylen Yes 17g 17 g, Unive rs e glycol 01-25 Enteral, ity of 3350 powder 14:00: DAILY, [place] 17 g 00 First dose Medical on [place] Branch 01/25/23 at 0900, Until Discontinu ed, Routine QUEtiapine 2022- No 50mg 50 mg, Univ ers (SEROQUEL) 01-25 Oral, BID, it y of tablet 50 13:45: 00:24 First dose [place] mg 00 :37 (after Medical last Branch modificati on) on 01/25/23 at 0845, Until Discontinu ed, Routine sennosides Yes 8.6mg 8.6 mg, Uni vers (SENOKOT) 01-25 Enteral, ity of tablet 8.6 03:00: BID, First [place] mg 00 dose on Medical Sat Branch 01/24/23 at 2200, Until Discontinu ed, Routine dexMEDEtomi 2022- No .2ug/kg 0.2-1.5 Univers dine 200 01-2424 /h mcg/kg/hr ity o f mcg in 0.9 18:42: 15:54 ?92 kg [place] % NaCl 50 34 :49 (4.6-34.5 Medic al mL mL/hr), IV Branch (PRECEDEX) Infusion, RTU IV TITRATE, infusion Sedation-R ASS score (-1 to -2), Starting on 01/24/23 at 1342
In itiate infusion at 0.2 mcg/kg/hr and titrate by 0.1 mcg/kg/hr every 30 minutes to goal sedation score. Maximum dose = 1.5 mcg/kg/hr. If goal not maintained at maximum allowed dose, contact prescriber .
propofoL IV 2022- No 5ug/kg/ 5-50 Un alber infusion 01-2425 min mcg/kg/min ity of 17:42: 05:31 ?92 kg [place] 58 :07 (2.76-27.6 Medical mL/hr), IV Branch Infusion, TITRATE, Sedation-R ASS score (-1 to -2), Starting on 01/24/23 at 1242
In itiate infusion at 5 mcg/kg/min and titrate by 5 mcg/kg/min every 30 seconds to 10 minutes to goal sedation score. Maximum dose = 50 mcg/kg/min . If goal not maintained at maximum allowed dose, contact prescriber . &nbs p;Tubing and unused portions of vials should be discarded after 12 hours.
lactated 2022- No 1000mL at 125 Univ ers ringers IV 01-23-22 mL/hr, ity of infusion 13:00: 22:59 1,000 mL, Zach as 1,000 mL 00 :00 IV Medical Infusion, Branch CONTINUOUS , Starting on Thu01/23/23 at 0800, Until Thu01/23/23 at 1759, Routine enoxaparin Yes 40mg 40 mg, Unive rs (LOVENOX) 01-22 Subcutaneo ity of injection 22:00: [place], DAILY, [place] 40 mg 00 First dose Medical (after Branch last modificati on) on Y[place] 01/22/23 at 1700, Until Discontinu ed, Routine propofoL IV 2022- No 5ug/kg/ 5-50 Un alber infusion 01-22 min mcg/kg/min ity of 21:21: 17:43 ?92 kg [place] 52 :29 (2.76-27.6 Medical mL/hr), IV Branch Infusion, TITRATE, Sedation-R ASS score (-2 to -3), Starting on Yin 01/22/23 at 1621
In itiate infusion at 5 mcg/kg/min and titrate by 5 mcg/kg/min every 30 seconds to 10 minutes to goal sedation score. Maximum dose = 50 mcg/kg/min . If goal not maintained at maximum allowed dose, contact prescriber . &nbs p;Tubing and unused portions of vials should be discarded after 12 hours.
midazolam 2022- No 1mg/h 1-10 mg/hr Univers (VERSED) 01-2224 (1-10 ity of STD 50mg in 21:21: 05:09 mL/hr), IV [place] NaCl 0.9% 39 :06 Infusion, Medic al (NS) 50 mL TITRATE, Branc h infusion Sedation-R RTU ASS score (-2 to -3), Starting on Yin 01/22/23 at 1621
In itiate infusion at 1 mg/hr and titrate by 1 mg/hr every 3 minutes to 10 minutes to goal sedation score. Maximum dose = 10 mg/hr.&nbs p; If goal not maintained at maximum allowed dose, contact prescriber .
D5W 0.45% 2022- No 1000mL at 125 Uni vers NaCl 01-22 mL/hr, ity of (1/2NS) IV 16:00: 07:29 1,000 mL, [place] infusion 00 :25 IV Medical 1,000 mL Infusion, Branch CONTINUOUS , Starting on Yin 01/22/23 at 1100, Until Thu01/23/23 at 0229, Routine pantoprazol 2022- No 40mg 40 mg, Uni vers e 01-22 Slow IV ity of (PROTONIX) 14:00: 14:34 Push, [place] injection 00 :34 DAILY, Medical 40 mg First dose Branch on Yin 01/22/23 at 0900, Until Discontinu ed potassium 2022- No 20meq 20 mEq, IV Univers chloride in 01-22 Piggyback, i ty of water (KCL) 09:00: 13:42 Q2H, 2 [place] 20 mEq/100 00 :00 doses, Medical mL RTU IVPB First dose Br anch 20 mEq on Yin 01/22/23 at 0400, Last dose on Yin 01/22/23 at 0600, 100 mL propofoL IV No 5ug/kg/ 5-50 Un alber infusion 01-22 min mcg/kg/min ity of 08:51: 21:22 ?92 kg [place] 54 :21 (2.76-27.6 Medical mL/hr), IV Branch Infusion, TITRATE, Sedation-R ASS score (0 to -1), Starting on Yin 01/22/23 at 0351
In itiate infusion at 5 mcg/kg/min and titrate by 5 mcg/kg/min every 30 seconds to 10 minutes to goal sedation score. Maximum dose = 50 mcg/kg/min . If goal not maintained at maximum allowed dose, contact prescriber . &nbs p;Tubing and unused portions of vials should be discarded after 12 hours.
fentaNYL PF 2022- No 25ug/h 25-200 U nivers (SUBLIMAZE) 9-21 09-25 mcg/hr ity o f STD 2,500 07:36: 05:31 (2.5-20 [place] mcg in NaCl 18 :07 mL/hr), IV Me dical 0.9% (NS) Infusion, Branc h 250 mL TITRATE, infusion CPOT/Pain RTU Scale Goals Determined by Provider, Starting on Yin 01/22/23 at 0236
In itiate infusion at 25 mcg/hr. Titrate by 25 mcg/hr every 1 minute to 15 minutes to identified goal pain and/or sedation scores. Maximum dose = 200 mcg/hr. If goal not maintained at maximum allowed dose, contact prescriber .
midazolam 2022- No 1mg/h 1-10 mg/hr Univers (VERSED) 01-22 (1-10 ity of STD 50mg in 07:35: 21:22 mL/hr), IV [place] NaCl 0.9% 48 :21 Infusion, Medic al (NS) 50 mL TITRATE, Branc h infusion Sedation-R RTU ASS score (0 to -1), Starting on Yin 01/22/23 at 0235
In itiate infusion at 1 mg/hr and titrate by 1 mg/hr every 3 minutes to 10 minutes to goal sedation score. Maximum dose = 10 mg/hr.&nbs p; If goal not maintained at maximum allowed dose, contact prescriber .
FENTanyl PF 2022- No 50ug 50 mcg, Un alber (SUBLIMAZE 01-22 Slow IV ity o f (PF)) 07:30: 06:35 Push, [place] injection 00 :00 ONCE, 1 Medical 50 mcg dose, On Branch Y[place] 01/22/23 at 0230, Routine midazolam 2022- No 2mg 2 mg, IV Uni vers (VERSED) 01-22 Push, ity of injection 2 07:30: 06:52 ONCE, 1 [place] mg 00 :00 dose, On Medical [place] Branch 01/22/23 at 0230, Routine Neomycin-Po Neomycin-Po 2020-05 No 4{drops TID Neomycin-P lymyxin-HC lymyxin-HC 1-11 _into_a olymyxin-H 3.5-43689-7 3.5-02681-5 00:00: ffected C 00 _ear} 3.- Topiramate Topiramate 2020-05 No 1{table BID Topiramate 50 MG 50 MG 05-14 t} 50 MG 00:00: 00 Neomycin-Po Neomycin-Po 2020-05 No 4{drops TID lymyxin-HC lymyxin-HC 1-11 _into_a 3.-1 3. 00:00: ffected 00 _ear} Topiramate Topiramate 2020-05 No 1{table BID 50 MG 50 MG 05-14 t} 00:00: 00 Topiramate Topiramate 2020-05 No 1{table BID Topiramate 50 MG 50 MG 05-14 t} 50 MG 00:00: 00 Neomycin-Po Neomycin-Po 2020-05 No 4{drops TID Neomycin-P lymyxin-HC lymyxin-HC 1-11 _into_a olymyxin-H 3.-1 3.-1 00:00: ffected C 00 _ear} 3.5 Neomycin-Po Neomycin-Po 2020-05 No 4{drops TID Neomycin-P lymyxin-HC lymyxin-HC 1-11 _into_a olymyxin-H 3.-1 3.-1 00:00: ffected C 00 _ear} 3. Neomycin-Po Neomycin-Po 2020-05 No 4{drops TID Neomycin-P lymyxin-HC lymyxin-HC 1-11 _into_a olymyxin-H 3.562809-0 3.543532-2 00:00: ffected C 00 _ear} 3.5- Neomycin-Po Neomycin-Po 2020-05 No 4{drops TID Neomycin-P lymyxin-HC lymyxin-HC 1-11 _into_a olymyxin-H 3.592015-8 3.596843-6 00:00: ffected C 00 _ear} 3.5-- Neomycin-Po Neomycin-Po 2020-05 No 4{drops TID Neomycin-P lymyxin-HC lymyxin-HC 1-11 _into_a olymyxin-H 3.532409-6 3.544002-3 00:00: ffected C 00 _ear} 3.5-- Neomycin-Po Neomycin-Po 2020-05 No 4{drops TID Neomycin-P lymyxin-HC lymyxin-HC 1-11 _into_a olymyxin-H 3.584026-7 3.524750-9 00:00: ffected C 00 _ear} 3.5- Neomycin-Po Neomycin-Po 2020-05 No 4{drops TID Neomycin-P lymyxin-HC lymyxin-HC 1-11 _into_a olymyxin-H 3.504675-8 3.514411-3 00:00: ffected C 00 _ear} 3.5- Neomycin-Po Neomycin-Po 2020-05 No 4{drops TID Neomycin-P lymyxin-HC lymyxin-HC 1-11 _into_a olymyxin-H 3.599382-3 3.587116-0 00:00: ffected C 00 _ear} 3.5- Neomycin-Po Neomycin-Po 2020-05 No 4{drops TID Neomycin-P lymyxin-HC lymyxin-HC 1-11 _into_a olymyxin-H 3.556740-2 3.561559-5 00:00: ffected C 00 _ear} 3.5- Neomycin-Po Neomycin-Po 2020-05 No 4{drops TID Neomycin-P lymyxin-HC lymyxin-HC 1-11 _into_a olymyxin-H 3.509578-0 3.538996-7 00:00: ffected C 00 _ear} 3.5- Neomycin-Po Neomycin-Po 2020-05 No 4{drops TID Neomycin-P lymyxin-HC lymyxin-HC 1-11 _into_a olymyxin-H 3.564239-7 3.580008-6 00:00: ffected C 00 _ear} 3.5- Topiramate Topiramate 2020-05 No 1{table BID Topiramate 50 MG 50 MG 1-11 t} 50 MG 00:00: 00 Neomycin-Po Neomycin-Po 2020-05 No 4{drops TID Neomycin-P lymyxin-HC lymyxin-HC 1-11 _into_a olymyxin-H 3.5 3.5 00:00: ffected C 00 _ear} 3.5 Depo-Editor News Depo-Editor News No 150mg Common a a 6-15 Spirit (Medroxypro (Medroxypro 00:00: - CHI gesterone gesterone ) ) [facility] Depo-Editor News Depo-Editor News No 150mg Common a a 6-15 Spirit (Medroxypro (Medroxypro 00:00: - CHI gesterone gesterone ) ) [facility] Depo-Editor News Depo-Editor News No 150mg Common a a 6-15 Spirit (Medroxypro (Medroxypro 00:00: - CHI gesterone gesterone ) ) [facility] Depo-Editor News Depo-Editor News No 150mg Common a a 6-15 Spirit (Medroxypro (Medroxypro 00:00: - CHI gesterone gesterone ) ) [facility] Depo-Editor News Depo-Editor News No 150mg Common a a 6-15 Spirit (Medroxypro (Medroxypro 00:00: - CHI gesterone gesterone ) ) [facility] Depo-Editor News Depo-Editor News No 150mg Common a a 6-15 Spirit (Medroxypro (Medroxypro 00:00: - CHI gesterone gesterone ) ) [facility] Depo-Editor News Depo-Editor News No 150mg Common a a 6-15 Spirit (Medroxypro (Medroxypro 00:00: - CHI gesterone gesterone ) ) [facility] Depo-Editor News Depo-Editor News No 150mg Common a a 6-15 Spirit (Medroxypro (Medroxypro 00:00: - CHI gesterone gesterone ) ) [facility] Albuterol Albuterol 0 No 2{puffs Albuterol Sulfate HFA Sulfate HFA 1-21 } Sulfate 108 (90 108 (90 00:00: HFA 108 Base) Base) 00 (90 Base) MCG/ACT MCG/ACT MCG/ACT Albuterol Albuterol 2020-0 No 2{puffs Sulfate HFA Sulfate HFA 1-21 } 108 (90 108 (90 00:00: Base) Base) 00 MCG/ACT MCG/ACT Albuterol Albuterol 2020-0 No 2{puffs Albuterol Sulfate HFA Sulfate HFA 1-21 } Sulfate 108 (90 108 (90 00:00: HFA 108 Base) Base) 00 (90 Base) MCG/ACT MCG/ACT MCG/ACT Albuterol Albuterol 2020-0 No 2{puffs Albuterol Sulfate HFA Sulfate HFA 1-21 } Sulfate 108 (90 108 (90 00:00: HFA 108 Base) Base) 00 (90 Base) MCG/ACT MCG/ACT MCG/ACT Albuterol Albuterol 0 No 2{puffs Albuterol Sulfate HFA Sulfate HFA 1-21 } Sulfate 108 (90 108 (90 00:00: HFA 108 Base) Base) 00 (90 Base) MCG/ACT MCG/ACT MCG/ACT Albuterol Albuterol 2020-0 No 2{puffs Albuterol Sulfate HFA Sulfate HFA 1-21 } Sulfate 108 (90 108 (90 00:00: HFA 108 Base) Base) 00 (90 Base) MCG/ACT MCG/ACT MCG/ACT Albuterol Albuterol 2020-0 No 2{puffs Albuterol Sulfate HFA Sulfate HFA 1-21 } Sulfate 108 (90 108 (90 00:00: HFA 108 Base) Base) 00 (90 Base) MCG/ACT MCG/ACT MCG/ACT Albuterol Albuterol 2020-0 No 2{puffs Albuterol Sulfate HFA Sulfate HFA 1-21 } Sulfate 108 (90 108 (90 00:00: HFA 108 Base) Base) 00 (90 Base) MCG/ACT MCG/ACT MCG/ACT Albuterol Albuterol 2020-0 No 2{puffs Albuterol Sulfate HFA Sulfate HFA 1-21 } Sulfate 108 (90 108 (90 00:00: HFA 108 Base) Base) 00 (90 Base) MCG/ACT MCG/ACT MCG/ACT Depo-Editor News Depo-Editor News 2019-0 No 150mg Common a a 9-15 Spirit (Medroxypro (Medroxypro 00:00: - CHI gesterone gesterone ) ) [facility] Depo-Editor News Depo-Editor News 2019-0 No 150mg Common a a 9-15 Spirit (Medroxypro (Medroxypro 00:00: - CHI gesterone gesterone ) ) [facility] Depo-Editor News Depo-Editor News 2019-0 No 150mg Common a a 9-15 Spirit (Medroxypro (Medroxypro 00:00: - CHI gesterone gesterone ) ) [facility] Depo-Editor News Depo-Editor News 2019-0 No 150mg Common a a 9-15 Spirit (Medroxypro (Medroxypro 00:00: - CHI gesterone gesterone ) ) [facility] Depo-Editor News Depo-Editor News 2019-0 No 150mg Common a a 9-15 Spirit (Medroxypro (Medroxypro 00:00: - [facility] gesterone gesterone ) ) [facility] Depo-Editor News Depo-Editor News 2019-0 No 150mg Common a a 9-15 Spirit (Medroxypro (Medroxypro 00:00: - CHI gesterone gesterone ) ) [facility] Depo-Editor News Depo-Editor News 2019-0 No 150mg Common a a 9-15 Spirit (Medroxypro (Medroxypro 00:00: - CHI gesterone gesterone ) ) [facility] Depo-Editor News Depo-Editor News 2019-0 No 150mg Common a a 9-15 Spirit (Medroxypro (Medroxypro 00:00: - CHI gesterone gesterone ) ) [facility] Depo-Editor News Depo-Editor News 2019-0 2020- No Na Mathias 1 ml Common a a 9-15 -17 Spirit 00:00: 00:00 - CHI 00 :00 [facility] Lisinopril Lisinopril Yes Na Mathias 1 tablet Common [facility] Topamax Topamax Yes Na Mathias 2 tablet Co mmon [facility] Amlodipine Amlodipine Yes Na Mathias 1 tablet Common Besylate Besylate [facility] Gabapentin Gabapentin Yes Na Mathias 1 tablet Common [facility] Losartan Losartan No Losartan Potassium [...] 10 t} Besylate MG MG 10 MG hydroCHLORO hydroCHLORO No hydroCHLOR thiazide 25 thiazide 25 Othiazide MG MG 25 MG Losartan Losartan No Losartan Potassium Potassium Potassium 50 MG 50 MG 50 MG QUEtiapine QUEtiapine No 1{table QD QUEtiapine Fumarate Fumarate t_at_be Fumarate 100 MG 100 MG dtime} 100 MG Topiramate Topiramate No Topiramate 50 MG 50 MG 50 MG Albuterol Albuterol No 2{puffs Albuterol Sulfate HFA Sulfate HFA } Sulfate 108 (90 108 (90 HFA 108 Base) Base) (90 Base) MCG/ACT MCG/ACT MCG/ACT Topamax 100 Topamax 100 No 2{table QD Topamax MG MG t} 100 MG Gabapentin Gabapentin No 1{table TID Gabapentin [...] Name Observation Time Observation Value Comments Source Systolic blood 2023-01-29 16:02:00 123 mm[Hg] Univer [facility] Diastolic blood 2023-01-29 16:02:00 89 [facility]Hg[facility] 2023-01-29 16:02:00 97 /min [facility] Body temperature 2023-01-29 16:02:00 36.56 [place] [facility] Respiratory rate 2023-01-29 16:02:00 20 /min [facility] Oxygen saturation in 2023-01-29 16:02:00 92 /min [facility] Arterial blood by [facility] Pulse oximetry [place] Body height 2023-01-27 03:30:00 172.7 cm [facility] Body weight 2023-01-27 03:30:00 88 kg [facility] BMI 2023-01-27 03:30:00 29.51 kg/m2 [facility] height 2021-09-13 11:20:00 69.00 [in_i] [facility] weight 2021-09-13 11:20:00 240.2 [lb_av] [facility] temperature 2021-09-13 11:20:00 97.8 [degF] [facility] bmi 2021-09-13 11:20:00 35.47 kg/m2 [facility] oximetry 2021-09-13 11:20:00 98 % Common [facility] respiratory rate 2021-09-13 11:20:00 18 /min Comm on Spirit - [facility] blood pressure 2021-09-13 11:20:00 130 mm[Hg] [facility] - systolic [facility] blood pressure 2021-09-13 11:20:00 81 mm[Hg] [facility] - diastolic [facility] height 2021-07-03 14:15:00 69.00 [in_i] Common [facility] weight 2021-07-03 14:15:00 258 [lb_av] Common [facility] temperature 2021-07-03 14:15:00 98.0 [degF] Common S pirit [facility] bmi 2021-07-03 14:15:00 38.1 kg/m2 Common S pirit [facility] blood pressure 2021-07-03 14:15:00 136 mm[Hg] [facility] - systolic [facility] blood pressure 2021-07-03 14:15:00 84 mm[Hg] [facility] - diastolic [facility] height 2021-06-19 15:00:00 69.00 [in_i] Common S pirit [facility] weight 2021-06-19 15:00:00 258 [lb_av] Common S pirit [facility] bmi 2021-06-19 15:00:00 38.1 kg/m2 Common S pirit - [facility] blood pressure 2021-06-19 15:00:00 118 mm[Hg] [facility] - systolic [place] [facility] blood pressure 2021-06-19 15:00:00 75 mm[Hg] [facility] - [facility] [place] [facility] height 2021-06-04 13:00:00 69.00 [in_i] [facility] weight 2021-06-04 13:00:00 258 [lb_av] [facility] bmi 2021-06-04 13:00:00 38.1 kg/m2 Common [facility] blood pressure 2021-06-04 13:00:00 110 mm[Hg] Common [facility] - systolic [place] [facility] blood pressure 2021-06-04 13:00:00 72 mm[Hg] Common [facility] - diastolic [place] [facility] height 2021-06-03 13:20:00 69.00 [in_i] [facility] weight 2021-06-03 13:20:00 258.2 [lb_av] [facility] - [place] [facility] bmi 2021-06-03 13:20:00 38.13 kg/m2 [facility] bmi 2021-03-14 13:00:00 38.13 kg/m2 [facility] oximetry 2021-03-14 13:00:00 96 % [facility] respiratory rate 2021-03-14 13:00:00 16 /min Comm on [facility] blood pressure 2021-03-14 13:00:00 109 mm[Hg] Common [facility] - systolic [place] [facility] blood pressure 2021-03-14 13:00:00 64 mm[Hg] Common [facility] diastolic [place] [facility] height 2021-03-14 13:00:00 69.00 [in_i] [facility] weight 2021-03-14 13:00:00 258.2 [lb_av] [facility] temperature 2021-03-14 13:00:00 97.9 [degF] [facility] Procedures Procedure Date / Time Performing Source Performed Clinician BASIC METABOLIC PANEL (NA, K, 2023-01-29 [facility] CL, CO2, GLUCOSE, BUN, 09:17:00 [facility] [place] CREATININE, [place]) CBC WITH DIFF 2023-01-29 Rosario [facility] 09:17:00 [facility] Medical Branch MAGNESIUM 2023-01-29 [facility] 09:17[facility]00 [facility] Medical Branch [place] MODIFIED BARIUM SWALLOW 2023-01-28 LerJuliocesar galan [facility] [place] 19:30:00 Nicu Medical [facility] BASIC METABOLIC PANEL (NA, K, 2023-01-28 Masoud Peoples [facility] [place] CL, CO2, GLUCOSE, BUN, 09:49:00 [facility] CREATININE, [place]) CBC WITH DIFF 2023-01-28 Masoud Peoples [facility] [place] 09:49:00 [facility] MAGNESIUM 2023-01-28 Masoud Peoples [facility] [place] 09:49:00 Medical Branch XR KUB 2023-01-27 [place] [place] 10:13:00 Medical Branch XR KUB 2023-01-27 Jose [facility] [place] 03:40:00 [facility] BASIC METABOLIC PANEL (NA, K, 2023-01-26 [facility], CO2, GLUCOSE, BUN, 09:09:00 [facility] CREATININE, [place]) CBC WITH DIFF 2023-01-26 [facility] [place] 09:09:00 Medical Branch MAGNESIUM 2023-01-26 Louise [facility] [place] 09:09:00 Medical Branch XR CHEST 1 VW 2023-01-25 Daniel [facility] x[place] 17:31:00 Medical Branch HB ECG ROUTINE & RHYTHM STRIP 2023-01-25 Daljit Sanchez [facility] [place] 14:47:15 Medical Branch BASIC METABOLIC PANEL (NA, K, 2023-01-25 [facility], CO2, GLUCOSE, BUN, 07:49:00 [facility] ranch CREATININE, [place]) CBC WITH DIFF 2023-01-25 Luis Garcia [facility] [place] 07:49:00 [facility] MAGNESIUM 2023-01-25 Jose [facility] [place] 07:49:00 [facility] HCV ANTIBODY 2023-01-24 Pineda [facility] [place] 23:29:00 Medical Branch BASIC METABOLIC PANEL (NA, K, 2023-01-24 Rishabh Gallagher [facility] [place] CL, CO2, GLUCOSE, BUN, 06:03:00 Hugo [facility] ranch CREATININE, [place]) HIV 1/2 AG-AB WITH REFLEX 2023-01-24 Jayy Sung [facility] 06:03:00 Medical Branch MAGNESIUM 2023-01-24 Elliott [facility] [place] 06:03:00 [facility] MAGNESIUM 2023-01-23 Ynalvechinmay, [facility] [place] 09:56:00 [facility] BASIC METABOLIC PANEL (NA, K, 2023-01-23 Chino [facility] CL, CO2, GLUCOSE, BUN, 09:56:00 [facility] CREATININE, [place]) CBC WITH DIFF 2023-01-23 Elliott [facility] [place] 09:56:00 [facility] URINALYSIS 2023-01-22 Jose [facility] [place] 09:57:00 [facility] URINE CULTURE 2023-01-22 Jose, [facility] [place] 09:57:00 [facility] XR ABDOMEN 1 VW 2023-01-22 Jose [facility] [place] 09:19:00 [facility] XR CHEST 1 VW 2023-01-22 Jose [facility] [place] 09:19:00 [facility] AC PANEL 20 + LACTIC ACID 2023-01-22 Luis Garcia [facility] 08:24:00 [facility] THYROID STIMULATING HORMONE 2023-01-22 Luis Garcia [facility] 08:02:00 [facility] COMP. METABOLIC PANEL (03430) 2023-01-22 [facility] 08:02:00 [facility] LIPID PANEL (47623)(TOTAL 2023-01-22 Luis Garcia [facility] CHOLESTEROL, TRIGLYCERIDES, 08:02:00 [facility] HDL) SALICYLATE 2023-01-22 Luis Garcia [facility] [place] 08:02:00 [facility] ETHANOL 2023-01-22 Jose [facility] [place] 08:02:00 [facility] CBC WITH DIFF 2023-01-22 Jose [facility] [place] 08:02:00 [facility] GLYCOSYLATED HEMOGLOBIN (A1C) 2023-01-22 Luis [facility] 08:02:00 [facility] PROTHROMBIN TIME / INR 2023-01-22 Jose [facility] 08:02:00 [facility] CREATINE KINASE 2023-01-22 Jose [facility] [place] 08:02:00 [facility] MAGNESIUM 2023-01-22 Jose [facility] [place] 08:02:00 [facility] CT HEAD WO CONTRAST 2023-01-[address] [facility] 07:55:22 [facility] CT ANGIOGRAM HEAD 2023-01-[address] [facility] 07:55:15 [facility] CT ANGIOGRAM NECK 2023-01-22 Jose, [facility] 07:55:08 [facility] MRSA / MSSA SCREEN BY PCR, 2023-01-22 Jose [facility] 07:10:00 [facility] ELECTROENCEPHALOGRAM 2023-01-[address] [facility] 00:00:00 [facility] Encounters Start End Encounter Admission Attending Care Care Encounter Source Date/Time Date/Time Type Type Clinicians Facility Department ID 2022-10-08 Outpatient STLMLC STLMLC [id number] Common 13:45:00 [id number] [facility] 2022-09-30 Outpatient Leann, STLMLC STLMLC [id number] Common 15:36:00 [id number] [facility] 2022-06-18 Outpatient Leann, STLMLC STLMLC [id number] Common 13:59:01 [id number] [facility] 2021-09-13 Outpatient Mathias, Na STLMLC STLMLC [id number] 2 Common 11:20:00 [facility] 2021-09-11 Outpatient Mathias, Na STLMLC STLMLC [id number] 2 Common 13:29:01 [facility] 2021-07-29 Outpatient Mathias, Na STLMLC STLMLC [id number] 2 Common 08:51:02 [facility] 2021-07-25 Outpatient Mathias, Na STLMLC STLMLC [id number] 2 Common 10:37:02 [facility] 2021-06-14 Outpatient Mathias, Na STLMLC STLMLC [id number] 2 Common 16:24:03 [facility] 2021-06-13 Outpatient Mathias, Na STLMLC STLMLC [id number] 2 Common 14:58:00 [facility] 2021-06-06 Outpatient Mathias, Na STLMLC STLMLC [id number] 2 Common 08:05:00 [facility] 2021-06-04 Outpatient Mathias, Na STLMLC STLMLC [id number] 2 Common 14:17:01 [facility] 2021-06-03 Outpatient Mathias, Na STLMLC STLMLC [id number] 2 Common 15:45:02 [facility] 2021-05-29 Outpatient Mathias, Na STLMLC STLMLC [id number] 2 Common 14:29:06 [id number] [facility] 2021-05-29 Outpatient Mathias, Na STLMLC STLMLC [id number] 2 Common 14:27:14 [id number] [facility] 2021-05-29 Outpatient Mathias, Na STLMLC STLMLC [id number] 2 Common 13:56:00 [facility] 2021-05-29 Outpatient Mathias, Na STLMLC STLMLC [id number] 2 Common 13:06:52 [id number] [facility] 2021-05-29 Outpatient Mathias, Na STLMLC STLMLC [id number] 2 Common 13:03:04 [id number] [facility] 2021-05-29 Outpatient Mathias, Na STLMLC STLMLC [id number] 2 Common 13:02:25 [id number] [facility] 2021-05-29 Outpatient Mathais, Na STLMLC STLMLC [id number] 2 Common 12:55:55 [id number] [facility] 2021-05-29 Outpatient Mathias, Na STLMLC STLMLC [id number] 2 Common 12:26:37 [id number] [facility] 2021-05-29 Outpatient Mathias, Na STLMLC STLMLC [id number] 2 Common 12:23:42 [id number] [facility] 2021-05-29 Outpatient Mathias, Na STLMLC STLMLC [id number] 2 Common 12:23:37 [id number] [facility] 2021-05-29 Outpatient Mathias, Na STLMLC STLMLC [id number] 2 Common 12:10:33 [id number] [facility] 2021-05-29 Outpatient Mathias, Na STLMLC STLMLC [id number] 2 Common 12:06:38 [id number] [facility] 2021-05-29 Outpatient Mathias, Na STLMLC STLMLC [id number] 2 Common 12:05:32 [id number] [facility] 2021-05-29 Outpatient Mathias, Na STLMLC STLMLC [id number] 2 Common 12:02:25 [id number] [facility] 2021-05-29 Outpatient Mathias, Na STLMLC STLMLC [id number] 2 Common 12:01:15 [id number] [facility] 2021-05-29 Outpatient Mathias, Na STLMLC STLMLC [id number] 2 Common 11:43:31 [id number] [facility] 2023-03-13 2023-03-13 Outpatient SFA SFA [id number] Fredy 15:57:33 15:57:33 [id number] Saba Chetan 2023-03-04 2023-03-04 Outpatient GC_GCBZW_Ka PRIV PRIV [id number] [facility] 00:00:00 00:00:00 diyala_S [id number] [facility] 2023-02-13 2023-02-13 Outpatient SFA SFA [id number] Fredy 14:29:43 14:29:43 [id number] Saba Chetan 2023-02-04 2023-02-04 Outpatient SFA SFA [id number] Fredy 17:08:41 17:08:41 [id number] F Chetan 2023-02-03 2023-02-03 Outpatient SFA SFA [id number] Fredy 13:58:28 13:58:28 [id number] F Chetan 2023-01-302023-01-30 Transition SHERIE Bhatia [id number] Univers 00:00:00 00:00:00 of Care Luz Marina Max REYES [id number] i ty [id number] [id number] 403 Branch 2023-01-22 2023-01-29 Inpatient U FRAN [facility] [id number] Univers 01:27:00 14:18:00 [facility]23-01-22 2023-01-29 [facility] Kael Waldemar KIM [id number] Univers 01:27:00 14:18:00 Encounter VivianasriramSherlyluan HARRELL 350.1 .13.10 ity [facility] [id number] [place] [id number] [facility] 093 Branch 2023-01-15 2023-01-15 Outpatient SFA SFA [id number] Fredy 13:27:33 13:27:33 [id number] [place] 2022-11-28 2022-11-28 Outpatient SFA SFA [id number] Fredy 14:58:37 14:58:37 [id number] [place] 2022-06-18 2022-06-18 (TEL) STLMLC STLMLC [id number] Co mmon 00:00:00 00:00:00 [facility] 2021-12-11 2021-12-11 (TEL) STLMLC STLMLC [id number] Co mmon 00:00:00 00:00:00 [facility] 2021-10-07 2021-10-07 (TEL) STLMLC STLMLC [id number] Co mmon 00:00:00 00:00:00 [facility] 2021-10-01 2021-10-01 (TEL) STLMLC STLMLC [id number] Co mmon 00:00:00 00:00:00 [facility] 2021-09-13 2021-09-13 OFFICE STLMLC STLMLC [id number] Co mmon 00:00:00 00:00:00 VISIT EST Spir it PT LEVEL 3 - [facility] 2021-07-25 2021-07-25 (TEL) STLMLC STLMLC [id number] Co mmon 00:00:00 00:00:00 [facility] 2021-07-03 2021-07-03 OFFICE STLMLC STLMLC [id number] Co mmon 00:00:00 00:00:00 VISIT EST Spir it PT LEVEL 3 - [place] [facility] 2021-06-19 2021-06-19 OFFICE STLMLC STLMLC [id number] Co mmon 00:00:00 00:00:00 VISIT EST Spir it PT LEVEL 3 [facility] 2021-06-04 2021-06-04 CONSULT - STLMLC STLMLC [id number] Common 00:00:00 00:00:00 OFFICE, L3 Spi rit [facility] 2021-06-03 2021-06-03 OL DIG E/M STLMLC STLMLC [id number] Common 00:00:00 00:00:00 SVC 21+ [facility] MIN [facility] 2021-05-27 2021-05-27 (TEL) STLMLC STLMLC [id number] Co mmon 00:00:00 00:00:00 [facility] 2021-05-03 2021-05-03 (TEL) STLMLC STLMLC [id number] Co mmon 00:00:00 00:00:00 [facility] 2021-04-01 2021-04-01 (TEL) STLMLC STLMLC [id number] Co mmon 00:00:00 00:00:00 [facility] 2021-03-14 2021-03-14 OFFICE STLMLC STLMLC [id number] Co mmon 00:00:00 00:00:00 VISIT [facility] ESTAB PT - [facility] LEVEL 4 [facility] 2020-12-03 2020-12-03 Outpatient STLMLC STLMLC [id number] Common 00:00:00 00:00:00 [facility] 2020-10-16 2020-10-16 Outpatient STLMLC STLMLC [id number] Common 00:00:00 00:00:00 [facility] 2020-10-11 2020-10-11 Outpatient STLMLC STLMLC [id number] Common 00:00:00 00:00:00 [facility] 2020-09-13 2020-09-13 Outpatient STLMLC STLMLC [id number] Common 00:00:00 00:00:00 [facility] 2020-08-27 2020-08-27 Outpatient STLMLC STLMLC [id number] Common 00:00:00 00:00:00 [facility] 2020-08-07 2020-08-07 Outpatient STLMLC STLMLC [id number] Common 00:00:00 00:00:00 [facility] 2020-07-31 2020-07-31 Outpatient STLMLC STLMLC [id number] Common 00:00:00 00:00:00 [facility] 2020-05-24 2020-05-24 Outpatient STLMLC STLMLC [id number] Common 00:00:00 00:00:00 [facility] 2020-04-17 2020-04-17 Outpatient STLMLC STLMLC [id number] Common 00:00:00 00:00:00 [facility] 2020-03-21 2020-03-21 Outpatient STLMLC STLMLC [id number] Common 00:00:00 00:00:00 [facility] 2020-03-19 2020-03-19 Outpatient STLMLC STLMLC [id number] Common 00:00:00 00:00:00 [facility] 2020-01-25 2020-01-25 Outpatient STLMLC STLMLC [id number] Common 00:00:00 00:00:00 [facility] 2020-01-17 2020-01-17 [place] [id number] Common 13:40:00 13:40:00 t [employer] [address] [facility] 2020-01-16 2020-01-16 [facility] [id number] Common 10:47:00 10:47:[address] [facility] 2020-01-06 2020-01-06 Outpatient Ricky Gotti [id number] Common 18:38:00 18:38:[address] [facility] 2020-01-06 2020-01-06 Outpatient Ricky Gotti [id number] Common 09:00:00 09:00:[address] [facility] Results Test Description Test Time Test Comments Results Result Comments Source MAGNESIUM 2023-01-26 10:00:23 Test Item Value Reference Range Interpretation Comme nts MAGNESIUM (test code = 1508287890) 1.9 mg/dL 1.7-2.4 Lab Interpretation (test code = 05344-9) Normal [facility] METABOLIC PANEL (NA, K, CL, CO2, GLUCOSE, BUN, CREATININE, CA)2023-01-26 10:00:23 Test Item Value Reference Range Interpretation Comments NA (test code = 138 mmol/L 135-145 9996876779) K (test code = 3.8 mmol/L 3.5-5.0 3267790529) CL (test code = 105 mmol/L 98-108 3789218715) CO2 TOTAL (test code = 22 mmol/L 23-31 L 1786920638) AGAP (test code = 11 2-16 3176618392) BUN (test code = 12 mg/dL 7-23 2713009081) GLUCOSE (test code = 118 mg/dL 70-110 H 4047615543) CREATININE (test code = 0.81 mg/dL 0.50-1.04 1358486647) CALCIUM (test code = 9.0 mg/dL 8.6-10.6 4475451387) eGFR (test code = 77.2 mL/min/1.73m2 5800550904) WILLIAM (test code = WILLIAM) Association of Glomerular Filtration Rate (GFR) and Staging of Kidney Disease* + --+ --+ ------+| GFR (mL/min/1.73 m2) ?| With Kidney Damage ?| ?Without Kidney Damage+ --------+ --------+ +| ?>90 ?| ?Stage one ?| ? Normal ?+ ---+ ---+ -------+| ?60-89 ?| ?Stage two ?| ? Decreased GFR ? + --+ --+ ------+| ?30-59 ?| ?Stage three ?| ? Stage three ? + --+ --+ ------+| ?15-29 ?| ?Stage four ? | ? Stage four ?+ ---+ ---+ -------+| ?<15 (or dialysis) ? ?| ?Stage five ? | ? Stage five ?+ ---+ ---+ -------+ *Each stage assumes the associated GFR level has been in effect for at least three months. ?Stages 1 to 5, with or without kidney disease, indicate chronic kidney disease. Notes: Determination of stages one and two (with eGFR >59mL/min/1.73 m2) requires estimation of kidney damage for at least three months as defined by structural or functional abnormalities of the kidney, manifested by either:Pathological abnormalities or Markers of kidney damage (including abnormalities in the composition of the blood or urine or abnormalities in imaging tests). Lab Interpretation Abnormal (test code = 40877-9) [facility] WITH [id number] 09:24:40 Test Item Value Reference Range Interpretation Comments WBC (test code = 12.40 See_Comment H [Automated 6690-2) message] The sy stem which generated this result transmitted reference range : 4.30 - 11.10 10*3/?L. The reference range was not used to interpret this result as normal/abnormal . RBC (test code = 3.48 See_Comment L [Automated 789-8) message] The sy stem which generated this result transmitted reference range : 3.93 - 5.25 10*6/?L. The reference range was not used to interpret this result as normal/abnormal . HGB (test code = 12.5 g/dL 11.6-15.0 718-7) HCT (test code = 35.7 % 35.7-45.2 4544-3) MCV (test code = 102.6 fL 80.6-95.5 H 787-2) MCH (test code = 35.9 pg 25.9-32.8 H 785-6) MCHC (test code = 35.0 g/dL 31.6-35.1 786-4) RDW-SD (test code = 49.1 fL 39.0-49.9 02341-5) RDW-CV (test code = 12.9 % 12.0-15.5 788-0) PLT (test code = 324 See_Comment [Automated 777-3) message] The sy stem which generated this result transmitted reference range : 166 - 358 10*3/ ?L. The reference r fifi was not used to interpret this result as normal/abnormal . MPV (test code = 9.4 fL 9.5-12.9 L 32340-8) NRBC/100 WBC (test 0.0 See_Comment [Automat ed code = 4636745392) message] The system which generated this result transmitted reference range : 0.0 - 10.0 /100 WBCs. The refer ence range was not u sed to interpret th is result as normal/abnormal . NRBC x10^3 (test code See_Comment [Auto mated = 4277256320) message] The s ystem which generated this result transmitted reference range : 10*3/?L. The reference range was not used to interpret this result as normal/abnormal . GRAN MAT (NEUT) % 78.1 % (test code = 770-8) IMM GRAN % (test code 0.30 % = 7056874895) LYMPH % (test code = 12.0 % 736-9) MONO % (test code = 6.9 % 5905-5) EOS % (test code = 2.3 % 713-8) BASO % (test code = 0.4 % 706-2) GRAN MAT x10^3(ANC) 9.68 10*3/uL 1.88-7.09 H (test code = 7981741151) IMM GRAN x10^3 (test 0.04 10*3/uL 0.00-0.06 code = 5222758370) LYMPH x10^3 (test code 1.49 10*3/uL 1.32-3.29 = 731-0) MONO x10^3 (test code 0.86 10*3/uL 0.33-0.92 = 742-7) EOS x10^3 (test code = 0.28 10*3/uL 0.03-0.39 711-2) BASO x10^3 (test code 0.05 10*3/uL 0.01-0.07 = 704-7) Lab Interpretation Abnormal (test code = 05424-9) [facility] METABOLIC PANEL (NA, K, CL, CO2, GLUCOSE, BUN, CREATININE, CA)2023-01-25 08:27:41 Test Item Value Reference Range Interpretation Comments NA (test code = 136 mmol/L 135-145 1272346000) K (test code = 3.8 mmol/L 3.5-5.0 7189308384) CL (test code = 106 mmol/L 98-108 6181430399) CO2 TOTAL (test code = 20 mmol/L 23-31 L 3883756268) AGAP (test code = 10 2-16 8418265521) BUN (test code = 10 mg/dL 7-23 1516294309) GLUCOSE (test code = 115 mg/dL 70-110 H 4121638847) CREATININE (test code = 0.83 mg/dL 0.50-1.04 0382067228) CALCIUM (test code = 8.7 mg/dL 8.6-10.6 1763013636) eGFR (test code = 75.0 mL/min/1.73m2 1929891080) WILLIAM (test code = WILLIAM) Association of Glomerular Filtration Rate (GFR) and Staging of Kidney Disease* + --+ --+ ------+| GFR (mL/min/1.73 m2) ?| With Kidney Damage ?| ?Without Kidney Damage+ --------+ --------+ +| ?>90 ?| ?Stage one ?| ? Normal ?+ ---+ ---+ -------+| ?60-89 ?| ?Stage two ?| ? Decreased GFR ? + --+ --+ ------+| ?30-59 ?| ?Stage three ?| ? Stage three ? + --+ --+ ------+| ?15-29 ?| ?Stage four ? | ? Stage four ?+ ---+ ---+ -------+| ?<15 (or dialysis) ? ?| ?Stage five ? | ? Stage five ?+ ---+ ---+ -------+ *Each stage assumes the associated GFR level has been in effect for at least three months. ?Stages 1 to 5, with or without kidney disease, indicate chronic kidney disease. Notes: Determination of stages one and two (with eGFR >59mL/min/1.73 m2) requires estimation of kidney damage for at least three months as defined by structural or functional abnormalities of the kidney, manifested by either:Pathological abnormalities or Markers of kidney damage (including abnormalities in the composition of the blood or urine or abnormalities in imaging tests). Lab Interpretation Abnormal (test code = 58027-4) [facility] Test Item Value Reference Range Interpretation Comments MAGNESIUM (test code = 5105006049) 1.8 mg/dL 1.7-2.4 Lab Interpretation (test code = Normal 22499-5) [facility] WITH [id number] 08:04:59 Test Item Value Reference Range Interpretation Comments WBC (test code = 12.60 See_Comment H [Automated 6690-2) message] The system which generated this result transmit major reference range : 4.30 - 11.10 10*3/?L. The reference range was not used to interpret this result as normal/abnormal . RBC (test code = 3.45 See_Comment L [Automated 789-8) message] The system which generated this result transmit major reference range : 3.93 - 5.25 10*6/?L. The reference range was not used to interpret this result as normal/abnormal . HGB (test code = 12.3 g/dL 11.6-15.0 718-7) HCT (test code = 36.4 % 35.7-45.2 4544-3) MCV (test code = 105.5 fL 80.6-95.5 H 787-2) MCH (test code = 35.7 pg 25.9-32.8 H 785-6) MCHC (test code = 33.8 g/dL 31.6-35.1 786-4) RDW-SD (test code = 51.8 fL 39.0-49.9 H 14154-6) RDW-CV (test code = 13.4 % 12.0-15.5 788-0) PLT (test code = 340 See_Comment [Automated 777-3) message] The system which generated this result transmit major reference range : 166 - 358 10*3/ ?L. The reference range was not u sed to interpret th is result as normal/abnormal . MPV (test code = 9.3 fL 9.5-12.9 L 16631-5) NRBC/100 WBC (test 0.0 See_Comment [Automat ed code = 5334929744) message] The system which generated this result transmit major reference range : 0.0 - 10.0 /100 WBCs. The reference range was not used to interpret this result as normal/abnormal . NRBC x10^3 (test code See_Comment [Auto mated = 2588947171) message] The system which generated this result transmit major reference range : 10*3/?L. The reference range was not used to interpret this result as normal/abnormal . GRAN MAT (NEUT) % 79.7 % (test code = 770-8) IMM GRAN % (test code 0.40 % = 1716061171) LYMPH % (test code = 10.6 % 736-9) MONO % (test code = 6.0 % 5905-5) EOS % (test code = 2.9 % 713-8) BASO % (test code = 0.4 % 706-2) GRAN MAT x10^3(ANC) 10.05 10*3/uL 1.88-7.09 H (test code = 5115251678) IMM GRAN x10^3 (test 0.05 10*3/uL 0.00-0.06 code = 3251301808) LYMPH x10^3 (test code 1.33 10*3/uL 1.32-3.29 = 731-0) MONO x10^3 (test code 0.76 10*3/uL 0.33-0.92 = 742-7) EOS x10^3 (test code = 0.36 10*3/uL 0.03-0.39 711-2) BASO x10^3 (test code 0.05 10*3/uL 0.01-0.07 = 704-7) Lab Interpretation Abnormal (test code = 86625-9) [id number] 01:07:35 Test Item Value Reference Range Interpretation Comments HCV Ab (test code = 56626-2) Negative HCV Semi-Quantitative (test code = 0.08 11795-0) [facility] WITH [id number] 00:05:56 Test Item Value Reference Range Interpretation Comments HIV 0.11 Negative Semi-quantitative (test code = 59246-6) WILLIAM (test code = Non-reactive for HIV-1 WILLIAM) antigen and HIV-1/HIV-2 antibodies. ?No laboratory evidence of HIV infection. ?Repeat in 2-4 weeks if acute HIV infection is suspected. [facility] METABOLIC PANEL (NA, K, CL, CO2, GLUCOSE, BUN, CREATININE, CA)2023-01-24 06:54:52 Test Item Value Reference Range Interpretation Comments NA (test code = 137 mmol/L 135-145 8343225364) K (test code = 4.0 mmol/L 3.5-5.0 5252028536) CL (test code = 107 mmol/L 98-108 2411110548) CO2 TOTAL (test code = 25 mmol/L 23-31 9706877491) AGAP (test code = 5 2-16 4239160972) BUN (test code = 12 mg/dL 7-23 0912345739) GLUCOSE (test code = 92 mg/dL 70-110 7881355593) CREATININE (test code = 0.99 mg/dL 0.50-1.04 8722371298) CALCIUM (test code = 8.3 mg/dL 8.6-10.6 L 7604638764) eGFR (test code = 61.2 mL/min/1.73m2 8622810007) WILLIAM (test code = WILLIAM) Association of Glomerular Filtration Rate (GFR) and Staging of Kidney Disease* + --+ --+ ------+| GFR (mL/min/1.73 m2) ?| With Kidney Damage ?| ?Without Kidney Damage+ --------+ --------+ +| ?>90 ?| ?Stage one ?| ? Normal ?+ ---+ ---+ -------+| ?60-89 ?| ?Stage two ?| ? Decreased GFR ? + --+ --+ ------+| ?30-59 ?| ?Stage three ?| ? Stage three ? + --+ --+ ------+| ?15-29 ?| ?Stage four ? | ? Stage four ?+ ---+ ---+ -------+| ?<15 (or dialysis) ? ?| ?Stage five ? | ? Stage five ?+ ---+ ---+ -------+ *Each stage assumes the associated GFR level has been in effect for at least three months. ?Stages 1 to 5, with or without kidney disease, indicate chronic kidney disease. Notes: Determination of stages one and two (with eGFR >59mL/min/1.73 m2) requires estimation of kidney damage for at least three months as defined by structural or functional abnormalities of the kidney, manifested by either:Pathological abnormalities or Markers of kidney damage (including abnormalities in the composition of the blood or urine or abnormalities in imaging tests). Lab Interpretation Abnormal (test code = 70254-3) [facility] Test Item Value Reference Range Interpretation Comments MAGNESIUM (test code = 8119644215) 2.0 mg/dL 1.7-2.4 Lab Interpretation (test code = Normal 66270-7) [facility] (NA, K, CL, CO2, GLUCOSE, BUN, CREATININE, CA)2023-01-23 10:46:50 Test Item Value Reference Range Interpretation Comments NA (test code = 138 mmol/L 135-145 0572597861) K (test code = 4.0 mmol/L 3.5-5.0 5604869947) CL (test code = 109 mmol/L 98-108 H 5952097740) CO2 TOTAL (test code = 25 mmol/L 23-31 7572427019) AGAP (test code = 4 2-16 3997491479) BUN (test code = 13 mg/dL 7-23 0458595344) GLUCOSE (test code = 99 mg/dL 70-110 6058632667) CREATININE (test code = 1.14 mg/dL 0.50-1.04 H 0847467829) CALCIUM (test code = 7.8 mg/dL 8.6-10.6 L 4375798280) eGFR (test code = 52.0 mL/min/1.73m2 9161272632) WILLIAM (test code = WILLIAM) Association of Glomerular Filtration Rate (GFR) and Staging of Kidney Disease* + --+ --+ ------+| GFR (mL/min/1.73 m2) ?| With Kidney Damage ?| ?Without Kidney Damage+ --------+ --------+ +| ?>90 ?| ?Stage one ?| ? Normal ?+ ---+ ---+ -------+| ?60-89 ?| ?Stage two ?| ? Decreased GFR ? + --+ --+ ------+| ?30-59 ?| ?Stage three ?| ? Stage three ? + --+ --+ ------+| ?15-29 ?| ?Stage four ? | ? Stage four ?+ ---+ ---+ -------+| ?<15 (or dialysis) ? ?| ?Stage five ? | ? Stage five ?+ ---+ ---+ -------+ *Each stage assumes the associated GFR level has been in effect for at least three months. ?Stages 1 to 5, with or without kidney disease, indicate chronic kidney disease. Notes: Determination of stages one and two (with eGFR >59mL/min/1.73 m2) requires estimation of kidney damage for at least three months as defined by structural or functional abnormalities of the kidney, manifested by either:Pathological abnormalities or Markers of kidney damage (including abnormalities in the composition of the blood or urine or abnormalities in imaging tests). Lab Interpretation Abnormal (test code = 00404-3) [facility] Test Item Value Reference Range Interpretation Comments MAGNESIUM (test code = 4413089522) 1.9 mg/dL 1.7-2.4 Lab Interpretation (test code = Normal 60996-5) [facility] WITH [id number] 10:14:44 Test Item Value Reference Range Interpretation Comments WBC (test code = 14.46 See_Comment H [Automated 1090-2) message] The system which generated this result transmit major reference range : 4.30 - 11.10 10*3/?L. The reference range was not used to interpret this result as normal/abnormal . RBC (test code = 3.62 See_Comment L [Automated 359-8) message] The system which generated this result transmit major reference range : 3.93 - 5.25 10*6/?L. The reference range was not used to interpret this result as normal/abnormal . HGB (test code = 13.0 g/dL 11.6-15.0 718-7) HCT (test code = 38.6 % 35.7-45.2 4544-3) MCV (test code = 106.6 fL 80.6-95.5 H 787-2) MCH (test code = 35.9 pg 25.9-32.8 H 785-6) MCHC (test code = 33.7 g/dL 31.6-35.1 786-4) RDW-SD (test code = 56.5 fL 39.0-49.9 H 46896-5) RDW-CV (test code = 14.3 % 12.0-15.5 788-0) PLT (test code = 334 See_Comment [Automated 777-3) message] The system which generated this result transmit major reference range : 166 - 358 10*3/ ?L. The reference range was not u sed to interpret th is result as normal/abnormal . MPV (test code = 9.1 fL 9.5-12.9 L 46595-6) NRBC/100 WBC (test 0.0 See_Comment [Automat ed code = 1490467131) message] The system which generated this result transmit major reference range : 0.0 - 10.0 /100 WBCs. The reference range was not used to interpret this result as normal/abnormal . NRBC x10^3 (test code See_Comment [Auto mated = 6487615418) message] The system which generated this result transmit major reference range : 10*3/?L. The reference range was not used to interpret this result as normal/abnormal . GRAN MAT (NEUT) % 77.3 % (test code = 770-8) IMM GRAN % (test code 0.50 % = 8237672163) LYMPH % (test code = 13.7 % 736-9) MONO % (test code = 6.2 % 5905-5) EOS % (test code = 2.0 % 713-8) BASO % (test code = 0.3 % 706-2) GRAN MAT x10^3(ANC) 11.17 10*3/uL 1.88-7.09 H (test code = 6178555682) IMM GRAN x10^3 (test 0.07 10*3/uL 0.00-0.06 H code = 0013428973) LYMPH x10^3 (test code 1.98 10*3/uL 1.32-3.29 = 731-0) MONO x10^3 (test code 0.90 10*3/uL 0.33-0.92 = 742-7) EOS x10^3 (test code = 0.29 10*3/uL 0.03-0.39 711-2) BASO x10^3 (test code 0.05 10*3/uL 0.01-0.07 = 704-7) Lab Interpretation Abnormal (test code = 61973-1) [facility] + Lactic [id number] 08:54:36 Test Item Value Reference Range Interpretation Comments PH (test code = 2) 7.39 7.35-7.45 PCO2 (test code = 36 See_Comment [Automate d 9258011129) message] The sy stem which generated this result transmitted reference range : 35 - 45 mmHg. The reference range was not used to interpret this result as normal/abnormal . PO2 (test code = 93 See_Comment [Automated 2468767440) message] The sy stem which generated this result transmitted reference range : 80 - 100 mmHg. The reference range was not used to interpret this result as normal/abnormal . HCO3 (test code = 21 See_Comment L [Automate d 5240318201) message] The sy stem which generated this result transmitted reference range : 22 - 26 mEq/L. The reference range was not used to interpret this result as normal/abnormal . BE (test code = -2.9 See_Comment [Automated 3172589040) message] The sy stem which generated this result transmitted reference range : -3.0 - 3.0 mEq/ L. The reference r fifi was not used to interpret this result as normal/abnormal . THB (test code = 14.2 g/dL 12.0-16.0 9352733764) %O2HB (test code = 96.3 % 94.0-99.0 2903785261) %COHB ART (test code = 0.3 % 0.0-1.5 3086380276) %METHB ART (test code = 0.3 % 0.4-1.5 L 8197150408) VOL%O2 ART (test code = 19.3 % 15.0-23.0 5102452441) NA (test code = 140 mmol/L 135-145 8304764332) K+ (test code = 3.4 mmol/L 3.5-5.0 L 7272538230) AC CA IONZ (test code = 4.30 mg/dL 4.50-5.30 L 7655991769) GLUCOSE (test code = 101 mg/dL 70-110 7955466554) LACTIC ACID (test code 1.69 mmol/L 0.50-2.20 QUES = 2106595319) Lab Interpretation Abnormal (test code = 48973-2) [facility]"
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
[2023-03-14 15:31] VITALS: TEMP 97.7; O2SAT 100
[2023-03-14 15:32] VITALS: BP 110/88
[2023-03-14] MEDS ORDERED: ACETAMINOPHEN 500 MG TAB ONE (15:33)
== END 2023-03-14 15:25 | disposition home or self-care (01) ==
LOC: ER 14:00
DX: S00.83XA Contusion of other part of head, initial encounter (principal); Z72.0 Tobacco use
CPT/HCPCS: 70450; 70486; 72125; 76377; 99284